=== PATIENT | male | born 1960 | race Caucasian/White ===

== ENCOUNTER 2019-02-07 13:54 | Outpatient (RCR) | payer OTHER, SELFPAY ==
[2019-02-07 14:05] VITALS: BP_SYST 90
--- NOTE | 2019-02-07 14:50 | PTOPEVAL ---
Thank you for referring this patient to [facility]. Please review, sign, date and return this plan of care [facility]. I agree with and certify that the following plan of care is medically necessary. Referring Physician Date Admitting Provider: Attending Provider: PHYSICIAN NOT ON STAFF Referring Provider: *PT Outpatient Evaluation Start: 02/07/19 14:05 Freq: Status: Active Protocol: Document 02/07/19 14:05 Lisy (Rec: 02/07/19 14:38 [facility] [id number]) Therapy Assessment Status Assessment Status Assessment Status Evaluation Outpatient Past Medical History Respiratory History Hx Asthma Yes Hx Bronchitis Yes Hx Chronic Obstructive Pulmonary Disease Yes (COPD) Gastrointestinal History Hx Cirrhosis Yes Hx Hepatitis Yes Psychosocial History Hx Depression Yes Evaluation Information Problem Diagnosis L shoulder pain, rotator cuff tear Onset 02/05/19 Additional Evaluation Detail quick dash = 40% Subjective Information patient reports he has been Query Text:As Reported By Patient/ having pain in the L shoulder Family for many years. however, he reports the pain has been significantly worse since a fall about 6 months ago. he reports he fell when he was dizzy. he reports he does ahve a rotator cuff tear in the L shoulder. he reports he is coming to therapy to improve his mobility and strengthen up the shoulder prior to surgery . Previous Treatments Previous Treatments For This Problem cortizone injection. Prior Level of Function Comments Additional Prior Level of Function patient reports since he fell Comments and injured his shoulder, he has been unable lift or carry objects. he reports he has also been unable to reach out to his side or get dressed. he reports prior to fall he was able to do all activities, but with mild pain in the L shoulder. Pain Assessment Timing of Pain Assessment Timing of Pain Assessment Assessment Pain Scale Pain Scale Used Numeric (1 - 10) Self Report Pain Assessment Left Shoulder(s) Reported Pain Level
--- NOTE | 2019-02-19 11:35 | PCPTNOTE ---
02/19/19 patient cancelled appt today. ERICK
--- NOTE | 2019-05-15 08:03 | PCPTNOTE ---
05/15/19 - mr. andre has recently had surgery, and is now coming to skilled PT under a new order. this account will be dc'd from skilled PT services and all progress towards goals will be taken from his most recent evaluation/note. MICHELLE
== END 2019-02-27 23:59 | disposition home or self-care (01) ==
LOC: CHSPT 13:54
DX: M25.512 Pain in left shoulder (principal)
CPT/HCPCS: 97014; 97110; 97162; G0283

== ENCOUNTER 2019-05-03 14:33 | Outpatient (RCR) | payer MEDICAID, OTHER, SELFPAY ==
--- NOTE | 2019-05-03 15:06 | PTOPEVAL ---
Thank you for referring this patient to [facility]. Please review, sign, date and return this plan of care LYRIC. I agree with and certify that the following plan of care is medically necessary. Referring Physician Date Admitting Provider: Attending Provider: Yogi Kirkpatrick, Referring Provider: *PT Outpatient Evaluation Start: 05/03/19 14:45 Freq: Status: Active Protocol: Document 05/03/19 14:45 J (Rec: 05/03/19 15:05 J [id number]) Therapy Assessment Status Assessment Status Assessment Status Evaluation Outpatient Past Medical History Respiratory History Hx Asthma Yes Hx Bronchitis Yes Hx Chronic Obstructive Pulmonary Disease Yes (COPD) Gastrointestinal History Hx Cirrhosis Yes Hx Hepatitis Yes Psychosocial History Hx Depression Yes Evaluation Information Problem Diagnosis s/p L RTC repair Onset 03/29/19 Additional Evaluation Detail patient arrives to therapy without a sling this date. he reports he is unable to do his home and self care activities with the sling on so he DC'd the sling himself. Subjective Information patient reports he had a Query Text:As Reported By Patient/ repairl of a torn RTC on 03/29 Family*. he reports the L shoulder had been getting weaker for several month prior to surgery . he reports he is currently still having pain, tightness, and decreased use of the L UE. he presents with orders for skilled outpatient therapy with restrictions for PROM and AAROM only. Prior Level of Function Comments Additional Prior Level of Function patient report prior to Comments surgery he was independent with all home and self care activities. he reports he does not work. he reports prior to beginning of weakness and discovery of tear he was able to do all activities without lifting or movement restrictions. Pain Assessment Timing of Pain Assessment Timing of Pain Assessment Assessment Pain Scale Pain Scale Used Numeric (1 - 10) Self Report Pain Asses
--- NOTE | 2019-05-10 13:05 | PCPTNOTE ---
Patient called and cancelled treatment today. ERICK
--- NOTE | 2019-05-16 14:29 | PCPTNOTE ---
05/16/19 - patient called and cancelled therapy this date. JTF
--- NOTE | 2019-05-24 14:06 | PCPTNOTE ---
05/24/19-pt called and cancelled apt today.-HM.
--- NOTE | 2019-06-14 13:34 | PCPTNOTE ---
06/14/19-pt cancelled apt as he tried to get a prescription filled and they said his insurance said it had been terminated and he did not know why. pt wanted to figure this out before seeking additional treatment. -BJORN
[2019-07-17 14:00] VITALS: BP_SYST 90
--- NOTE | 2019-07-17 14:54 | PTOPEVAL ---
Thank you for referring [address] to [facility]. Please review, sign, date and return this plan of care LYRIC. I agree with and certify that the following plan of care is medically necessary. Referring Physician Date Admitting Provider: Attending Provider: Yogi Kirkpatrick, MD Referring Provider: *PT Outpatient Evaluation Start: 05/03/19 14:45 Freq: Status: Active Protocol: Document 07/17/19 14:00 JTF (Rec: 07/17/19 14:54 [facility] [id number]) Therapy Assessment Status Assessment Status Assessment Status Re-evaluation Outpatient Past Medical History Respiratory History Hx Asthma Yes Hx Bronchitis Yes Hx Chronic Obstructive Pulmonary Disease Yes (COPD) Gastrointestinal History Hx Cirrhosis Yes Hx Hepatitis Yes Psychosocial History Hx Depression Yes Evaluation Information Problem Diagnosis s/p L RTC repair Additional Evaluation Detail 3+ months post-op Subjective Information patient reports he is sore Query Text:As Reported By Patient/ still this date. he reports he Family has been away from therapy due to insurance reasons. he reports has been doing his exercises at home. he reports he still has limited strength and mobility of the L shoulder . he presents to therapy with a new order from his MD to continue skilled PT. Pain Assessment Timing of Pain Assessment Timing of Pain Assessment Assessment Pain Scale Pain Scale Used Numeric (1 - 10) Self Report Pain Assessment Left Shoulder(s) Reported Pain Level 4 Pain Description Aching,Soreness Greatest Pain Intensity 10 Pain Score Pain Score 4: Self Report Upper Extremity Range of Motion Scapular/ Shoulder Range of Motion Left Shoulder Flexion - Active 90 Shoulder Flexion - Passive 130 Shoulder Abduction - Active 75 Shoulder Abduction - Passive 90 Shoulder Medial Rotation - Passive 20 Shoulder Medial Rotation - Active functional reach to the Query Text:Reach Behind the Back occiput/upper cervical spine with compensation by shoulder adduction and flexion. Shoulder Lateral Rotation - Passive 45 Shoulder Lateral Rotation - Active functional reach to the Query Text:Reach Behind the Head ipsilateral PSIS. Upper Extremity Muscle Strength Testing Scapular/Shoulder Left Shoulder Flexion Strength 3- Fair - Shoulder Abduction Strength
== END 2019-08-07 16:17 | disposition still patient (30) ==
LOC: CHSPT 14:33
PROVIDERS: Visit Provider Orthopaedic Surgery
DX: M75.102 Unspecified rotator cuff tear or rupture of left shoulder, not specified as traumatic (principal)
CPT/HCPCS: 97014; 97110; 97140; 97161; G0283

== ENCOUNTER 2019-08-07 14:32 | Outpatient (RCR) | payer OTHER, SELFPAY ==
[2019-08-02 16:20] VITALS: BP_SYST 90
--- NOTE | 2019-08-13 13:09 | PCPTNOTE ---
patient cancelled appt today. ERICK
--- NOTE | 2019-11-20 16:32 | PCPTNOTE ---
11/20/19 - patient has not been to therapy in several months. as of this date, patient will be DC'd from skilled PT services, and all progress towards goals will be taken from patients most recent evaluation/note. MICHELLE
== END 2019-09-25 23:59 | disposition home or self-care (01) ==
LOC: CHSPT 14:32
PROVIDERS: Visit Provider Orthopaedic Surgery
DX: M75.102 Unspecified rotator cuff tear or rupture of left shoulder, not specified as traumatic (principal)
CPT/HCPCS: 97014; 97110; G0283

== ENCOUNTER 2021-01-23 12:50 | Outpatient (CLI) | payer MEDICARE, SELFPAY ==
--- NOTE | ~2021-01-23 | CT_ITS ---
EXAMINATION: CT lung screening DATE: 01/23/2021 13:09 INDICATION: History of tobacco dependence. TECHNIQUE: Computed tomography (CT) of the chest was performed without intravenous contrast. The dose -length product was 148.72 mGy-cm. Automated exposure control and iterative reconstruction technique were employed. COMPARISON: CT dated 05/24/2018 FINDINGS: No thoracic lymphadenopathy. No significant pleural or pericardial effusion. Heart size is normal. The upper abdomen is unremarkable. There is a 5 mm groundglass nodule in the right upper lobe , image 27. There is linear scarring/atelectasis of the left upper lobe, unchanged from prior study. There is apical pleural thickening/scarring. There are small upper lobe nodules measuring 2 mm or les s in the subpleural space. No focal airspace consolidation. No endobronchial lesions. No pneumothorax . No acute osseous abnormality. IMPRESSION: 1. Lung-RADS category 2: Benign appearance or behavior. Continue annual screening with noncontrast lo w-dose chest CT in 12 months. Reviewed, dictated and finalized at location A. IMPRESSION: 1. Lung-RADS category 2: Benign appearance or behavior. Continue annual screeni ng with noncontrast low-dose chest CT in 12 months.
== END 2021-01-23 12:51 | disposition home or self-care (01) ==
LOC: CHSIMG 12:53
PROVIDERS: PCP Family Medicine; Visit Provider Family Medicine
DX: Z12.2 Encounter for screening for malignant neoplasm of respiratory organs (principal); Z87.891 Personal history of nicotine dependence
CPT/HCPCS: 71271

== ENCOUNTER 2021-01-26 12:27 | Outpatient (CLI) | payer MEDICARE, MEDICAID, SELFPAY ==
--- NOTE | ~2021-01-26 | US_ITS ---
EXAMINATION: US abdomen complete DATE: 01/26/2021 13:01 INDICATION: Alcoholic cirrhosis TECHNIQUE: Multiple grayscale and Doppler ultrasound images of the abdomen were obtained. COMPARISON: CT, 12/03/2018 FINDINGS: Bowel gas obscures visualization of the pancreas. The visualized portions of the pancreas a re unremarkable. There is a 1.3 x 1.6 x 1.6 cm hypoechoic lesion of the right hepatic lobe. The liver surface is nodular. Normal hepatopetal flow in the main portal vein. There is a small amount of debr is in the gallbladder neck. There is no wall thickening, pericholecystic fluid or gallbladder distent ion. The normal common bile duct measures 6 mm. There was no sonographic Damon sign. The visualized portions of the aorta and inferior vena cava are normal. The right kidney measures 11.4 x 5.8 x 5.6 cm. The left kidney measures 11.0 x 5.8 x 5.1 cm. The kidn eys demonstrate normal parenchymal echogenicity. There is no hydronephrosis. The spleen is normal in appearance and measures 10.3 cm. IMPRESSION: 1. Cirrhosis with an indeterminate hypoechoic lesion of the right hepatic lobe. Finding raises concer n for hepatocellular carcinoma. Further evaluation by CT or MRI without and with contrast is recommen ded. Reviewed, dictated and finalized at location B. IMPRESSION: 1. Cirrhosis with an indeterminate hypoechoic lesion of the right hepatic lobe. Finding raises concern for hepatocellular carcinoma. Further evaluation by CT or MRI without and with contrast is recommended.
== END 2021-01-26 12:28 | disposition home or self-care (01) ==
LOC: CHSIMG 12:30
PROVIDERS: PCP Family Medicine; Visit Provider Family Medicine
DX: K70.30 Alcoholic cirrhosis of liver without ascites (principal)
CPT/HCPCS: 76700

== ENCOUNTER 2021-01-30 12:07 | Outpatient (CLI) | payer MEDICARE, MEDICAID, SELFPAY ==
--- NOTE | ~2021-01-30 | CT_ITS ---
EXAMINATION: CT abdomen wo/w con INDICATION: Alcoholic cirrhosis of the liver without ascites, indeterminate liver mass on ultrasound TECHNIQUE: Computed tomographic images of the abdomen were obtained without intravenous contrast. Joann ges were then obtained after the administration of 100 cc of Omnipaque 350 intravenous contrast in th e arterial and portal venous phases. The dose-length product (DLP) was 1009.60 mGy-cm. Automated expo sure control and iterative reconstruction technique were employed. COMPARISON: CT, 12/03/2018; ultrasound, 01/26/2021 FINDINGS: The visualized lung bases are clear. The heart size is normal. There is a 1.7 cm arterial e nhancing lesion in liver segment VII which fades to isodense in the portal venous phase. No enhancing capsule or washout are identified. There is nodularity of the liver surface. The spleen, pancreas, a nd adrenal glands are normal. There is mild gallbladder distention. Gastric and splenic varices are n oted. The kidneys are unremarkable. There are no pathologically enlarged abdominal lymph nodes. There is no free intraperitoneal gas or evidence of bowel obstruction. IMPRESSION: 1. LI-RADS category 3, intermediate probability of malignancy. Follow-up CT or MRI without and with c ontrast in 3-6 months is recommended. Reviewed, dictated and finalized at location B. IMPRESSION: 1. LI-RADS category 3, intermediate probability of malignancy. Follow-up CT or MRI without and with contrast in 3-6 months is recommended.
== END 2021-01-30 12:08 | disposition home or self-care (01) ==
LOC: CHSIMG 12:08
PROVIDERS: PCP Family Medicine; Visit Provider Family Medicine
DX: K70.30 Alcoholic cirrhosis of liver without ascites (principal)
CPT/HCPCS: 74170; Q9967

== ENCOUNTER 2021-02-16 15:59 | Outpatient (CLI) | payer MEDICARE, MEDICAID, SELFPAY ==
[2021-02-16 16:16] LABS: Basophils Percent Auto 0.4 % (0.2-1.2); Eosinophils Absolute Auto 0.1 K/mm3 (0-0.3); Eosinophils Percent Auto 2.2 % (0-4.4); Hematocrit 33.4 % (42.0-52.0); Hemoglobin 11.6 g/dL (14.0-18.0); Lymphocytes Absolute Auto 1.48 K/mm3 (0.9-3.2); Lymphocytes Percent Auto 54.8 % (18.3-44.2); Mean Corpuscular HGB Conc 34.7 g/dl (32-36); Mean Corpuscular Hemoglobin 40.3 pg (26-34); Mean Platelet Volume 9.5 fl (7.4-10.4); Monocytes Absolute Auto 0.3 K/mm3 (0.1-0.6); Monocytes Percent Auto 9.3 % (2.6-8.5); Neutrophils Absolute Auto 0.9 K/mm3 (1.3-6.7); Neutrophils Percent Auto 33.3 % (45.5-73.1); Platelet Count Result 28 k/mm3 (150-375); Red Blood Count 2.88 M/mm3 (4.6-6.20); Red Cell Distribution Width 14.5 % (11.5-14.5); White Blood Count 2.7 K/mm3 (4.5-10.0)
[2021-02-16 16:52] LABS: Alanine Aminotransferase 35 U/L (4-50); Albumin Level 3.7 g/dL (3.5-5.1); Alkaline Phosphatase 133 U/L (38-126); Anion Gap 4 mmol/L (8-16); Aspartate Amino Transferase 66 U/L (17-59); Bilirubin,Total 1.5 mg/dL (0.2-1.3); Blood Urea Nitrogen 5 mg/dL (9-20); Calcium 9.2 mg/dL (8.4-10.2); Carbon Dioxide 29 mmol/L (22-30); Chloride 98 mmol/L (98-107); Estimated Glomerular Filt Rate > 60; Glucose 108 mg/dL (65-110); Potassium 3.9 mmol/L (3.4-5.0); Sodium 131 mmol/L (137-145)
[2021-02-16 16:58] LABS: Iron 271 ug/dL (49-181)
[2021-02-16 17:08] LABS: Percent Iron Saturation 90 % (20-50)
[2021-02-16 19:28] LABS: Folic Acid 3.8 ng/mL (2.76->20)
== END 2021-02-16 16:00 | disposition home or self-care (01) ==
LOC: ANHLAB 16:05
PROVIDERS: PCP Family Medicine; Visit Provider Internal Medicine Hematology & Oncology
DX: D64.9 Anemia, unspecified (principal)
CPT/HCPCS: 36415; 80053; 82607; 82728; 82746; 83540; 83550; 85025; 85055

== ENCOUNTER 2021-06-15 15:59 | Outpatient (CLI) | payer MEDICARE, SELFPAY ==
[2021-06-15 17:21] LABS: Estimated Glomerular Filt Rate > 60
== END 2021-06-15 16:00 | disposition home or self-care (01) ==
LOC: CHSLAB 16:00
PROVIDERS: PCP Family Medicine; Visit Provider Family Medicine
DX: Z04.9 Encounter for examination and observation for unspecified reason (principal)
CPT/HCPCS: 99199

== ENCOUNTER 2021-06-16 12:43 | Outpatient (CLI) | payer MEDICARE, SELFPAY ==
--- NOTE | ~2021-06-16 | CT_ITS ---
EXAMINATION: CT abdomen pelvis wo/w con DATE: 06/16/2021 13:31 INDICATION: Follow-up liver mass TECHNIQUE: Computed tomography (CT) of the abdomen and pelvis was performed without and with 100 cc O mnipaque 350 intravenous contrast. The dose-length product was 1398.52 mGy-cm. Automated exposure con trol and iterative reconstruction technique were employed. COMPARISON: CT dated 01/26/2021. FINDINGS: There is an enlarging 2.1 cm hypervascular mass of the right hepatic lobe with a background of cirrhosis of the liver. Portal vein appears to be patent. There is a hypervascular lesion of the spleen measuring 2 cm. The pancreas, adrenal glands and kidneys are unremarkable. Gallbladder is pres ent. Nonobstructive bowel gas pattern. There is bladder wall thickening, likely due to underdistentio n. No significant lymphadenopathy. There are multiple collateral vessels in the upper abdomen suggest ing portal hypertension. Moderate lumbar spondylosis. No focal lytic or blastic lesions. IMPRESSION: 1. Enlarging 2.1 cm hypervascular mass of the right hepatic lobe with a background of cirrhosis. This must be presumed hepatocellular carcinoma until proven otherwise. 2: Subtle hypovascular mass of the spleen measures 2 cm, possibly metastases. Reviewed, dictated and finalized at location A. IMPRESSION: 1. Enlarging 2.1 cm hypervascular mass of the right hepatic lobe with a backgro und of cirrhosis. This must be presumed hepatocellular carcinoma until proven o therwise. 2: Subtle hypovascular mass of the spleen measures 2 cm, possibly metastases.
== END 2021-06-16 12:44 | disposition home or self-care (01) ==
PROVIDERS: PCP Family Medicine; Visit Provider Family Medicine
DX: R16.0 Hepatomegaly, not elsewhere classified (principal)
CPT/HCPCS: 74178; Q9967

== ENCOUNTER 2021-07-01 06:54 | Outpatient (CLI) | payer MEDICARE, SELFPAY ==
--- NOTE | 2021-06-24 12:56 | PC.NURSE ---
Pre Radiology instructions Report to the Outpatient Waiting Room, entrance under the green pavilion located off [facility], at time 0730_ on date 07/03/21 . Procedure Time: __929 . One visitor will be allowed to accompany the patient into the hospital. The visitor will be instructed to remain with patient at all times or leave the building. We will allow the visitor to come back to the postoperative area when patient is ready. You and your visitor will be asked a series of questions to screen for COVID 19 for your protection. NO FOOD OR LIQUID FOR 6 HOURS BEFORE SURGERY-STOP AT 3:30 AM ON 07/03/21 A mask is required within the hospital. Pre-procedure COVID Testing Requirements: No COVID Test needed if: (proof is required; if not received patient will have Rapid Test prior to entry)- Patient has received COVID Vaccine at least 14 days prior to procedure date or- Patient has positive COVID test result within last 90 days of procedure date. COVID Test needed if above criteria is not met If not COVID vaccinated a COVID test must be conducted within 72 hours of surgery and patient is asked to isolate self from time of testing until procedure. You will go to the [facility] for your COVID testing. The [facility] is located at the corner of [address] [facility]. You will only be called if COVID results are positive and your surgeon may reschedule your elective procedure date Patients are to have no food or drink 6 hours prior to procedure time Driving will be restricted after the procedure, you must have a person to drive you home. Labs will be drawn in preop area and once reviewed, you will be taken to radiology area for procedure. When the procedure is completed, you will be taken to outpatient where you will be monitored for several hours. You may have one visitor in this area. Other than holding anti-coagulants, patient may take other medication(s) as scheduled. Prior to your appointment date patients are instructed to hold anti-coagulants after discussing with ordering provider to stop. If unable to discontinue anti-coagulants please notify radiologist. No aspirin or warfarin (Coumadin) for 7 days prior to the procedure. No clopidogrel (Plavix), ticagrelor (Brilinta), prasugrel (Effient) or dabigatran (Pradaxa) for 5 days prior to the procedure. No rivaroxaban (Xarelto), apixaban (Eliquis), dipyridamole (Aggrenox or Persantine) or cilostazol (Pletal) for 2 days prior to the procedure. Medications to discontinue per physician: N/A Date to take last dose: TAKE NORMAL MORNING MEDS Please leave all valuables, including medications, at home the day of procedure. The hospital will not accept responsibility for valuables. Wear comfortable, loose fitting clothing. Follow any additional instructions given to you from ordering provider. Telephone instructions given to ___PAUL and asked if any additional questions and then verbalized understanding. Patient advised to call scheduling provider office or registration scheduling [phone] if any additional questions.
[2021-06-24 13:12] VITALS: BMI 25.4
--- NOTE | ~2021-07-01 | US_ITS ---
I discussed the 2.1 cm liver mass with Dr. Mg. The imaging grade is LI-RADS category LR-5: Def initely hepatocellular carcinoma. Given the imaging category of the mass and the relatively high biop sy risk from the patient's low platelet count, I recommend treating the patient without a tissue diag nosis. The biopsy today was canceled. Reviewed, dictated and finalized at location A.
[2021-07-01 07:26] LABS: Immature Platelet Fraction Pct 4.7 % (0.9-11.2); Mean Platelet Volume 10.7 fl (7.4-10.4); Platelet Count Result 31 k/mm3 (150-375)
[2021-07-01 07:29] VITALS: BP 154/82; PULSE 78; RESP 18; TEMP 36.8; O2SAT 100
[2021-07-01 07:34] LABS: INR 1.6; Prothrombin Time 18.7 Seconds (11.1-14.7)
== END 2021-07-01 08:40 | disposition home or self-care (01) ==
LOC: ANHSURGERY 06:57
PROVIDERS: PCP Family Medicine; Visit Provider Radiology Diagnostic Radiology
PROC: BF45ZZZ Ultrasonography of Liver (ICD-10-PCS; CPT 47000; principal; 2021-07-01 09:30)
DX: K76.9 Liver disease, unspecified (principal)
CPT/HCPCS: 36415; 85049; 85055; 85610; 99199; 99211; G0463

== ENCOUNTER 2021-07-20 14:02 | Outpatient (CLI) | payer MEDICARE, MEDICAID, SELFPAY ==
[2021-07-20 14:18] LABS: Hematocrit 33.2 % (40.0-54.0); Hemoglobin 11.5 g/dL (14.0-18.0); Immature Platelet Fraction Pct 3.4 % (1.0-7.0); Mean Corpuscular HGB Conc 34.6 g/dL (32.0-36.0); Mean Corpuscular Hemoglobin 40.5 pg (27.0-31.0); Mean Corpuscular Volume 116.9 fL (78.0-102.0); Mean Platelet Volume 9.9 fl (8.7-11.0); Platelet Count Result 31 K/mm3 (150-420); Red Blood Count 2.84 M/mm3 (4.70-6.10); Red Cell Distribution Width 15.5 % (11.6-14.4); White Blood Count 3.5 K/mm3 (4.8-10.8)
[2021-07-20 15:31] LABS: Alanine Aminotransferase 53 U/L (16-63); Albumin Level 2.8 g/dL (3.4-5.0); Alkaline Phosphatase 140 U/L (46-116); Anion Gap 7 mmol/L (8-16); Aspartate Amino Transferase 64 U/L (15-37); Bilirubin,Total 1.6 mg/dL (0.00-1.00); Blood Urea Nitrogen 10 mg/dL (7-18); Calcium 8.3 mg/dL (8.5-10.1); Carbon Dioxide 27 mmol/L (21-32); Chloride 99 mmol/L (98-108); Estimated Glomerular Filt Rate > 60; Ferritin 769 ng/mL (26-388); Glucose 105 mg/dL (70-99); Iron 212 ug/dL (65-175); Osmolality Calculated 275 mOsm/kg (285-295); Percent Iron Saturation 108 % (12-57); Potassium 3.6 mmol/L (3.5-5.1); Sodium 133 mmol/L (136-145); Total Protein 7.4 g/dL (6.4-8.2)
== END 2021-07-20 14:03 | disposition home or self-care (01) ==
LOC: CHSLAB 14:05
PROVIDERS: PCP Family Medicine; Visit Provider Internal Medicine Hematology & Oncology
DX: D64.9 Anemia, unspecified (principal)
CPT/HCPCS: 36415; 80053; 82728; 83540; 83550; 85027; 85055

== ENCOUNTER 2021-07-31 13:00 | Outpatient (CLI) | payer MEDICARE, MEDICAID, SELFPAY ==
--- NOTE | ~2021-07-31 | CT_ITS ---
EXAMINATION: CT abdomen pelvis wo/w con DATE: 07/31/2021 13:32 INDICATION: Liver mass. Abdominal pain. Hematuria. TECHNIQUE: Computed tomography (CT) of the abdomen and pelvis was performed without and with 100 mL O mnipaque 350 intravenous contrast. Automated exposure control and iterative reconstruction technique were employed. The dose-length product was 1134.11 mGy-cm. COMPARISON: CT abdomen and pelvis 06/16/2021, CT abdomen 01/30/21 FINDINGS: The visualized portions of the lung bases are clear without pneumonia or pleural effusion. The heart size is normal. No pericardial effusion. The liver demonstrates a nodular surface contour, consistent with cirrhosis. In the right hepatic lobe, there is a 2.3 cm arterially hyperenhancing mas s with washout, increased from 2.0 cm on 01/30/21. The gallbladder is normal. The spleen is normal in size. The pancreas, adrenal glands, and kidneys are normal. There are paraesophageal varices. There i s a splenorenal venous shunt. There are no dilated loops of bowel. The appendix is normal. There is n o free intraperitoneal fluid. There are no pathologically enlarged lymph nodes. The prostate is mildl y enlarged. There is a right inguinal hernia containing fat. There is severe lower lumbar spondylosis . IMPRESSION: 1. LI-RADS category 5: Definitely hepatocellular carcinoma. 2. Cirrhosis of the liver with portal venous hypertension. Reviewed, dictated and finalized at location A.
== END 2021-07-31 13:01 | disposition home or self-care (01) ==
LOC: CHSIMG 13:01
PROVIDERS: PCP Family Medicine; Visit Provider Family Medicine
DX: R16.0 Hepatomegaly, not elsewhere classified (principal); R10.9 Unspecified abdominal pain
CPT/HCPCS: 74178; Q9967

== ENCOUNTER 2021-09-09 16:15 | Outpatient (CLI) | payer MEDICARE, SELFPAY ==
--- NOTE | ~2021-09-09 | XR_ITS ---
EXAM: XR ribs LT 2V w CXR 2V DATE: 09/09/2021 17:05 HISTORY: LT sided lower rib pain x 3 days NKI . COMPARISON: None available. FINDINGS: Left humeral soft tissue anchors. Normal mineralization. No fracture or dislocation. No lyt ic or blastic lesion. Joint spaces are maintained. No erosion or periosteal change. Soft tissues with in normal limits. IMPRESSION: No acute osseous finding in the left ribs. Reviewed, dictated and finalized at location K.
[2021-09-09 16:36] LABS: Basophils Absolute Auto 0.02 K/mm3 (0.00-0.10); Basophils Percent Auto 0.5 % (0.0-1.0); Eosinophils Percent Auto 2.4 % (1.0-6.0); Hematocrit 29.6 % (40.0-54.0); Hemoglobin 10.2 g/dL (14.0-18.0); Immature Granulocyte Absolute 0.01 K/mm3 (0.00-0.00); Immature Granulocyte Percent A 0.2 % (0.0-0.0); Immature Platelet Fraction Pct 2.5 % (1.0-7.0); Lymphocytes Percent Auto 47.6 % (18.0-42.0); Mean Corpuscular HGB Conc 34.5 g/dL (32.0-36.0); Mean Corpuscular Hemoglobin 43.4 pg (27.0-31.0); Mean Platelet Volume 10.2 fl (8.7-11.0); Monocytes Absolute Auto 0.51 K/mm3 (0.10-0.90); Monocytes Percent Auto 12.1 % (2.0-11.0); Neutrophils Absolute Auto 1.6 K/mm3 (1.7-7.2); Neutrophils Percent Auto 37.2 % (50.0-70.0); Platelet Count Result 40 K/mm3 (150-420); Red Blood Count 2.35 M/mm3 (4.70-6.10); White Blood Count 4.2 K/mm3 (4.8-10.8)
[2021-09-09 17:04] LABS: Alanine Aminotransferase 40 U/L (16-63); Albumin Level 2.7 g/dL (3.4-5.0); Alkaline Phosphatase 116 U/L (46-116); Amylase 65 U/L (25-115); Anion Gap 7 mmol/L (8-16); Aspartate Amino Transferase 47 U/L (15-37); Bilirubin,Total 1.3 mg/dL (0.00-1.00); Blood Urea Nitrogen 5 mg/dL (7-18); Calcium 8.5 mg/dL (8.5-10.1); Carbon Dioxide 27 mmol/L (21-32); Chloride 99 mmol/L (98-108); Estimated Glomerular Filt Rate > 60; Glucose 97 mg/dL (70-99); Lipase 251 U/L (73-393); Osmolality Calculated 273 mOsm/kg (285-295); Potassium 3.6 mmol/L (3.5-5.1); Sodium 133 mmol/L (136-145); Total Protein 7.9 g/dL (6.4-8.2)
== END 2021-09-09 16:16 | disposition home or self-care (01) ==
LOC: CHSLAB 16:18
PROVIDERS: PCP Family Medicine; Visit Provider Family Medicine
DX: R10.12 Left upper quadrant pain (principal); K92.1 Melena; R07.89 Other chest pain
CPT/HCPCS: 36415; 71046; 71100; 80053; 82150; 83690; 85025; 85055

== ENCOUNTER 2021-09-11 10:32 | Outpatient (CLI) | payer MEDICARE, SELFPAY ==
--- NOTE | ~2021-09-11 | US_ITS ---
EXAMINATION: US abdomen limited DATE: 09/11/2021 11:30 INDICATION: Left upper quadrant pain for 3 days. Pain had subsided at the time of examination. Histor y of cirrhosis, portal venous hypertension, and hepatocellular carcinoma. TECHNIQUE: Multiple grayscale and Doppler ultrasound images of limited portions of the abdomen were o btained. COMPARISON: CT abdomen and pelvis 07/31/2021 FINDINGS: The left kidney was grossly normal, without hydronephrosis, mass, or calcification. The spl een is normal in appearance and measures 11.2 cm. IMPRESSION: 1. Normal left upper quadrant ultrasound findings. Reviewed, dictated and finalized at location K.
== END 2021-09-11 10:33 | disposition home or self-care (01) ==
LOC: CHSIMG 10:34
PROVIDERS: PCP Family Medicine; Visit Provider Family Medicine
DX: R10.12 Left upper quadrant pain (principal)
CPT/HCPCS: 76705

== ENCOUNTER 2022-06-02 16:10 | Outpatient (CLI) | payer MEDICARE, SELFPAY ==
--- NOTE | ~2022-06-02 | XR_ITS ---
XR sacrum coccyx min 2V DATE: 06/02/2022 18:03 INDICATION: Left leg numbness for one month. No known injury. TECHNIQUE: AP, angled AP and lateral views COMPARISON: None FINDINGS: Mild degenerative disc disease at L3-4, L4-5 and moderate degenerative disc disease at L5-S 1. No fracture or bone destruction of the sacrum or coccyx is evident. The pubic symphysis and sacroilia c joints are intact. No erosive change or ankylosis at the sacroiliac joints. IMPRESSION: No significant abnormality of the sacrum or coccyx Degenerative disease of the lumbar spine Reviewed, dictated and finalized at location L. 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
[2022-06-02 16:30] LABS: Appearance Urine Clear (Clear); Bilirubin Urine 1+ (Negative); Blood Urine Trace-Intact (Negative); Glucose Urine UA Negative (Negative); Ketones Urine Trace (Negative); Leukocyte Esterase Ur Trace (Negative); Nitrate Urine Negative (Negative); Protein Urine Negative (Negative)
[2022-06-02 16:32] LABS: Basophils Absolute Auto 0.01 K/mm3 (0.00-0.10); Basophils Percent Auto 0.2 % (0.0-1.0); Eosinophils Absolute Auto 0.16 K/mm3 (0.02-0.50); Eosinophils Percent Auto 3.4 % (1.0-6.0); Hematocrit 34.5 % (40.0-54.0); Hemoglobin 11.9 g/dL (14.0-18.0); Immature Granulocyte Absolute 0.01 K/mm3 (0.00-0.00); Immature Granulocyte Percent A 0.2 % (0.0-0.0); Immature Platelet Fraction Pct 2.3 % (1.0-7.0); Lymphocytes Absolute Auto 2.22 K/mm3 (1.10-4.50); Lymphocytes Percent Auto 46.9 % (18.0-42.0); Mean Corpuscular HGB Conc 34.5 g/dL (32.0-36.0); Mean Corpuscular Hemoglobin 40.6 pg (27.0-31.0); Mean Corpuscular Volume 117.7 fL (78.0-102.0); Mean Platelet Volume 9.8 fl (8.7-11.0); Monocytes Absolute Auto 0.71 K/mm3 (0.10-0.90); Neutrophils Absolute Auto 1.6 K/mm3 (1.7-7.2); Neutrophils Percent Auto 34.3 % (50.0-70.0); Platelet Count Result 68 K/mm3 (150-420); Red Blood Count 2.93 M/mm3 (4.70-6.10); Red Cell Distribution Width 15.6 % (11.6-14.4); White Blood Count 4.7 K/mm3 (4.8-10.8)
[2022-06-02 17:03] LABS: Add Urine Microscopic? YES; Bacteria Urine Trace /hpf; Color Urine Dark Yellow (Yellow); RBC Urine 0-2 /hpf (0-2); Squamous Epithelial Cell Urine Rare /hpf (Few); WBC Urine 0-3 /hpf (0-3)
[2022-06-02 17:04] LABS: Mucus Urine Moderate /lpf
[2022-06-02 17:22] LABS: Alanine Aminotransferase 11 U/L (16-63); Albumin Level 2.9 g/dL (3.4-5.0); Alkaline Phosphatase 150 U/L (46-116); Ammonia 36 umol/L (11-32); Anion Gap 4 mmol/L (8-16); Aspartate Amino Transferase 33 U/L (15-37); Bilirubin,Total 0.8 mg/dL (0.00-1.00); Blood Urea Nitrogen 7 mg/dL (7-18); Calcium 8.3 mg/dL (8.5-10.1); Carbon Dioxide 30 mmol/L (21-32); Chloride 100 mmol/L (98-108); Creatinine Urine 268.39 mg/dL (40-278); Estimated Glomerular Filt Rate > 60; Glucose 73 mg/dL (70-99); MALB Creatinine Ratio 4.8 mg/g (0-30); Microalbumin Urine Random < 13.0 mg/L; Osmolality Calculated 275 mOsm/kg (285-295); Potassium 3.7 mmol/L (3.5-5.1); Sodium 134 mmol/L (136-145); Thyroid Stimulating Hormone 2.07 uIU/mL (0.36-3.74); Total Protein 7.7 g/dL (6.4-8.2)
== END 2022-06-02 16:11 | disposition home or self-care (01) ==
LOC: CHSLAB 16:13
PROVIDERS: PCP Family Medicine; Visit Provider Family Medicine
DX: K70.30 Alcoholic cirrhosis of liver without ascites (principal); M51.36 Other intervertebral disc degeneration, lumbar region; M21.372 Foot drop, left foot; I50.9 Heart failure, unspecified
CPT/HCPCS: 36415; 72220; 80053; 81001; 82043; 82140; 84443; 85025; 85055

== ENCOUNTER 2022-06-10 09:30 | Outpatient (CLI) | payer MEDICARE, SELFPAY ==
--- NOTE | ~2022-06-10 | MR_ITS ---
MRI of the brain Clinical History: Hand tremors, left foot trauma Technique: Axial and sagittal T1-weighted images were acquired. These were followed by axial T2-weigh chandana, diffusion weighted, gradient, and FLAIR images. Following intravenous administration of 18 cc Mu ltiHance gadolinium, T1-weighted fat-sat imaging was performed in the axial and coronal planes. COMPARISON: 12/07/2017 Findings: There is no acute infarct, intracranial hemorrhage, or mass lesion. Minimal chronic white m atter changes are noted in the periventricular white matter bilaterally. There is mild T1 hyperintens e signal in the basal ganglia bilaterally. Ventricles and subarachnoid spaces are unremarkable. Orbits are unremarkable. There is mild left maxi llary sinus disease. Remaining paranasal sinuses and mastoid air cells are clear. Major intracranial flow voids are intact. Sagittal midline structures are intact. No abnormal postcontrast enhancement identified. IMPRESSION: Hyperintense T1 signal the basal ganglia. This has a somewhat broad differential, with possible cause s including calcification, Tonio's disease, hepatic encephalopathy, manganese deposition, or non-ket otic hyperglycemic hemichorea. Reviewed, dictated and finalized at location . IMPRESSION: Hyperintense T1 signal the basal ganglia. This has a somewhat broad differentia l, with possible causes including calcification, Tonio's disease, hepatic ence phalopathy, manganese deposition, or non-ketotic hyperglycemic hemichorea.
== END 2022-06-10 09:31 | disposition home or self-care (01) ==
LOC: CHSIMG 09:31
PROVIDERS: PCP Family Medicine; Visit Provider Family Medicine
DX: M21.372 Foot drop, left foot (principal); R93.0 Abnormal findings on diagnostic imaging of skull and head, not elsewhere classified
CPT/HCPCS: 70553; A9577

== ENCOUNTER 2022-07-14 15:39 | Outpatient (CLI) | payer MEDICARE, SELFPAY ==
--- NOTE | ~2022-07-14 | XR_ITS ---
XR chest 2V DATE: 07/14/2022 15:59 INDICATION: Dyspnea for several months. History of COPD. TECHNIQUE: 2 views COMPARISON: 09/09/2021 2 view chest FINDINGS: Bilateral hyperinflation, suggesting COPD. No pulmonary infiltrate or consolidation, pleura l effusion or pulmonary vascular congestion or pneumothorax is detected. Heart size appears normal. T here is aortic arch calcification. No hilar or mediastinal enlargement. There are 2 anchor devices of the left humeral head. Osteopenia. IMPRESSION: Bilateral hyperinflation consistent with COPD No active cardiopulmonary disease Aortic atherosclerosis Reviewed, dictated and finalized at location B.
== END 2022-07-14 15:40 | disposition home or self-care (01) ==
LOC: CHSLAB 15:41
PROVIDERS: PCP Family Medicine; Visit Provider Family Medicine
DX: R06.00 Dyspnea, unspecified (principal); R91.8 Other nonspecific abnormal finding of lung field; I70.0 Atherosclerosis of aorta
CPT/HCPCS: 71046

== ENCOUNTER 2022-07-30 13:28 | Outpatient (CLI) | payer MEDICARE, MEDICAID, SELFPAY ==
--- NOTE | 2022-07-30 13:36 | ECHO_ITS ---
Patient Info Name: Olivier Street Age: 61 years : 1960 Gender: Male Ht: 71 in Wt: 194 lbs BSA: 2.11 m2 HR: 129 bpm BP: 119 / 79 mmHg Heart Rhythm: Sinus Rhythm Technical Quality: Fair Exam Date: 07/30/2022 1:45 PM Exam Location: [facility] Patient Status: Outpatient Admit Date: 07/30/2022 Staff Ordering Physician: Bayron Mg MD Internal Affairs Commander: Judith Crane RDCS Attending Provider: Bayron Mg MD Referring Physician: Haritha ALVARADO; Exam Type: CA echo doppler color flow Study Info Indications - DYSPNEA Complete two-dimensional, color flow and Doppler transthoracic echocardiogram is performed. Summary 1. Complete two-dimensional, color flow and Doppler transthoracic echocardiogram is performed. 2. Left ventricular chamber dimension is normal. 3. Left ventricular systolic function is normal, estimated at 65-70%. 4. The left ventricular diastolic function is normal. 5. E/e' 9 is minimally elevated. 6. There is mild aortic valve sclerosis. 7. There is trace tricuspid valve regurgitation. 8. No pulmonary hypertension, estimated pulmonary arterial systolic pressure is 35 mmHg. Left Ventricle E/e' 9 is minimally elevated. Left ventricular chamber dimension is normal. Left ventricular systolic function is normal, estimated at 65-70%. The left ventricular diastolic function is normal. Right Ventricle Right ventricular systolic function is normal and with normal TAPSE 2.2 cm. Right ventricular chamber dimension is normal. Left Atria Left atrial chamber dimension is normal. Right Atria Right atrial chamber dimension is normal. Aortic Valve The aortic valve is trileaflet. There is mild aortic valve sclerosis. There is no aortic valve stenosis. There is no aortic valve regurgitation. Pulmonic Valve There is no pulmonic regurgitation. Mitral Valve There is no mitral valve stenosis. There is no mitral valve regurgitation. Tricuspid Valve There is trace tricuspid valve regurgitation. No pulmonary hypertension, estimated pulmonary arterial systolic pressure is 35 mmHg. Pericardium/Pleural There is no pericardial effusion. Inferior Vena Cava Normal inferior vena cava with >50% collapse upon inspiration consistent with normal right atrial pressure, 5 mmHg. Aorta The aortic root size at the sinus of Valsalva is normal. Left Ventricular Outflow Tract Name Value Normal LVOT 2D LVOT Diameter 2.0 cm LVOT Doppler LVOT Peak Velocity 127 cm/s LVOT Peak Gradient 6 mmHg LVOT Mean Gradient 3 mmHg LVOT VTI 22 cm LVOT VTI/AV VTI Ratio 0.9 LVOT Stroke Volume 67 ml Pulmonic Valve Name Value Normal RVOT Doppler RVOT Peak Gradient 3 mmHg PV Doppler PV
== END 2022-07-30 13:29 | disposition home or self-care (01) ==
LOC: CHSIMG 13:29
PROVIDERS: PCP Family Medicine; Visit Provider Family Medicine
DX: R06.00 Dyspnea, unspecified (principal); I35.8 Other nonrheumatic aortic valve disorders
CPT/HCPCS: 93306

== ENCOUNTER 2022-08-03 09:45 | Outpatient (CLI) | payer MEDICARE, MEDICAID, SELFPAY | END 2022-08-03 09:46 | disposition home or self-care (01) | LOC: CHSCARD 09:46 | PROVIDERS: PCP Family Medicine; Visit Provider Family Medicine | DX: R06.00 Dyspnea, unspecified (principal); R94.2 Abnormal results of pulmonary function studies | CPT/HCPCS: 94060; 94726; 94729 ==

== ENCOUNTER 2023-01-17 14:03 | Outpatient (CLI) | payer MEDICARE, MEDICAID, SELFPAY ==
--- NOTE | ~2023-01-17 | XR_ITS ---
Clinical Indication: Chest pain PA and lateral views of the chest: Comparison: 07/14/2022 Findings: The lungs are clear, without evidence of focal consolidation or pleural effusion. Possible COPD. Cardiomediastinal silhouette is within normal limits. Bones and soft tissues are unremarkable. Impression: Possible COPD. Clear lungs. Reviewed, dictated and finalized at location M. Impression: Possible COPD. Clear lungs.
[2023-01-17 14:18] LABS: Basophils Absolute Auto 0.01 K/mm3 (0.00-0.10); Basophils Percent Auto 0.2 % (0.0-1.0); Eosinophils Absolute Auto 0.16 K/mm3 (0.02-0.50); Eosinophils Percent Auto 3.2 % (1.0-6.0); Hematocrit 38.5 % (40.0-54.0); Hemoglobin 13.1 g/dL (14.0-18.0); Immature Granulocyte Absolute 0.01 K/mm3 (0.00-0.00); Immature Granulocyte Percent A 0.2 % (0.0-0.0); Lymphocytes Absolute Auto 2.12 K/mm3 (1.10-4.50); Lymphocytes Percent Auto 42.6 % (18.0-42.0); Mean Corpuscular Hemoglobin 38.8 pg (27.0-31.0); Mean Corpuscular Volume 113.9 fL (78.0-102.0); Mean Platelet Volume 9.4 fl (8.7-11.0); Monocytes Absolute Auto 0.67 K/mm3 (0.10-0.90); Monocytes Percent Auto 13.5 % (2.0-11.0); Neutrophils Percent Auto 40.3 % (50.0-70.0); Platelet Count Result 105 K/mm3 (150-420); Red Blood Count 3.38 M/mm3 (4.70-6.10); Red Cell Distribution Width 14.1 % (11.6-14.4)
[2023-01-17 14:33] LABS: Alanine Aminotransferase 10 U/L (16-63); Albumin Level 2.7 g/dL (3.4-5.0); Alkaline Phosphatase 156 U/L (46-116); Ammonia 38 umol/L (11-32); Anion Gap 7 mmol/L (8-16); Aspartate Amino Transferase 35 U/L (15-37); Bilirubin,Total 0.7 mg/dL (0.00-1.00); Blood Urea Nitrogen 12 mg/dL (7-18); Calcium 8.8 mg/dL (8.5-10.1); Carbon Dioxide 30 mmol/L (21-32); Chloride 102 mmol/L (98-108); Estimated Glomerular Filt Rate > 60; Glucose 93 mg/dL (70-99); Osmolality Calculated 287 mOsm/kg (285-295); Potassium 4.1 mmol/L (3.5-5.1); Sodium 139 mmol/L (136-145); Total Protein 7.4 g/dL (6.4-8.2)
[2023-01-17 17:27] LABS: Amylase 79 U/L (25-115); Lipase 125 U/L (16-77)
== END 2023-01-17 14:04 | disposition home or self-care (01) ==
LOC: CHSLAB 14:05
PROVIDERS: PCP Family Medicine; Visit Provider Family Medicine
DX: K70.30 Alcoholic cirrhosis of liver without ascites (principal); D61.818 Other pancytopenia; R06.02 Shortness of breath; R91.8 Other nonspecific abnormal finding of lung field
CPT/HCPCS: 36415; 71046; 80053; 82140; 82150; 83690; 85025

== ENCOUNTER 2023-03-10 22:20 | Emergency (ER) | payer MEDICARE, MEDICAID, SELFPAY ==
--- NOTE | ~2023-03-10 | CT_ITS ---
EXAMINATION: CT brain wo con DATE: 03/10/2023 23:07 INDICATION: Acute mental status. Parkinson's. TECHNIQUE: Computed tomography (CT) of the head was performed without intravenous contrast. Sagittal and coronal reconstructions were performed. The mA was adjusted according to patient size. Iterative reconstruction technique was employed. The dose-length product was 681.00 mGy-cm. COMPARISON: Brain MR dated 06/10/2022 FINDINGS: No acute intracranial hemorrhage, acute infarction or abnormal extra axial fluid collection. Ventricl es are normal and symmetric. No mass/mass effect. Changes of bilateral intraocular lens replacement. The orbits, paranasal sinuses and mastoid air cells are normal. IMPRESSION: 1. No acute intracranial process. Reviewed, dictated and finalized at location A. RVISOR NUCLEAR MEDICINE
--- NOTE | ~2023-03-10 | XR_ITS ---
EXAMINATION: XR chest 1V portable DATE: 03/10/2023 23:07 INDICATION: Weakness TECHNIQUE: frontal view of the chest was obtained. COMPARISON: Chest radiograph dated 07/14/2022 FINDINGS: The lungs remain clear with no focal airspace opacities, pulmonary edema, pleural effusion or pneumot horax. The cardiomediastinal silhouette is within normal limits accounting for slight rightward rotat ion of the patient. Suture anchors at the left humeral head likely from prior rotator cuff repair. IMPRESSION: 1. No acute cardiopulmonary disease. Reviewed, dictated and finalized at location A. ATOLOGY SPECIALIST
[2023-03-10 22:29] VITALS: BP 140/98; PULSE 105; RESP 20; TEMP 37.1; O2SAT 93
--- NOTE | 2023-03-10 22:50 | ECG_ITS ---
Measurements Intervals [place] Rate: 102 P: 66 MT: 132 QRS: 74 QRSD: 86 T: 58 QT: 394 QTc: 515 Interpretive Statements SINUS TACHYCARDIA RIGHT ATRIAL ENLARGEMENT MINIMAL ST DEPRESSION [0.025+ mV ST DEPRESSION] ABNORMAL RHYTHM ECG NO PREVIOUS ECG AVAILABLE FOR COMPARISON Electronically Signed On 03-11-2023 14:19:53 LOG DRIVER by Jonathan Brown M.D.
[2023-03-10 22:53] VITALS: PULSE 105
--- NOTE | 2023-03-10 22:54 | PC.NURSE ---
pt with generalized weakness, bilat hand sky line yarder equal, 3/5, bilat pedal pushes/pulls equal, 4/5, smile symmetrical, reporting mild pain to l forearm where pt injured self previously, jhonny bandage in place
[2023-03-10 23:16] VITALS: BP 135/82; PULSE 99; RESP 20; O2SAT 95
[2023-03-10] MEDS: SODIUM CHLORIDE 0.9% IV 1,000 ML 999 ML IV CONT (23:21)
[2023-03-10 23:41] LABS: Basophils Absolute Auto 0.01 K/mm3 (0.00-0.10); Basophils Percent Auto 0.2 % (0.0-1.0); Eosinophils Absolute Auto 0.04 K/mm3 (0.02-0.50); Eosinophils Percent Auto 0.9 % (1.0-6.0); Hematocrit 34.3 % (40.0-54.0); Hemoglobin 11.7 g/dL (14.0-18.0); Immature Granulocyte Absolute 0.02 K/mm3 (0.00-0.00); Immature Granulocyte Percent A 0.4 % (0.0-0.0); Immature Platelet Fraction Pct 2.3 % (1.0-7.0); Lymphocytes Absolute Auto 1.71 K/mm3 (1.10-4.50); Lymphocytes Percent Auto 37.8 % (18.0-42.0); Mean Corpuscular HGB Conc 34.1 g/dL (32.0-36.0); Mean Corpuscular Hemoglobin 39.7 pg (27.0-31.0); Mean Corpuscular Volume 116.3 fL (78.0-102.0); Mean Platelet Volume 9.7 fl (8.7-11.0); Monocytes Absolute Auto 0.54 K/mm3 (0.10-0.90); Monocytes Percent Auto 11.9 % (2.0-11.0); Neutrophils Absolute Auto 2.2 K/mm3 (1.7-7.2); Neutrophils Percent Auto 48.8 % (50.0-70.0); Platelet Count Result 57 K/mm3 (150-420); Red Blood Count 2.95 M/mm3 (4.70-6.10); Red Cell Distribution Width 16.4 % (11.6-14.4); White Blood Count 4.5 K/mm3 (4.8-10.8)
[2023-03-10 23:50] LABS: Alanine Aminotransferase 32 U/L (16-63); Albumin Level 2.8 g/dL (3.4-5.0); Alkaline Phosphatase 129 U/L (46-116); Anion Gap 5 mmol/L (8-16); Aspartate Amino Transferase 123 U/L (15-37); Blood Urea Nitrogen 2 mg/dL (7-18); Calcium 8.2 mg/dL (8.5-10.1); Carbon Dioxide 30 mmol/L (21-32); Chloride 94 mmol/L (98-108); Estimated Glomerular Filt Rate > 60; Glucose 117 mg/dL (70-99); Osmolality Calculated 265 mOsm/kg (285-295); Potassium 3.1 mmol/L (3.5-5.1); Sodium 129 mmol/L (136-145); Total Protein 7.2 g/dL (6.4-8.2)
[2023-03-10 23:55] LABS: Lactic Acid Reflex 1.6 mmol/L (0.4-2.0)
[2023-03-10 23:57] VITALS: BP 144/96; PULSE 101; RESP 20; O2SAT 94
[2023-03-11 00:10] LABS: INR 1.2; Partial Thromboplastin Time 33.9 SEC (23.90-30.70); Prothrombin Time 13.2 Seconds (9.50-12.10)
[2023-03-11 00:11] LABS: Influenza A QL RT-PCR Negative (Negative); Influenza B QL RT-PCR Negative (Negative); RSV RNA, RT-PCR Negative (Negative); SARS-CoV-2 RNA PCR Positive (Negative)
--- NOTE | 2023-03-11 00:34 | ED.NEUROSD ---
HPI - Neuro Symptoms/Deficit General Chief Complaint: Suspected CVA Stated Complaint: fall, r sided weakness Time Seen by Provider: 03/10/23 22:22 Source: patient, family and EMS Mode of arrival: EMS Limitations: physical limitation History of Present Illness HPI Narrative: this is a 62-year-old male with history of Parkinson's disease that has been having weakness over the past couple of days had a fall yesterday with no injuries, patient with severe Parkinson's with tremors with some no fever no shortness of breath no chest pain no nausea vomiting or abdominal pain. Does have nasal congestion with some cough that is nonproductive. Onset (ago): day(s) Timing confirmed by: family member Related Data Home Medications Medication Instructions Recorded Confirmed carbidopa 25 mg-levodopa 100 mg 1 tablet PO QID 03/10/23 03/10/23 tablet (Sinemet) citalopram 40 mg tablet (Celexa) 40 mg PO BID 03/10/23 03/10/23 quetiapine 100 mg tablet (Seroquel) 100 mg PO BID 03/10/23 03/10/23 risperidone 4 mg tablet (Risperdal) 4 mg PO BID 03/10/23 03/10/23 trazodone 50 mg tablet 25 mg PO DAILY 03/10/23 03/10/23 Allergies Allergy/AdvReac Type Severity Reaction Status Date / Time Penicillins Allergy Intermediate Hives Verified 03/10/23 22:41 Review of Systems Review of Systems: All systems reviewed & are unremarkable except as noted in HPI and below PMFSH Past Medical History Medical History Allergies Asthma COPD (chronic obstructive pulmonary disease) GERD (gastroesophageal reflux disease) Liver cancer Migraine Surgical History Surgical History H/O hemorrhoidectomy Family History Family History Father Family history of chronic obstructive pulmonary disease Carcinoma of colon Mother Family history of chronic obstructive pulmonary disease Family history of coronary artery disease Social History Social History Smoking packs per day: 1 Smoking cigarettes per day: 20.0 Smoking status: Current every day smoker Tobacco type: cigarettes Alcohol intake: current Drinks per week: 4 Substance use type: marijuana Other substance usage details: former cocaine user Exam Const: General: cooperative, no acute distress, well developed, alert and awake HENMT: Head: normal to inspection Neck: Neck: normal visual inspection, full ROM, no lymphadenopathy and no meningeal signs Chest: Chest palpation & inspection: normal inspection of the chest and normal palpation of entire chest wall Resp: Effort & Inspection: normal respiratory effort and able to speak in complete sentences Cardio: Jugular venous distension: no JVD Palpation: normal PMI Rate: regular rate Rhythm: regular rhythm Skin: General skin exam: normal color and no rashes or lesions noted Neuro: General: oriented to person, oriented to place, oriented to time, Normal light touch and pain sensation and no focal motor deficits Extrem: General: normal to inspection, full ROM and capillary refill normal Course Course Emergency Course: All labs reviewed and no significant abnormalities CT scan of the chest performed which shows no acute intracranial abnormality patient's COVID is positive. Vital Signs Vital signs: Vital Signs Temperature 37.1 C 03/10/23 22:29 Pulse Rate 105 H 03/10/23 22:29 Respiratory Rate 20 03/10/23 22:29 Blood Pressure 140/98 H 03/10/23 22:29 Pulse Oximetry 93 03/10/23 22:29 Temperature 37.1 C 03/10/23 22:29 Pulse Rate 101 H 03/10/23 23:57 Respiratory Rate 20 03/10/23 23:57 Blood Pressure 144/96 H 03/10/23 23:57 Pulse Oximetry 94 03/10/23 23:57 Oxygen Delivery Room Air 03/10/23 23:57 MDM - Neuro Symptoms/Deficit Lab Data 03/10/23 23:19 03/10/23
[2023-03-11 00:41] VITALS: BP 132/77; PULSE 98; RESP 20; O2SAT 94
== END 2023-03-11 00:56 | disposition home or self-care (01) ==
PROVIDERS: Emergency Provider Emergency Medicine; PCP Family Medicine
DX: U07.1 COVID-19 (principal); G20.A1 Parkinson's disease without dyskinesia, without mention of fluctuations; J45.909 Unspecified asthma, uncomplicated; F17.210 Nicotine dependence, cigarettes, uncomplicated; Z79.899 Other long term (current) drug therapy; Z85.05 Personal history of malignant neoplasm of liver; W19.XXXA Unspecified fall, initial encounter
CPT/HCPCS: 36415; 70450; 71045; 80053; 83605; 85025; 85055; 85610; 85730; 87637; 93005; 96360; 99284; J7030

== ENCOUNTER 2023-03-12 10:55 | Emergency (ER) | payer MEDICARE, MEDICAID, SELFPAY ==
[2023-03-12] VITALS (16 sets, daily range): BP systolic 114–130; BP diastolic 76–98; PULSE 89–113; RESP 14–42; TEMP 37.1; O2SAT 89–97
--- NOTE | ~2023-03-12 | XR_ITS ---
EXAMINATION: XR chest 2V 03/12/2023 12:25 INDICATION: COPD. Weakness. PROCEDURE: 2 view chest COMPARISON: Comparison to multiple prior studies sequentially, with oldest reviewed study dated 09/09. FINDINGS: The lungs are clear. The cardiomediastinal silhouette is within normal limits. There are no pleural effusions. There is no pneumothorax suspected. IMPRESSION: 1: NO ACUTE CARDIOPULMONARY DISEASE. Reviewed, dictated and finalized at location A. INUITY EDITOR
--- NOTE | 2023-03-12 12:10 | ED.FALL ---
HPI - Fall General Chief Complaint: Fall Stated Complaint: fall Time Seen by Provider: 03/12/23 12:10 Source: patient and family Mode of arrival: ambulatory Limitations: no limitations History of Present Illness HPI Narrative: 62 years old white male who came to the emergency room by private car with his fiancee who is telling me the patient been feeling weak for 5-7 days, patient had a fall when he workup in the middle of the night to go to bathroom was dark black, lost his balance and fell. Did not hit the ground, caught himself by his left arm against a table causing some bruises at that area. He denies loss of consciousness or head injury his fiancee reports that patient have no control in his stool or urine, long hours sleep, generally weak, does not eat or drink, concern about the possibility of more urine or stool incontinence he. Patient denies any symptoms. He is telling me there is no difference between today and weeks ago. Patient uses walker, DNR, history of parkinsonism, liver cancer liver cirrhosis COPD dementia, patient does smoke cigarettes, marijuana and drink alcohol occasionally. Patient denies any weakness, tingling or numbness of the lower extremities. Patient's fiancee notice blood in his urine today. Patient denies any fever, chills, nausea, vomiting, urinary symptoms. Related Data Home Medications Medication Instructions Recorded Confirmed carbidopa 25 mg-levodopa 100 mg 1 tablet PO QID 03/10/23 03/10/23 tablet (Sinemet) citalopram 40 mg tablet (Celexa) 40 mg PO BID 03/10/23 03/10/23 quetiapine 100 mg tablet (Seroquel) 100 mg PO BID 03/10/23 03/10/23 risperidone 4 mg tablet (Risperdal) 4 mg PO BID 03/10/23 03/10/23 trazodone 50 mg tablet 25 mg PO DAILY 03/10/23 03/10/23 Allergies Allergy/AdvReac Type Severity Reaction Status Date / Time Penicillins Allergy Intermediate Hives Verified 03/10/23 22:41 Review of Systems Review of Systems: All systems reviewed & are unremarkable except as noted in HPI and below PMFSH Past Medical History Medical History Allergies Asthma COPD (chronic obstructive pulmonary disease) GERD (gastroesophageal reflux disease) Liver cancer Migraine Surgical History Surgical History H/O hemorrhoidectomy Family History Family History Father Family history of chronic obstructive pulmonary disease Carcinoma of colon Mother Family history of chronic obstructive pulmonary disease Family history of coronary artery disease Social History Social History Smoking packs per day: 1 Smoking cigarettes per day: 20.0 Smoking status: Current every day smoker Tobacco type: cigarettes Alcohol intake: current Drinks per week: 4 Substance use type: marijuana Other substance usage details: former cocaine user Exam Narrative: General appearance: Well-developed, well-nourished Skin: Normal color Head: Normocephalic, nontraumatic Eyes: Clear conjunctiva ENT: Oropharynx normal, ears normal, nose normal Neck: Supple, nontender Chest and respiratory: Airway patent, no respiratory distress, no accessory muscle use Heart: Regular rate/rhythm Abdomen: Soft, nontender, no organomegaly, quiet bowel sounds Vascular: Normal peripheral pulses, normal capillary refill. Musculoskeletal: Normal range of motion, nontender back Neurologic: Alert and oriented ?3, STONE CARRIAGE OPERATOR is normal as tested, no gross motor deficit, tremors of the hands. Patient does not know the name of the president otherwise oriented
--- NOTE | 2023-03-12 12:12 | ECG_ITS ---
Measurements Intervals [place] Rate: 93 P: 66 IA: 163 QRS: 69 QRSD: 81 T: 51 QT: 370 QTc: 462 Interpretive Statements SINUS RHYTHM LOW QRS VOLTAGE IN PRECORDIAL LEADS [QRS DEFLECTION < 1.0 mV IN CHEST LEADS] CANNOT RULE OUT aNTEROSEPTAL MYOCARDIAL INFARCTION , OF INDETERMINATE AGE [40+ ms Q WAVE IN V1-V4] ABNORMAL ECG COMPARED TO ECG 03/10/2023 23:13:18 SMALL R-WAVE IN V2 AND V3 ARE NO LONGER SEEN, LIKELY SLIGHTLY DIFFERENT PRECORDIAL LEAD POSITION Electronically Signed On 03-13-2023 8:56:38 POINTING MACHINE OPERATOR by Jonathan Brown M.D.
--- NOTE | 2023-03-12 12:29 | PC.NURSE ---
pt tot xray @1210 and back @1221
[2023-03-12] MEDS: SODIUM CHLORIDE 0.9% IV 1,000 ML 999 ML IV CONT (12:37)
[2023-03-12 12:58] LABS: INR 1.1; Prothrombin Time 15.3 Seconds (11.1-14.7)
[2023-03-12 12:59] LABS: Lactic Acid Reflex 1.8 mmol/L (0.7-2.0); Partial Thromboplastin Time 33.4 SECONDS (22.3-36.8)
[2023-03-12 13:01] LABS: Basophils Percent Auto 0.2 % (0.2-1.2); Eosinophils Percent Auto 0.2 % (0-4.4); Hematocrit 32.9 % (42.0-52.0); Hemoglobin 11.1 g/dL (14.0-18.0); Immature Granulocyte Absolute 0.02 K/mm3 (0.00-0.031); Immature Granulocyte Percent A 0.4 % (0-0.5); Immature Platelet Fraction Pct 3.2 % (0.9-11.2); Lymphocytes Absolute Auto 1.56 K/mm3 (0.9-3.2); Lymphocytes Percent Auto 35.1 % (18.3-44.2); Mean Corpuscular HGB Conc 33.7 g/dl (32-36); Mean Corpuscular Hemoglobin 39.6 pg (26-34); Mean Corpuscular Volume 117.5 fl (80-100); Mean Platelet Volume 10.5 fl (7.4-10.4); Monocytes Absolute Auto 0.5 K/mm3 (0.1-0.6); Monocytes Percent Auto 11.9 % (2.6-8.5); Neutrophils Absolute Auto 2.3 K/mm3 (1.3-6.7); Neutrophils Percent Auto 52.2 % (45.5-73.1); Platelet Count Result 59 k/mm3 (150-375); Red Cell Distribution Width 16.6 % (11.5-14.5); White Blood Count 4.5 K/mm3 (4.5-10.0)
--- NOTE | 2023-03-12 13:01 | PC.NURSE ---
pt requested to hold off on a straight cath because they are not incontinent. IV fluids are running and pt was notified to call nurse as soon as they have an urge to void.
[2023-03-12 13:06] LABS: Alanine Aminotransferase 45 U/L (6-50); Albumin Level 2.9 g/dL (3.5-5.1); Alkaline Phosphatase 129 U/L (38-126); Anion Gap 3 mmol/L (8-16); Aspartate Amino Transferase 167 U/L (17-59); Bilirubin,Total 1.3 mg/dL (0.2-1.3); Blood Urea Nitrogen 3 mg/dL (9-20); CRP 2.1 mg/dL (<1.0); Carbon Dioxide 28 mmol/L (22-30); Chloride 102 mmol/L (98-107); Estimated CRCL calculation 131 ml/min; Estimated Glomerular Filt Rate > 60; Glucose 110 mg/dL (65-110); Potassium 3.6 mmol/L (3.4-5.0); Sodium 133 mmol/L (137-145)
[2023-03-12 13:19] LABS: Anisocytosis 1+ (NORMAL); Hypochromasia 1+ (NORMAL); Platelet Estimate Decreased (Adequate)
[2023-03-12 13:20] LABS: Macrocytosis 1+ (NORMAL); Schistocytes None Seen (NORMAL)
[2023-03-12 13:38] LABS: Appearance Urine Cloudy (Clear); Bacteria Urine None Seen /hpf; Bilirubin Urine 2+ (Negative); Blood Urine 3+ (Negative); Color Urine Dark Yellow (Yellow); Glucose Urine UA Negative (Negative); Ketones Urine Trace mg/dL (Negative); Leukocyte Esterase Ur Trace LEU/UL (Negative); Nitrate Urine Negative (Negative); Protein Urine Trace mg/dL (Negative); RBC Urine >100 /hpf (0-2); Specific Grav Ur 1.015 (1.001-1.035); Squamous Epithelial Cell Urine Occasional /hpf (Few); pH Urine 6.5 (5.0-9.0)
[2023-03-12 13:39] LABS: Add Urine Microscopic? YES
[2023-03-12 13:47] LABS: Amphetamine Screen Urine Negative (Negative); Barbiturate Screen Urine Negative (Negative); Benzodiazepines Screen Urine Negative (Negative); Cannabinoid Screen Urine Positive (Negative); Cocaine Screen Urine Negative (Negative); Methadone Screen Urine Negative (Negative); Opiate Screen Urine Negative (Negative); Phencyclidine Screen Urine Negative (Negative)
[2023-03-16 03:40] LABS: Methyl Alcohol Level None Detected (None Detected)
== END 2023-03-12 15:12 | disposition home or self-care (01) ==
PROVIDERS: Emergency Provider Emergency Medicine; PCP Family Medicine
DX: U07.1 COVID-19 (principal); R31.9 Hematuria, unspecified; K74.60 Unspecified cirrhosis of liver; J44.9 Chronic obstructive pulmonary disease, unspecified; F03.90 Unspecified dementia, unspecified severity, without behavioral disturbance, psychotic disturbance, mood disturbance, and anxiety; G20.A1 Parkinson's disease without dyskinesia, without mention of fluctuations; F17.210 Nicotine dependence, cigarettes, uncomplicated; Z66 Do not resuscitate; Z85.05 Personal history of malignant neoplasm of liver; Z79.899 Other long term (current) drug therapy; W18.39XA Other fall on same level, initial encounter
CPT/HCPCS: 36415; 71046; 80053; 80307; 81001; 83605; 84600; 85025; 85055; 85610; 85730; 86140; 87040; 87086; 93005; 96361; 96365; 99284; J0696; J7030

== ENCOUNTER 2023-11-18 13:56 | Outpatient (CLI) | payer MEDICARE, MEDICAID, SELFPAY ==
--- NOTE | ~2023-11-18 | XR_ITS ---
EXAMINATION: XR ribs LT 2V w CXR 2V DATE: 11/18/2023 14:12 INDICATION: Left chest pain. TECHNIQUE: Frontal and lateral views of the chest on 3 radiographs and 2 views on 3 radiographs of th e left ribs were obtained. COMPARISON: Chest 2 views 03/12/2023, CT abdomen and pelvis 07/31/2021 FINDINGS: CHEST TWO VIEWS: There is mild atelectasis in left midlung zone. No pleural effusion or pneumothorax. The heart size is normal. There are suture anchors in left humeral head. There are old healed right rib fractures. LEFT RIBS: There are fracture deformities of left ninth and 10th ribs. IMPRESSION: 1. Age-indeterminate fracture deformities of left ninth and 10th ribs, new from 07/31/21. Reviewed, dictated and finalized at location A.
== END 2023-11-18 13:57 | disposition home or self-care (01) ==
LOC: CHSIMG 13:58
PROVIDERS: PCP Family Medicine; Visit Provider Family Medicine
DX: R07.89 Other chest pain (principal); M89.9 Disorder of bone, unspecified
CPT/HCPCS: 71046; 71100

== ENCOUNTER 2024-05-04 16:13 | Outpatient (CLI) | payer MEDICARE, MEDICAID, SELFPAY ==
--- OUTSIDE RECORDS SUMMARY | 2024-05-04 16:17 | XMS_ITS ---
Author Organization [facility] Health Address [address] [address] Care Team Providers Care Electric Relay Tester Name Role Phone Bayron Mg MD Primary Care Provider [phone] Active Problems Problem Noted Date Diagnosed Date HCC (hepatocellular carcinoma) 12/29/2021 Encounter for pre-transplant evaluation for liver transplant 09/16/2021 Overview (02/15/2022): Images from the original note were not included. Olivier Street 60 HCC/Hep C Dr. Dunne Body mass index is 24.91 kg/m . MELD-Na score: 11 at 12/29/2021 10:59 AM MELD score: 11 at 12/29/2021 10:59 AM Calculated from: Serum Creatinine: 0.53 mg/dL (Using min of 1 mg/dL) at 12/29/2021 10:59 AM Serum Sodium: 139 mmol/L (Using max of 137 mmol/L) at 12/29/2021 10:59 AM Total Bilirubin: 1.4 mg/dL at 12/29/2021 10:59 AM INR(ratio): 1.4 at 12/29/2021 10:59 AM Age: 61 years 11/02/21 13:13 11/02/21 13:18 ABO Rh A POS A POS Antibody Screen NEG 11/02/21 13:13 Ferritin 551 (H) Iron 241 (H) Transferrin 193 11/02/21 13:13 Total Cholesterol (NMR) 100 Triglycerides 63 HDL 28 (L) LDL Calculated 59 11/02/21 13:13 Alpha-Fetoprotein Tumor Marker 3.0 PSA Total 0.3 11/02/21 13:13 Osmolality Calculated 285 PEth 16:0/18.1 (POPEth) <10 PEth 16:0/18.2 (PLPEth) <10 11/02/21 13:13 Hemoglobin A1c 4.3 Estimated Average Glucose 77 PTH Intact 40.1 11/02/21 QuantiFERON-TB Gold Plus Positive ! QuantiFERON Plus TB1 Minus NIL 0.74 (H) QuantiFERON Plus TB2 Minus NIL 0.41 (H) QuantiFERON Mitogen Minus NIL >10.00 QuantiFERON NIL 0.11 Treponema pallidum Antibody Non-reactive 11/02/21 Cytomegalovirus Antibody IgG 6.80 Teresita-Zuniga Virus Antibody IgG Viral Capsid Antigen 36.8 (H) Measles (Rubeola) Antibody IgG >300.0 Mumps Virus Antibody IgG >300.0 Rubella Antibody IgG 280.0 Varicella zoster Virus Antibody IgG 3726.0 11/02/21 13:13 Hepatitis C Antibody Reactive ! Hepatitis C RNA PCR, Interp Not detected 11/02/21 13:13 Strongyloides Antibody IgG 1.2 (H) Toxoplasma Antibody IgG <3.0 11/02/21 13:13 11/02/21 13:18 Ethanol <10 Ethanol Calculated <0.010 Cotinine 753 3-Hydroxy Cotinine 159 Nicotine 43 Alcohol Urine Screen Negative Amphetamines Urine Negative Benzodiazepines Urine Negative Cannabinoids Urine Positive Cocaine Urine Negative Methadone Screen Urine Negative Opiates Urine Negative Oxycodone Urine Negative Barbiturates Urine Negative Phencyclidine Urine Negative Drug Panel 9A Screen Only Comments See Note MDMA Urine Negative Propoxyphene Screen Urine Negative CXR 12/29/21 The lungs are clear of consolidation. No pleural effusion or pneumothorax. Heart size and mediastinal contours are normal. No acute osseous abnormality. Suture anchors are noted in the left humeral head. IMPRESSION: No acute cardiopulmonary process. CHEST CT CT abd 11/26/21 1.2.6 x 4.3 x 4.5 cm area of hypodensity within hepatic segment 6/7 corresponding with post thermal ablation changes. There are areas of arterial hyperenhancement without washout seen superiorly inferiorly about the posttreatment cavity which may represent posttreatment hyperemia. LR TR equivocal. Triphasic MRI examination of the liver can be helpful to characterize the area of enhancement 2.Hepatic cirrhosis with sequela of portal hypertension including splenic, esophageal, and gastric varices. > Dictated by Ravinder Sandra MD (head resident). PT 10/09/21 Liver Frailty Score Frailty Index Value: 6.04 (10/09/21 1000) Assessment: Olivier comes into the clinic today for pre-liver transplant evaluation. He has generalized weakness, decreased endurance, decreased balance, gait dysfunction, and is fall risk. He scored 6.04 on the liver frailty index, placing him in the frail category. He ambulated 500 feet in the 6MWT (with comparative data 2346 feet for his age group). He would benefit from home health PT to address the above impairments, improve quality of life, and decrease caregiver burden. Panorex 12/29/2021 Patient is edentulous. No acute mandibular fracture is identified. Both temporomandibular joints are intact. No periapical abscess is present. IMPRESSION: No evidence of periapical abscess. Needs: ID consult +new [facility] Department SW worked to arrange PT through [facility] locally to his home. His per session out of pocket cost=$40/session Patient reports he cannot afford this as he is on a fixed income 12/14/21 Patient reports down to 1.5 ppd from 3 ppd 10.5 packs per week x 4.56 = 47.88 / week $192 per month ID Consult 12/29/21 ASSESSMENT AND Plan 1. 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 Patient has chronic productive cough and no recent work up for active TB. CXR and sputum AFB smear (and culture x3) ordered. - If AFB smears are negative and CXR normal, we will consider treating for LTBI. Home meds reviewed and possible drug interactions checked. The best short course therapy for LTBI is weekly treatment with isoniazid and rifapentine for 12 weeks. However, multiple psychiatry meds (risperidone, trazodone, citalopram, quetiapine) have interactions with rifapentine and the psych meds have to be changed or dose adjusted when LTBI treatment is started. Patient advised to see his psychiatrist as soon as possible. The second option is to use isoniazid alone for 6-9 months. There is some risk of serotonin syndrome when isoniazid is used in combination with trazodone or citalopram. Psych eval important to consider changing at least trazodone and citalopram to other meds which do not interact with isoniazid. 2. Smoking. Has cut down the number of cigarettes and has a plan to quit smoking. Leana Maldonado, M.D., PhD., [facility] Visit with Dr. Javed 12/29/21 Patient Instructions Given at Discharge: Start lactulose (liquid). Take 5 cc twice daily and increase/decrease to achieve 2-3 soft bowel moments daily. This is to help with confusion I am prescribing rifaximin which is also to help confusion. Will request a prior authorization. Stop smoking. Nicotine patch prescribed. Do not take nicotine patch AND smoke. Physical therapy recommended Continue transplant workup. An appointment was scheduled for him to see Dr. Dunne in followup in 6 months, or sooner if needed. spoke to patient 01/28/22 and 02/11/22-- still smoking 1 ppd Viral hepatitis C without hepatic coma 6 Cirrhosis of liver 09/04/2015 Current Oncology Plans No current plan information found. Past Plans No past plan information found. Radiation Treatments * No radiation treatments are documented for this patient in [facility]. Treatments may have been administered in another system. Lifetime Dose Tracking * Chemical Lifetime Dose Automatic Entry Manual Entr y Dose Length Product 8,716 mGy-cm 8,716 mGy-cm 0 mGy-cm
--- OUTSIDE RECORDS SUMMARY | 2024-05-04 16:17 | XMS_ITS | Encounter Summary ---
Author Organization [facility] Address Formerly [facility] [place] [address] Care Team Providers Care Dianetic Counselor Name Role Phone Bayron Mg MD Primary Care Provider [phone] Encounter Details Date Type Department Care Team (Late st Contact Info) Description 09/02/2018 Abstract SFL CONVERSION [address] [place] [address] , Generic Conversion, Social History Tobacco Use Types Packs/Day Years Used Date Smoking Tobacco: Every Day Cigarettes 1.5 53.1 Started: 1970 Smokeless Tobacco: Never Alcohol Use Standard Drinks/Week Comments Yes 6.7 (1 standard drink = 0.6 oz p ure alcohol) AUDIT-C Answer Date Recorded Frequency of Alcohol Consumption 4 or more times a week 08/07/2018 Average Number of Drinks 5 or 6 019 Frequency of Binge Drinking Daily or almost nyla y 08/07/2018 Sex and Gender Information Value Date Recorded Sex Assigned at Male 08/07/2018 11:48 AM CDT Legal Sex Male 7:12 PM CDT Gender Identity Male 08/07/2018 11:48 AM CDT Sexual Orientation Not on file documented as of this encounter Plan of Treatment Not on file documented as of this encounter Visit Diagnoses Not on filedocumented in this encounter Care Teams Dianetic Counselor Relationship Specialty Start Date End Date Bayron Mg MD [address] [place] [address] PCP - General FAMILY PRACTICE 08/01/18 documented as of this encounter
--- OUTSIDE RECORDS SUMMARY | 2024-05-04 16:17 | XMS_ITS | Clinical Summary ---
Author Organization [facility] Address [address] [place] [address] Care Team Providers Care Broach Grinder Name Role Phone Bayron Mg MD Primary Care Provider [phone] Source Comments [facility] [employer],non-owned Affiliates and Associated Physician Practices is amultiple site organization consisting of ambulatory clinics and hospital sitesin [place], [place], [place] and [place]. This disclosure is being madepursuant to the Care Everywhere program and may not contain all information available regarding this patient. Last updated 17.[facility] [employer] Allergies Active Allergy Reactions Criticality Noted Date Comments Penicillins Urticaria Medium 09/02/2021 Medications * Be aware that medications may not be up to date on this document. Alwaysverify current medications with the patient. Medication Sig Dispensed Refills Start Date End Date Status QUEtiapine (SEROQUEL) 50 MG tablet Take 1 (one) tablet by mouth 2 times daily Active traZODone (DESYREL) 50 MG tablet Take 1 (one) tablet by mouth at bedtime Active Albuterol Sulfate 108 (90 Base) MCG/ACT Inhale 2 puffs by mouth 4 times daily Active carbidopa-levodopa (Sinemet) 10-100 MG tablet Take 1 (one) tablet by mouth once daily 10/22/2021 Active fluticasone hfa 110 (Flovent HFA 110) 110 MCG/ACT inhaler Inhale 2 (two) puffs by mouth 2 times daily Active albuterol HFA (Proventil; Ventolin; Proair) 108 (90 Base) MCG/ACT inhaler Inhale 2 (two) puffs by mouth as needed 01/21/2021 Active citalopram (CeleXA) 20 MG tablet Take 2 (two) tablets by mouth once daily 01/14/2021 Active risperiDONE (RisperDAL) 3 MG tablet Take 4 mg by mouth once daily 01/14/2021 Active nicotine (QC Nicotine Transdermal System) 21 MG/24HR patchIndications:Luis otine Dependence Apply 1 patch to daily X 6 weeks, then apply 14 mg patch daily X 2 weeks (#14 patches), then 7 mg patch daily X 2 weeks (#14 patches) Reasons: Nicotine Addiction 42 patch 12/29/2021 Active Additional Information Patient not taking.Reported on 01/13/2024 lactulose (Chronulac) 10 GM/15ML solution Take 5 cc twice daily and titrate to achieve 2-3 soft bowel movements daily. 946 mL 11 12/29/2021 Active Active Problems Problem Noted Date Diagnosed Date [...] varices. > Dictated by Ravinder Sandra MD (resident director). PT 10/09/21 Liver Frailty Score Frailty Index [...] evidence of periapical abscess. Needs: ID consult +[facility] Department SW worked to arrange PT through [facility] locally to his home. His per [...] has a plan to quit smoking. Leana Okeefe M.D., PhD., [facility] Visit with Dr. Javed 12/29/21 Patient Instructions [...] hepatic coma 6 Cirrhosis of liver 09/04/2015 Encounters Date Type Department Care Team Description 04/18/2024 11:00 AM [employer]REIGHT [employer] SALES LEADER Office Visit [facility] RAD CSM [address] [place] [address] Isabel Holliday APRN-CNP HCC (hepatocellular carcinoma) (HCC) (Primary Dx) 04/18/2024 10:30 AM FRE[employer] FLOW SALES LEADER - 04/18/2024 11:59 PM [facility] Hospital Encounter [facility] CAT SCAN [address] [place] [address] Isabel Holliday APRN-CNP Discharge Disposition: Home or Self Care 04/18/2024 10:00 AM [employer] SALES LEADER - 04/18/2024 10:29 AM [facility] Hospital Encounter [facility] LAB OP DRAW STATION [address] [place] [address] Isabel Holliday APRN-CNP Discharge Disposition: Home or Self Care from Last 3 Months Family History Medical History Relation Name Comments CVA Father Other Mother CAD (Coronary Artery Disease) Sister 1 CAD (Coronary Artery Disease) Sister 2 Relation Name Status Comments Brother 1 Alive Brother 2 Alive Father Mother Sister 1 Sister 2 Alive Social History Tobacco Use Types Packs/Day Years Used Date Smoking Tobacco: Every Day Cigarettes 0.5 50 Smokeless Tobacco: Never Tobacco Cessation:Ready to Q uit: Not Asked; Counseling Given: Not Answered Comments:states he understands he needs to stop Alcohol Use Standard Drinks/Week Comments Yes 3 (1 standard drink = 0.6 oz pur e alcohol) BEER, OCCASIONAL PHQ-2 Answer Date Recorded PHQ2 TOTAL SCORE 3 12/29/2021 Sex and Gender Information Value Date Recorded Sex Assigned at Not on file Gender Identity Not on file Sexual Orientation Not on file Last Filed Vital Signs Vital Sign Reading Time Taken Comments Blood Pressure 148/85 04/18/2024 11:27 AM [employer] SALES LEADER Pulse 99 04/18/2024 11:27 AM [employer] SALES LEADER Temperature 36.2 C (97.2 F) 04/18/2024 11:27 AM [employer] SALES LEADER Respiratory Rate 14 04/18/2024 11:27 AM [employer]OW SALES LEADER Oxygen Saturation 95% 04/18/2024 11:27 AM [employer] SALES LEADER Inhaled Oxygen Concentration - - Weight 86.2 kg (190 lb) 04/18/2024 11:27 AM [employer]OW SALES LEADER Height 180.3 cm (5' 10.98 ) 04/18/2024 11:27 AM [employer] SALES LEADER Body Mass Index 26.51 04/18/2024 11:27 AM [employer] SALES LEADER Plan of Treatment Upcoming Encounters Date Type Department Care Team (Late st Contact Info) Description 07/19/2024 11:30 AM CDT Appointment [facility] LAB OP DRAW STATION [address] [place] [address] 07/19/2024 12:30 PM CDT Appointment [facility] MRI [address] [place] [address] Antwon Marmolejo MD [address] [place] [address] 07/25/2024 10:30 AM CDT Office Visit [facility] RAD CSM [address] [place] [address] Isabel Holliday, STOCK CHECKER-WIRELESS SALES CONSULTANT [address] FIRST [place] [address] Health Maintenance Due Date Last Done Comments COLOGUARD (AGES 45-75) - COLON CA SCREENING 1961 COLON MONITORING 1961 COLONOSCOPY - COLON CA SCREENING 1961 CT COLONOGRAPHY - COLON CA SCREENING 1961 Colorectal Cancer Screening 1961 FIT - COLON CA SCREENING 1961 FLEX SIG - COLON CA SCREENING 1961 HIV SCREENING 1976 DTAP/TDAP/TD VACCINES (1 - Tdap) 1980 PNEUMOCOCCAL VACCINE 50+ (1 of 2 - PCV) 1980 LUNG CANCER SCREENING 11/28/2011 ZOSTER VACCINE (1 of 2) 11/28/2011 HEPATITIS B VACCINE (1 of 3 - Risk 3-dose series) 2021 Respiratory Syncytial Virus (RSV) Vaccine Pt: or over 60 yrs (1 - Risk 60-74 years 1-dose series) 2021 COVID-19 VACCINE (1 - 2023- season) 2023 INFLUENZA VACCINE (#1) 2023 DEPRESSION SCREENING 03/28/2024 12/29/2021 MEDICARE AWV CALENDAR YEAR 2024 LIPID TESTING 11/02/2026 11/02/2021 SCREENING FOR DIABETES 04/18/2027 , 07/13/2023, 04/06/2023, Additional history exists HEPATITIS C SCREENING Completed 07/08/2022 , 03/30/2022, 01/28/2022, Additional history exists HIB VACCINE Aged Out No longer eligi ble based on patient's age to complete this topic HPV VACCINE Aged Out No longer eligi ble based on patient's age to complete this topic MENINGOCOCCAL (Group B) VACCINE Aged Out No longer eligible based on patient's age to complete this topic MENINGOCOCCAL VACCINE Aged Out No domitila erasto eligible based on patient's age to complete this topic Goals Goal Patient Goal Type Associated Problems Recent Progress Patient-Stated? Author Medication Management General On track( 025 11:32 AM [employer] SALES LEADER) No Carlton Castellanos, RN Note: Expected end date: Interventions: Take all medications as prescribed Let your doctor know right away about any changes in your medications Make sure to request a refill of your medication at least one week prior to your last dose Procedures Procedure Name Priority Date/Time Associated Diagnosis Comments PT-INR [facility] Routine 04/18/2024 11:21 AM [employer] SALES LEADER HCC (hepatocellular carcinoma) (HCC) COMPREHENSIVE METABOLIC PANEL Routine 04/18/2024 11:21 AM [employer] SALES LEADER HCC (hepatocellular carcinoma) (HCC) CBC W AUTO DIFFERENTIAL Routine 04/18/2024 11:21 AM [employer] SALES LEADER HCC (hepatocellular carcinoma) (HCC) ALPHA FETOPROTEIN BLOOD TUMOR MARKER Routine 04/18/2024 11:21 AM [employer] SALES LEADER HCC (hepatocellular carcinoma) (HCC) CT ABDOMEN MULTI PHASE W CONT Routine 04/18/2024 11:00 AM [employer] SALES LEADER HCC (hepatocellular carcinoma) (HCC) CREATININE - POCT INTERFACED Routine 04/18/2024 10:38 AM [employer] SALES LEADER LIPID PROFILE Routine 11/02/2021 1:13 PM CDT Encounter for pre-transplant evaluation for liver transplant Chronic hepatitis C without hepatic coma (HCC) Other cirrhosis of liver (HCC) HCC (hepatocellular carcinoma) (HCC) Chronic obstructive pulmonary disease, unspecified COPD type (HCC) HEPATITIS C ANTIBODY Routine 11/02/2021 1:13 PM CDT Encounter for pre-transplant evaluation for liver transplant Chronic hepatitis C without hepatic coma (HCC) Other cirrhosis of liver (HCC) HCC (hepatocellular carcinoma) (HCC) Chronic obstructive pulmonary disease, unspecified COPD type (HCC) from Last 3 Months or Most Recently Relevant to Health Maintenance Results * (ABNORMAL) PT-INR [facility] (04/18/2024 11:21 AM [facility]) PT 15.8(H) 12.1 - 14.8 Seconds 04/18/2024 12:06 PM [facility] INR 1.3 See Comment 04/18/2024 12:06 PM [facility] Comment:The suggested therap eutic range for standard coumadin (warfarin) therapy is an INR of 2.0-3.0. For high-risk patients (Mechanical Mitral Valve Prosthesis, etc.), the suggested prophylactic therapeutic range is an INR of 2.5-3.5. Blood BLOOD SPECIMEN / Unknown Lab Venipuncture / Unknown 04/18/2024 11:21 AM [employer] SALES LEADER 04/18/2024 11:40 AM [employer] SALES LEADER [facility] - COAGULATIO N ORDERABLES Performing Organization Address City/[facility]/ZIP Co de Phone Number [address] [address], [facility] [phone] * ALPHA FETOPROTEIN BLOOD TUMOR MARKER (04/18/2024 11:21 AM [employer]OW SALES LEADER) [facility] Alpha-Fetoprote in Tumor Marker 2.8 <=8.3 ng/mL 04/18/2024 12:31 PM [facility] Comment: AFP values will vary depending on testing procedure used. Results are not comparable across different methods. AFP values obtained by [facility] using an [employer] Alinity Immunoassay. Blood BLOOD SPECIMEN / Unknown Lab Venipuncture / Unknown 04/18/2024 11:21 AM [employer] SALES LEADER 04/18/2024 11:44 AM [employer] SALES LEADER Isabel [facility] - CHEMISTRY ORDERABLES Performing Organization Address [facility] Co de Phone Number [address] [address], [facility] [phone] * (ABNORMAL) CBC WITH DIFFERENTIAL (04/18/2024 11:21 AM F[employer]OW SALES LEADER) [facility] WBC 3.1(L) 4.0 - 10.7 x10E9/L 04/18/2024 12:21 PM [facility] RBC Count 3.09(L) 4.30 - 5.80 x10E12/L 04/18/2024 12:21 PM [facility] Hemoglobin 12.7(L) 13.3 - 17.5 g/dL 04/18/2024 12:21 PM [facility] Hematocrit 35.5(L) 38.7 - 51.1 % 04/18/2024 12:21 PM [facility] MCV 114.9(H) 80.0 - 98.0 fL 04/18/2024 12:21 PM [facility] MCH 41.1(H) 26.7 - 33.6 pg 04/18/2024 12:21 PM [facility] MCHC 35.8 31.7 - 36.3 g/dL 04/18/2024 12:21 PM [facility] RDW-CV 14.7 11.3 - 14.8 % 04/18/2024 12:21 PM [facility] Platelet Count 68(L) 150 - 420 x10E9/L 04/18/2024 12:21 PM [facility] MPV 10.9 7.8 - 11.4 fL 04/18/2024 12:21 PM [facility] Neutrophil % 48.5 41.0 - 74.0 % 04/18/2024 12:21 PM [facility] Lymphocyte % 35.7 17.0 - 47.0 % 04/18/2024 12:21 PM [facility] Monocyte % 13.6(H) 3.0 - 11.0 % 04/18/2024 12:21 PM [facility] Eosinophil % 1.6 0.0 - 7.0 % 04/18/2024 12:21 PM [facility] Basophil % 0.3 0.0 - 1.6 % 04/18/2024 12:21 PM [facility] Immature Granulocytes % 0.3 0.0 - 1.0 % 04/18/2024 12:21 PM [facility] Neutrophil Absolute 1.49(L) 1.60 - 7.50 x10E9/L 04/18/2024 12:21 PM [facility] Lymphocyte Absolute 1.10 1.00 - 4.40 x10E9/L 04/18/2024 12:21 PM [facility] Monocyte Absolute 0.42 0.15 - 1.00 x10E9/L 04/18/2024 12:21 PM [facility] Eosinophil Absolute 0.05 0.00 - 0.60 x10E9/L 04/18/2024 12:21 PM [facility] Basophil Absolute 0.01 0.00 - 0.13 x10E9/L 04/18/2024 12:21 PM [facility] Blood BLOOD SPECIMEN / Unknown Lab Venipuncture / Unknown 04/18/2024 11:21 AM [employer] SALES LEADER 04/18/2024 11:44 AM [employer]OW SALES LEADER Isabel Holliday STOCK CHECKER-WIRELESS SALES CONSULTANT LAB - HEMATOLOGY ORDERABLES [facility] [address] [place] [address], [facility] [phone] * (ABNORMAL) COMPREHENSIVE METABOLIC PANEL (04/18/2024 11:21 AM F[employer] SALES LEADER) BUN 9 7 - 26 mg/dL 04/18/2024 12:16 PM [facility] Creatinine 0.69(L) 0.71 - 1.16 mg/dL 04/18/2024 12:16 PM [facility] Sodium 134(L) 136 - 145 mmol/L 04/18/2024 12:16 PM [facility] Potassium 3.8 3.5 - 4.5 mmol/L 04/18/2024 12:16 PM [facility] Chloride 100 98 - 107 mmol/L 04/18/2024 12:16 PM [facility] CO2 23 22 - 29 mmol/L 04/18/2024 12:16 PM [facility] Glucose 115(H) 70 - 99 mg/dL 04/18/2024 12:16 PM [facility] Calcium 8.9 8.4 - 10.2 mg/dL 04/18/2024 12:16 PM [facility] Protein Total 7.2 6.0 - 8.3 g/dL 04/18/2024 12:16 PM [facility] Albumin 3.2(L) 3.4 - 5.0 g/dL 04/18/2024 12:16 PM [facility] Bilirubin Total 1.0 0.2 - 1.2 mg/dL 04/18/2024 12:16 PM [facility] Alkaline Phosphatase 190(H) 40 - 150 U/L 04/18/2024 12:16 PM [facility] ALT 16 5 - 55 U/L 04/18/2024 12:16 PM [facility] AST 53(H) 5 - 34 U/L 04/18/2024 12:16 PM [facility] Anion Gap 11 6 - 16 04/18/2024 12:16 PM [facility] BUN/Creatinine Ratio 13 7 - 23 04/18/2024 12:16 PM [facility] Osmolality Calculated 278 275 - 295 mOsm/kg 04/18/2024 12:16 PM [facility] Albumin/Globulin Ratio 0.8(L) 1.1 - 2.3 04/18/2024 12:16 PM [facility] eGFR by CKD-EPI >90 >=90 mL/min/1.7 3 m2 04/18/2024 12:16 PM [facility] Blood BLOOD SPECIMEN / Unknown Lab Venipuncture / Unknown 04/18/2024 11:21 AM [employer] SALES LEADER 04/18/2024 11:44 AM F[employer]OW SALES LEADER Isabel Holliday STOCK CHECKER-WIRELESS SALES CONSULTANT LAB - CHEMISTRY ORDERABLES [facility] [address] [place] [address], [facility] [phone] * CT Abdomen Multi Phase W Cont (04/18/2024 11:00 AM F[employer]OW SALES LEADER) Anatomical Region Laterality Modality Abdomen Computed Tomogra phy 04/18/2024 1:57 PM [employer] SALES LEADER Impressions 04/18/2024 2:03 PM [employer]OW SALES LEADER Impression: 1.Nonviable treatment cavity in segment 6/7 without suspicious features (LR TR nonviable). 2.Hepatic cirrhosis with sequela of portal hypertension. 3.No new suspicious observations. > Interpreting Provider: Stas Shipley MD on 04/18/2024 2:03 PM Narrative 04/18/2024 2:03 PM F[employer]OW SALES LEADER PROCEDURE: CT ABDOMEN MULTI PHASE W CONT DATE/TIME OF EXAM: 04/18/2024 11:01 AM CLINICAL INFORMATION: None relevant/not provided if blank. Indication: C22.0: HCC (hepatocellular carcinoma) (HCC) Additional History: COMPARISON: 01/11/2024. TECHNIQUE: CT of the abdomen was performed utilizing liver multiphasic protocol. CT dose reduction technique was used, including Automated Exposure Control. IV CONTRAST: IOPAMIDOL 76 % IV SOLN:150 mL FINDINGS: Lower Chest: Normal. Hepatobiliary system Liver morphology: The liver is shrunken and has a nodular surface, consistent with hepatic cirrhosis. Varices: Multiple upper abdominal collaterals including a splenorenal varix. Spleen: Normal. Ascites: None. Focal liver observations Treatment cavity in segment 6/7 (series 14 image 84) without enhancement. (LR TR nonviable). No new suspicious arterially enhancing observations identified. Hepatic vasculature Portal and hepatic veins: Normal and patent. Arterial anatomy: Conventional. Gallbladder and bile ducts Gallbladder: Normal. Bile ducts: Nondilated. Retroperitoneum Pancreas: Normal. Adrenals: Normal. Kidneys: Nonobstructing right nephrolithiasis. Kidneys otherwise within normal limits. Lymph nodes: No lymphadenopathy. Gastrointestinal: The stomach and visualized loops of large and small bowel are unremarkable. Normal appendix. Bones: Bone windows demonstrate no suspicious lytic or blastic lesions. Degenerative changes are seen in the spine. Soft tissues: Normal. Procedure Note Stas Shipley MD - 04/18/2024 PROCEDURE: CT ABDOMEN MULTI PHASE W CONT DATE/TIME OF EXAM: 04/18/2024 11:01 AM CLINICAL INFORMATION: None relevant/not provided if blank. Indication: C22.0: HCC (hepatocellular carcinoma) (HCC) Additional History: COMPARISON: 01/11/2024. TECHNIQUE: CT of the abdomen was performed utilizing liver multiphasic protocol. CT dose reduction technique was used, including Automated ExposureControl. IV CONTRAST: IOPAMIDOL 76 % IV SOLN:150 mL FINDINGS: Lower Chest: Normal. Hepatobiliary system Liver morphology: The liver is shrunken and has a nodular surface, consistent with hepatic cirrhosis. Varices: Multiple upper abdominal collaterals including a splenorenal varix. Spleen: Normal. Ascites: None. Focal liver observations Treatment cavity in segment 6/7 (series 14 image 84) withoutenhancement. (LR TR nonviable). No new suspicious arterially enhancing observations identified. Hepatic vasculature Portal and hepatic veins: Normal and patent. Arterial anatomy: Conventional. Gallbladder and bile ducts Gallbladder: Normal. Bile ducts: Nondilated. Retroperitoneum Pancreas: Normal. Adrenals: Normal. Kidneys: Nonobstructing right nephrolithiasis. Kidneys otherwise within normal limits. Lymph nodes: No lymphadenopathy. Gastrointestinal: The stomach and visualized loops of large and small bowel areunremarkable. Normal appendix. Bones: Bone windows demonstrate no suspicious lytic or blastic lesions. Degenerative changes are seen in the spine. Soft tissues: Normal. Impression: 1.Nonviable treatment cavity in segment 6/7 without suspicious features(LR TR nonviable). 2.Hepatic cirrhosis with sequela of portal hypertension. 3.No new suspicious observations. > Interpreting Provider: Stas Shipley MD on 04/18/2024 2:03 PM Isabel Holliday APRN-WIRELESS SALES CONSULTANT CT ORDERABLES * CREATININE - POCT INTERFACED (04/18/2024 10:38 AM FREIGHT FLOW SALES LEADER) [facility] Creatinine POCT 0.91 0.30 - 1.30 mg/dL 04/18/2024 10:44 AM FRE[employer] FLOW SALES LEADER [facility] eGFR >90 >=90 mL/min/1.7 3 m2 04/18/2024 10:44 AM FREIGHT FLOW SALES LEADER [facility] Blood BLOOD SPECIMEN / Unknown 04/18/2024 10:38 AM F[employer]OW SALES LEADER 04/18/2024 10:44 AM [employer] FLOW SALES LEADER Isabel Holliday APRN-[facility] LAB - POINT OF C ARE ORDERABLES Performing Organization Address City/[facility]/ZIP Co de Phone Number [address] [address], [place] [phone] * (ABNORMAL) HEPATITIS C ANTIBODY (11/02/2021 1:13 PM CDT) [facility] Hepatitis C Antibody Reactive( A) Non-react ita 11/02/2021 2:44 PM CDT [facility] Comment:Hepatitis C Antibody screen is consistent with past or current infection with Hepatitis C Virus. Nucleic Acid Test (KAZ) for Hepatitis C Viral RNA should be performed for initial HCV workup, and for differentiating active/chronic infection from resolved infection. Blood BLOOD SPECIMEN / Unknown Lab Venipuncture / Unknown 11/02/2021 1:13 PM CDT 11/02/2021 1:24 PM CDT Henny Dunne MD LAB - CHEMISTRY ALICIA CORRALES Performing Organization Address City/[facility]/ZIP Co de Phone Number [address] [address], [place] [phone] * (ABNORMAL) LIPID PROFILE (11/02/2021 1:13 PM CDT) Cholesterol Total 100 <200 mg/dL 11/02/2021 1:49 PM CDT [facility] HDL 28(L) >40 mg/dL 11/02/2021 1:49 PM CDT [facility] Comment: ATP III Classification of HDL Cholesterol: <40 mg/dL: Considered a major risk factor. >60 mg/dL: Considered a negative risk factor. LDL Calculated 59 <100 mg/dL 11/02/2021 1:49 PM CDT [facility] Comment: ATP III Classification of LDL Cholesterol: <100 mg/dL: Optimal 100 - 129 mg/dL: Near Optimal/Above Optimal 130 - 159 mg/dL: Borderline High 160 - 189 mg/dL: High >190 mg/dL: Very High Triglycerides 63 <150 mg/dL 11/02/2021 1:49 PM T [facility] Comment: ATP III Classification of Triglycerides: <150 mg/dL: Normal 150 - 199 mg/dL: Borderline High 200 - 400 mg/dL: High >500 mg/dL: Very High Blood BLOOD SPECIMEN / Unknown Lab Venipuncture / Unknown 11/02/2021 1:13 PM CDT 11/02/2021 1:25 PM CDT Henny Dunne MD LAB - CHEMISTRY ALICIA CORRALES [facility] Organization Address City/State/[facility] de Phone Number [facility] [address] [place] [address], [facility] [phone] from Last 3 Months or Most Recently Relevant to Health Maintenance Care Teams Broach Grinder Relationship Specialty Start Date End Date Bayron Mg MD [address] [place] [address] PCP - General 09/30/15
--- OUTSIDE RECORDS SUMMARY | 2024-05-04 16:17 | XMS_ITS | Patient Health Summary ---
Author Organization [facility] Address [address] [place] [address] Care Team Providers Care Fiberglass Tube Molder Name Role Phone Bayron Mg MD Primary Care Provider [phone] Note from [facility],non-owned Affiliates and Associated Physician Practices is amultiple site organization consisting of ambulatory clinics and hospital sitesin [place], [place], [place] and [place]. This disclosure is being madepursuant to the Care Everywhere program and may not contain all information available regarding this patient. Last updated 17.[facility] Allergies * Penicillins(Urticaria) -Medium Criticality Medications * Be aware that medications may not be up to date on this document. Alwaysverify current medications with the patient. * QUEtiapine (SEROQUEL) 50 MG tablet Take 1 (one) tablet by mouth 2 times daily * traZODone (DESYREL) 50 MG tablet Take 1 (one) tablet by mouth at bedtime * Albuterol Sulfate 108 (90 Base) MCG/ACT Inhale 2 puffs by mouth 4 times daily * carbidopa-levodopa (Sinemet) 10-100 MG tablet(Started 10/22/2021) Take 1 (one) tablet by mouth once daily * fluticasone hfa 110 (Flovent HFA 110) 110 MCG/ACT inhaler Inhale 2 (two) puffs by mouth 2 times daily * albuterol HFA (Proventil; Ventolin; Proair) 108 (90 Base) MCG/ACT inhaler (Started 01/21/2021) Inhale 2 (two) puffs by mouth as needed * citalopram (CeleXA) 20 MG tablet(Started 01/14/2021) Take 2 (two) tablets by mouth once daily * risperiDONE (RisperDAL) 3 MG tablet(Started 01/14/2021) Take 4 mg by mouth once daily * nicotine ( Nicotine Transdermal System) 21 MG/24HR patch(Started 12/29/2021) Apply 1 patch to daily X 6 weeks, then apply 14 mg patch daily X 2 weeks (#14 patches), then 7 mg patch daily X 2 weeks (#14 patches) Reasons: Nicotine Addiction * lactulose (Chronulac) 10 GM/15ML solution(Started 12/29/2021) Take 5 cc twice daily and titrate to achieve 2-3 soft bowel movements daily. 11 refills by 12/29/2022 Active Problems Problem Noted Date Diagnosed Date HCC (hepatocellular carcinoma) 12/29/2021 Encounter for pre-transplant evaluation for liver transplant 09/16/2021 Viral hepatitis C without hepatic coma 6 Cirrhosis of liver 09/04/2015 Social History Tobacco Use Types Packs/Day Years [...] Comments Blood Pressure 148/85 04/18/2024 11:27 AM CORRESPONDENCE TRANSCRIBER Pulse 99 04/18/2024 11:27 AM CORRESPONDENCE TRANSCRIBER Temperature 36.2 C (97.2 F) 04/18/2024 11:27 AM CORRESPONDENCE TRANSCRIBER Respiratory Rate 14 04/18/2024 11:27 AM CORRESPONDENCE TRANSCRIBER Oxygen Saturation 95% 04/18/2024 11:27 AM CORRESPONDENCE TRANSCRIBER Inhaled Oxygen Concentration - - Weight 86.2 kg (190 lb) 04/18/2024 11:27 AM CORRESPONDENCE TRANSCRIBER Height 180.3 cm (5' 10.98 ) 04/18/2024 11:27 AM CORRESPONDENCE TRANSCRIBER Body Mass Index 26.51 04/18/2024 11:27 AM CORRESPONDENCE TRANSCRIBER Procedures * PT-INR SLH(Performed 04/18/2024) Performed for HCC (hepatocellular carcinoma) (HCC) * COMPREHENSIVE METABOLIC PANEL(Performed 04/18/2024) Performed for HCC (hepatocellular carcinoma) (HCC) * CBC W AUTO DIFFERENTIAL(Performed 04/18/2024) Performed for HCC (hepatocellular carcinoma) (HCC) * ALPHA FETOPROTEIN BLOOD TUMOR MARKER(Performed 04/18/2024) Performed for HCC (hepatocellular carcinoma) (HCC) * CT ABDOMEN MULTI PHASE W CONT(Performed 04/18/2024) Performed for HCC (hepatocellular carcinoma) (HCC) * CREATININE - POCT INTERFACED(Performed 04/18/2024) * CT ABDOMEN MULTI PHASE W CONT(Performed 01/11/2024) Performed for HCC (hepatocellular carcinoma) (HCC) * CREATININE - POCT INTERFACED(Performed 01/11/2024) * DIFFERENTIAL MANUAL(Performed 07/13/2023) Performed for Cirrhosis of liver with ascites, unspecified hepatic cirrhosis type (HCC), HCC (hepatocellular carcinoma) (HCC) * PT-INR SLH(Performed 07/13/2023) Performed for Cirrhosis of liver with ascites, unspecified hepatic cirrhosis type (HCC), HCC (hepatocellular carcinoma) (HCC) * COMPREHENSIVE METABOLIC PANEL(Performed 07/13/2023) Performed for Cirrhosis of liver with ascites, unspecified hepatic cirrhosis type (HCC), HCC (hepatocellular carcinoma) (HCC) * CBC W AUTO DIFFERENTIAL(Performed 07/13/2023) Performed for Cirrhosis of liver with ascites, unspecified hepatic cirrhosis type (HCC), HCC (hepatocellular carcinoma) (HCC) * ALPHA FETOPROTEIN BLOOD TUMOR MARKER(Performed 07/13/2023) Performed for Cirrhosis of liver with ascites, unspecified hepatic cirrhosis type (HCC), HCC (hepatocellular carcinoma) (HCC) * CT ABDOMEN MULTI PHASE W CONT(Performed 07/13/2023) Performed for Cirrhosis of liver with ascites, unspecified hepatic cirrhosis type (HCC), HCC (hepatocellular carcinoma) (HCC) * CREATININE - POCT INTERFACED(Performed 07/13/2023) * PT-INR SLH(Performed 04/06/2023) Performed for HCC (hepatocellular carcinoma) (HCC) * COMPREHENSIVE METABOLIC PANEL(Performed 04/06/2023) Performed for HCC (hepatocellular carcinoma) (HCC) * CBC W AUTO DIFFERENTIAL(Performed 04/06/2023) Performed for HCC (hepatocellular carcinoma) (HCC) * ALPHA FETOPROTEIN BLOOD TUMOR MARKER(Performed 04/06/2023) Performed for HCC (hepatocellular carcinoma) (HCC) * CT ABDOMEN MULTI PHASE W CONT(Performed 04/06/2023) Performed for HCC (hepatocellular carcinoma) (HCC) * CREATININE - POCT INTERFACED(Performed 04/06/2023) * RBC MORPHOLOGY(Performed 01/26/2023) Performed for HCC (hepatocellular carcinoma) (HCC) * PT-INR SLH(Performed 01/26/2023) Performed for HCC (hepatocellular carcinoma) (HCC) * COMPREHENSIVE METABOLIC PANEL(Performed 01/26/2023) Performed for HCC (hepatocellular carcinoma) (HCC) * CBC W AUTO DIFFERENTIAL(Performed 01/26/2023) Performed for HCC (hepatocellular carcinoma) (HCC) * ALPHA FETOPROTEIN BLOOD TUMOR MARKER(Performed 01/26/2023) Performed for HCC (hepatocellular carcinoma) (HCC) * CT ABDOMEN MULTI PHASE W CONT(Performed 01/26/2023) Performed for HCC (hepatocellular carcinoma) (HCC) * CREATININE - POCT INTERFACED(Performed 01/26/2023) * CT ABDOMEN MULTI PHASE W CONT(Performed 11/03/2022) Performed for HCC (hepatocellular carcinoma) (HCC) * CREATININE - POCT INTERFACED(Performed 11/03/2022) * RBC MORPHOLOGY(Performed 07/08/2022) Performed for Cirrhosis of liver with ascites, unspecified hepatic cirrhosis type (HCC), Chronic hepatitis C without hepatic coma (HCC), HCC (hepatocellular carcinoma) (HCC), Encounter for pre-transplant evaluation for liver transplant, Chronic obstructive pulmonary disease, unspecified COPD type (HCC) * ALPHA FETOPROTEIN BLOOD TUMOR MARKER(Performed 07/08/2022) Performed for Cirrhosis of liver with ascites, unspecified hepatic cirrhosis type (HCC), Chronic hepatitis C without hepatic coma (HCC), HCC (hepatocellular carcinoma) (HCC), Encounter for pre-transplant evaluation for liver transplant, Chronic obstructive pulmonary disease, unspecified COPD type (HCC) * DRUG ABUSE URINE PANEL 9A DRUGS W/ALC(Performed 07/08/2022) Performed for Cirrhosis of liver with ascites, unspecified hepatic cirrhosis type (HCC), Chronic hepatitis C without hepatic coma (HCC), HCC (hepatocellular carcinoma) (HCC), Encounter for pre-transplant evaluation for liver transplant, Chronic obstructive pulmonary disease, unspecified COPD type (HCC) * CBC W AUTO DIFFERENTIAL(Performed 07/08/2022) Performed for Cirrhosis of liver with ascites, unspecified hepatic cirrhosis type (HCC), Chronic hepatitis C without hepatic coma (HCC), HCC (hepatocellular carcinoma) (HCC), Encounter for pre-transplant evaluation for liver transplant, Chronic obstructive pulmonary disease, unspecified COPD type (HCC) * PT-INR SLH(Performed 07/08/2022) Performed for Cirrhosis of liver with ascites, unspecified hepatic cirrhosis type (HCC), Chronic hepatitis C without hepatic coma (HCC), HCC (hepatocellular carcinoma) (HCC), Encounter for pre-transplant evaluation for liver transplant, Chronic obstructive pulmonary disease, unspecified COPD type (HCC) * COMPREHENSIVE METABOLIC PANEL(Performed 07/08/2022) Performed for Cirrhosis of liver with ascites, unspecified hepatic cirrhosis type (HCC), Chronic hepatitis C without hepatic coma (HCC), HCC (hepatocellular carcinoma) (HCC), Encounter for pre-transplant evaluation for liver transplant, Chronic obstructive pulmonary disease, unspecified COPD type (HCC) * CT ABDOMEN MULTI PHASE W CONT(Performed 07/08/2022) Performed for HCC (hepatocellular carcinoma) (HCC) * CREATININE - POCT INTERFACED(Performed 07/08/2022) * CT ABDOMEN MULTI PHASE W CONT(Performed 03/30/2022) Performed for HCC (hepatocellular carcinoma) (HCC) * CREATININE - POCT INTERFACED(Performed 03/30/2022) * RBC MORPHOLOGY(Performed 03/30/2022) Performed for HCC (hepatocellular carcinoma) (HCC) * PT-INR SLH(Performed 03/30/2022) Performed for HCC (hepatocellular carcinoma) (HCC) * COMPREHENSIVE METABOLIC PANEL(Performed 03/30/2022) Performed for HCC (hepatocellular carcinoma) (HCC) * CBC W AUTO DIFFERENTIAL(Performed 03/30/2022) Performed for HCC (hepatocellular carcinoma) (HCC) * ALPHA FETOPROTEIN BLOOD TUMOR MARKER(Performed 03/30/2022) Performed for HCC (hepatocellular carcinoma) (HCC) * CANCER ANTIGEN (CA) 19-9(Performed 03/30/2022) Performed for Cirrhosis of liver with ascites, unspecified hepatic cirrhosis type (HCC), Chronic hepatitis C without hepatic coma (HCC), HCC (hepatocellular carcinoma) (HCC), Encounter for pre-transplant evaluation for liver transplant, Chronic obstructive pulmonary disease, unspecified COPD type (HCC) * NICOTINE + METABOLITES BLOOD(Performed 03/30/2022) Performed for Cirrhosis of liver with ascites, unspecified hepatic cirrhosis type (HCC), Chronic hepatitis C without hepatic coma (HCC), HCC (hepatocellular carcinoma) (HCC), Encounter for pre-transplant evaluation for liver transplant, Chronic obstructive pulmonary disease, unspecified COPD type (HCC) * PHOSPHATIDYLETHANOL (PETH)(Performed 03/30/2022) Performed for Cirrhosis of liver with ascites, unspecified hepatic cirrhosis type (HCC), Chronic hepatitis C without hepatic coma (HCC), HCC (hepatocellular carcinoma) (HCC), Encounter for pre-transplant evaluation for liver transplant, Chronic obstructive pulmonary disease, unspecified COPD type (HCC) * RBC MORPHOLOGY(Performed 12/29/2021) Performed for HCC (hepatocellular carcinoma) (HCC) * PT-INR SLH(Performed 12/29/2021) Performed for HCC (hepatocellular carcinoma) (HCC) * COMPREHENSIVE METABOLIC PANEL(Performed 12/29/2021) Performed for HCC (hepatocellular carcinoma) (HCC) * CBC W AUTO DIFFERENTIAL(Performed 12/29/2021) Performed for HCC (hepatocellular carcinoma) (HCC) * ALPHA FETOPROTEIN BLOOD TUMOR MARKER(Performed 12/29/2021) Performed for HCC (hepatocellular carcinoma) (HCC) * XR PANOREX(Performed 12/29/2021) Performed for Encounter for pre-transplant evaluation for liver transplant, Chronic hepatitis C without hepatic coma (HCC), Other cirrhosis of liver (HCC), HCC (hepatocellular carcinoma) (HCC), Chronic obstructive pulmonary disease, unspecified COPD type (HCC) * XR CHEST 2VW(Performed 12/29/2021) Performed for Encounter for pre-transplant evaluation for liver transplant, Chronic hepatitis C without hepatic coma (HCC), Other cirrhosis of liver (HCC), HCC (hepatocellular carcinoma) (HCC), Chronic obstructive pulmonary disease, unspecified COPD type (HCC) * CT ABDOMEN MULTI PHASE W CONT(Performed 11/26/2021) Performed for Hepatocellular carcinoma (HCC) * BLOOD TYPE ABO+ RH PANEL(Performed 11/02/2021) Performed for Encounter for pre-transplant evaluation for liver transplant, Chronic hepatitis C without hepatic coma (HCC), Other cirrhosis of liver (HCC), HCC (hepatocellular carcinoma) (HCC), Chronic obstructive pulmonary disease, unspecified COPD type (HCC) * DRUG ABUSE URINE PANEL 9A DRUGS W/ALC(Performed 11/02/2021) Performed for Encounter for pre-transplant evaluation for liver transplant, Chronic hepatitis C without hepatic coma (HCC), Other cirrhosis of liver (HCC), HCC (hepatocellular carcinoma) (HCC), Chronic obstructive pulmonary disease, unspecified COPD type (HCC) * URINALYSIS W/MICROSCOPIC NO CULTURE(Performed 11/02/2021) Performed for Encounter for pre-transplant evaluation for liver transplant, Chronic hepatitis C without hepatic coma (HCC), Other cirrhosis of liver (HCC), HCC (hepatocellular carcinoma) (HCC), Chronic obstructive pulmonary disease, unspecified COPD type (HCC) * TYPE + SCREEN PANEL(Performed 11/02/2021) Performed for Encounter for pre-transplant evaluation for liver transplant, Chronic hepatitis C without hepatic coma (HCC), Other cirrhosis of liver (HCC), HCC (hepatocellular carcinoma) (HCC), Chronic obstructive pulmonary disease, unspecified COPD type (HCC) * RBC MORPHOLOGY(Performed 11/02/2021) Performed for Encounter for pre-transplant evaluation for liver transplant, Chronic hepatitis C without hepatic coma (HCC), Other cirrhosis of liver (HCC), HCC (hepatocellular carcinoma) (HCC), Chronic obstructive pulmonary disease, unspecified COPD type (HCC) * RUBELLA ANTIBODY IGG TITER(Performed 11/02/2021) Performed for Encounter for pre-transplant evaluation for liver transplant, Chronic hepatitis C with hepatic coma (HCC), Other cirrhosis of liver (HCC), HCC (hepatocellular carcinoma) (HCC) * PTH INTACT W/O CALCIUM(Performed 11/02/2021) Performed for Encounter for pre-transplant evaluation for liver transplant, Chronic hepatitis C with hepatic coma (HCC), Other cirrhosis of liver (HCC), HCC (hepatocellular carcinoma) (HCC) * PT-INR SLH(Performed 11/02/2021) Performed for Hepatocellular carcinoma (HCC) * QUANTIFERON-TB GOLD PLUS 4-TUBE(Performed 11/02/2021) Performed for Encounter for pre-transplant evaluation for liver transplant, Chronic hepatitis C without hepatic coma (HCC), Other cirrhosis of liver (HCC), HCC (hepatocellular carcinoma) (HCC), Chronic obstructive pulmonary disease, unspecified COPD type (HCC) * TOXOPLASMA GONDII ANTIBODY IGG(Performed 11/02/2021) Performed for Encounter for pre-transplant evaluation for liver transplant, Chronic hepatitis C without hepatic coma (HCC), Other cirrhosis of liver (HCC), HCC (hepatocellular carcinoma) (HCC), Chronic obstructive pulmonary disease, unspecified COPD type (HCC) * STRONGYLOIDES ANTIBODY IGG(Performed 11/02/2021) Performed for Encounter for pre-transplant evaluation for liver transplant, Chronic hepatitis C without hepatic coma (HCC), Other cirrhosis of liver (HCC), HCC (hepatocellular carcinoma) (HCC), Chronic obstructive pulmonary disease, unspecified COPD type (HCC) * PHOSPHATIDYLETHANOL (PETH)(Performed 11/02/2021) Performed for Encounter for pre-transplant evaluation for liver transplant, Chronic hepatitis C without hepatic coma (HCC), Other cirrhosis of liver (HCC), HCC (hepatocellular carcinoma) (HCC), Chronic obstructive pulmonary disease, unspecified COPD type (HCC) * PROSTATE SPECIFIC ANTIGEN SCREEN(Performed 11/02/2021) Performed for Encounter for pre-transplant evaluation for liver transplant, Chronic hepatitis C without hepatic coma (HCC), Other cirrhosis of liver (HCC), HCC (hepatocellular carcinoma) (HCC), Chronic obstructive pulmonary disease, unspecified COPD type (HCC) * VARICELLA ZOSTER ANTIBODY IGG(Performed 11/02/2021) Performed for Encounter for pre-transplant evaluation for liver transplant, Chronic hepatitis C without hepatic coma (HCC), Other cirrhosis of liver (HCC), HCC (hepatocellular carcinoma) (HCC), Chronic obstructive pulmonary disease, unspecified COPD type (HCC) * MUMPS ANTIBODY IGG(Performed 11/02/2021) Performed for Encounter for pre-transplant evaluation for liver transplant, Chronic hepatitis C without hepatic coma (HCC), Other cirrhosis of liver (HCC), HCC (hepatocellular carcinoma) (HCC), Chronic obstructive pulmonary disease, unspecified COPD type (HCC) * RUBEOLA ANTIBODY IGG(Performed 11/02/2021) Performed for Encounter for pre-transplant evaluation for liver transplant, Chronic hepatitis C without hepatic coma (HCC), Other cirrhosis of liver (HCC), HCC (hepatocellular carcinoma) (HCC), Chronic obstructive pulmonary disease, unspecified COPD type (HCC) * NICOTINE + METABOLITES BLOOD(Performed 11/02/2021) Performed for Encounter for pre-transplant evaluation for liver transplant, Chronic hepatitis C without hepatic coma (HCC), Other cirrhosis of liver (HCC), HCC (hepatocellular carcinoma) (HCC), Chronic obstructive pulmonary disease, unspecified COPD type (HCC) * ALCOHOL ETHYL BLOOD(Performed 11/02/2021) Performed for Encounter for pre-transplant evaluation for liver transplant, Chronic hepatitis C without hepatic coma (HCC), Other cirrhosis of liver (HCC), HCC (hepatocellular carcinoma) (HCC), Chronic obstructive pulmonary disease, unspecified COPD type (HCC) * SYPHILIS ANTIBODY CASCADING REFLEX(Performed 11/02/2021) Performed for Encounter for pre-transplant evaluation for liver transplant, Chronic hepatitis C without hepatic coma (HCC), Other cirrhosis of liver (HCC), HCC (hepatocellular carcinoma) (HCC), Chronic obstructive pulmonary disease, unspecified COPD type (HCC) * HEMOGLOBIN A1C(Performed 11/02/2021) Performed for Encounter for pre-transplant evaluation for liver transplant, Chronic hepatitis C without hepatic coma (HCC), Other cirrhosis of liver (HCC), HCC (hepatocellular carcinoma) (HCC), Chronic obstructive pulmonary disease, unspecified COPD type (HCC) * TERESITA-ARIAS VIRUS ANTIBODY TO VCA IGG(Performed 11/02/2021) Performed for Encounter for pre-transplant evaluation for liver transplant, Chronic hepatitis C without hepatic coma (HCC), Other cirrhosis of liver (HCC), HCC (hepatocellular carcinoma) (HCC), Chronic obstructive pulmonary disease, unspecified COPD type (HCC) * CYTOMEGALOVIRUS ANTIBODY IGG BLOOD(Performed 11/02/2021) Performed for Encounter for pre-transplant evaluation for liver transplant, Chronic hepatitis C without hepatic coma (HCC), Other cirrhosis of liver (HCC), HCC (hepatocellular carcinoma) (HCC), Chronic obstructive pulmonary disease, unspecified COPD type (HCC) * ALPHA FETOPROTEIN BLOOD TUMOR MARKER(Performed 11/02/2021) Performed for Encounter for pre-transplant evaluation for liver transplant, Chronic hepatitis C without hepatic coma (HCC), Other cirrhosis of liver (HCC), HCC (hepatocellular carcinoma) (HCC), Chronic obstructive pulmonary disease, unspecified COPD type (HCC) * HEPATITIS C ANTIBODY(Performed 11/02/2021) Performed for Encounter for pre-transplant evaluation for liver transplant, Chronic hepatitis C without hepatic coma (HCC), Other cirrhosis of liver (HCC), HCC (hepatocellular carcinoma) (HCC), Chronic obstructive pulmonary disease, unspecified COPD type (HCC) * LIPID PROFILE(Performed 11/02/2021) Performed for Encounter for pre-transplant evaluation for liver transplant, Chronic hepatitis C without hepatic coma (HCC), Other cirrhosis of liver (HCC), HCC (hepatocellular carcinoma) (HCC), Chronic obstructive pulmonary disease, unspecified COPD type (HCC) * PHOSPHORUS BLOOD(Performed 11/02/2021) Performed for Encounter for pre-transplant evaluation for liver transplant, Chronic hepatitis C without hepatic coma (HCC), Other cirrhosis of liver (HCC), HCC (hepatocellular carcinoma) (HCC), Chronic obstructive pulmonary disease, unspecified COPD type (HCC) * IRON BLOOD(Performed 11/02/2021) Performed for Encounter for pre-transplant evaluation for liver transplant, Chronic hepatitis C without hepatic coma (HCC), Other cirrhosis of liver (HCC), HCC (hepatocellular carcinoma) (HCC), Chronic obstructive pulmonary disease, unspecified COPD type (HCC) * FERRITIN(Performed 11/02/2021) Performed for Encounter for pre-transplant evaluation for liver transplant, Chronic hepatitis C without hepatic coma (HCC), Other cirrhosis of liver (HCC), HCC (hepatocellular carcinoma) (HCC), Chronic obstructive pulmonary disease, unspecified COPD type (HCC) * TRANSFERRIN(Performed 11/02/2021) Performed for Encounter for pre-transplant evaluation for liver transplant, Chronic hepatitis C without hepatic coma (HCC), Other cirrhosis of liver (HCC), HCC (hepatocellular carcinoma) (HCC), Chronic obstructive pulmonary disease, unspecified COPD type (HCC) * COMPREHENSIVE METABOLIC PANEL(Performed 11/02/2021) Performed for Encounter for pre-transplant evaluation for liver transplant, Chronic hepatitis C without hepatic coma (HCC), Other cirrhosis of liver (HCC), HCC (hepatocellular carcinoma) (HCC), Chronic obstructive pulmonary disease, unspecified COPD type (HCC) * CBC W AUTO DIFFERENTIAL(Performed 11/02/2021) Performed for Encounter for pre-transplant evaluation for liver transplant, Chronic hepatitis C without hepatic coma (HCC), Other cirrhosis of liver (HCC), HCC (hepatocellular carcinoma) (HCC), Chronic obstructive pulmonary disease, unspecified COPD type (HCC) * HEPATITIS C QUANTITATIVE REFLX GENOTYPE(Performed 11/02/2021) Performed for Encounter for pre-transplant evaluation for liver transplant, Chronic hepatitis C with hepatic coma (HCC), Other cirrhosis of liver (HCC), HCC (hepatocellular carcinoma) (HCC) * PREPARE PLATELET PHERESIS UNIT(S)(Performed 10/08/2021) Performed for Hepatic cirrhosis, unspecified hepatic cirrhosis type, unspecified whether ascites present (HCC) * CT MICROWAVE ABLATION(Performed 10/07/2021) Performed for Hepatocellular carcinoma (HCC) * ENDOTRACHEAL TUBE NOTE(Performed 10/07/2021) * PERIPHERAL IV NOTE(Performed 10/07/2021) * PREPARE PLATELET PHERESIS UNIT(S)(Performed 10/07/2021) Performed for Hepatic cirrhosis, unspecified hepatic cirrhosis type, unspecified whether ascites present (HCC) * TYPE + SCREEN PANEL(Performed 10/07/2021) Performed for Pre-op evaluation * PT-INR SLH(Performed 10/07/2021) Performed for Hepatocellular carcinoma (HCC) * COMPREHENSIVE METABOLIC PANEL(Performed 10/07/2021) Performed for Hepatocellular carcinoma (HCC) * CBC W/O DIFFERENTIAL(Performed 10/07/2021) Performed for Hepatocellular carcinoma (HCC) * TYPE + SCREEN PANEL(Performed 10/05/2021) Performed for Pre-op evaluation * PT-INR SLH(Performed 10/05/2021) Performed for Pre-op evaluation * COMPREHENSIVE METABOLIC PANEL(Performed 10/05/2021) Performed for Pre-op evaluation * CBC W/O DIFFERENTIAL(Performed 10/05/2021) Performed for Pre-op evaluation * CYTOPLASMIC PATTERN(Performed 09/02/2021) Performed for Cirrhosis of liver with ascites, unspecified hepatic cirrhosis type (HCC), Chronic hepatitis C without hepatic coma (HCC), Esophageal varices without bleeding, unspecified esophageal varices type (HCC), Screening of cancer, Liver lesion, HCC (hepatocellular carcinoma) (HCC) * LYDIA BLOOD SINGLE PATTERN(Performed 09/02/2021) Performed for Cirrhosis of liver with ascites, unspecified hepatic cirrhosis type (HCC), Chronic hepatitis C without hepatic coma (HCC), Esophageal varices without bleeding, unspecified esophageal varices type (HCC), Screening of cancer, Liver lesion, HCC (hepatocellular carcinoma) (HCC) * LYDIA HEP-2 IGG BY IFA(Performed 09/02/2021) Performed for Cirrhosis of liver with ascites, unspecified hepatic cirrhosis type (HCC), Chronic hepatitis C without hepatic coma (HCC), Esophageal varices without bleeding, unspecified esophageal varices type (HCC), Screening of cancer, Liver lesion, HCC (hepatocellular carcinoma) (HCC) * SMOOTH MUSCLE ANTIBODY TITER(Performed 09/02/2021) Performed for Cirrhosis of liver with ascites, unspecified hepatic cirrhosis type (HCC), Chronic hepatitis C without hepatic coma (HCC), Esophageal varices without bleeding, unspecified esophageal varices type (HCC), Screening of cancer, Liver lesion, HCC (hepatocellular carcinoma) (HCC) * HEPATITIS C GENOTYPE(Performed 09/02/2021) Performed for Cirrhosis of liver with ascites, unspecified hepatic cirrhosis type (HCC), Chronic hepatitis C without hepatic coma (HCC), Esophageal varices without bleeding, unspecified esophageal varices type (HCC), Screening of cancer, Liver lesion, HCC (hepatocellular carcinoma) (HCC) * ALPHA FETOPROTEIN BLOOD TUMOR MARKER(Performed 09/02/2021) Performed for Cirrhosis of liver with ascites, unspecified hepatic cirrhosis type (HCC), Chronic hepatitis C without hepatic coma (HCC), Esophageal varices without bleeding, unspecified esophageal varices type (HCC), Screening of cancer, Liver lesion, HCC (hepatocellular carcinoma) (HCC) * PT-INR [facility](Performed 09/02/2021) Performed for Cirrhosis of liver with ascites, unspecified hepatic cirrhosis type (HCC), Chronic hepatitis C without hepatic coma (HCC), Esophageal varices without bleeding, unspecified esophageal varices type (HCC), Screening of cancer, Liver lesion, HCC (hepatocellular carcinoma) (HCC) * COMPREHENSIVE METABOLIC PANEL(Performed 09/02/2021) Performed for Cirrhosis of liver with ascites, unspecified hepatic cirrhosis type (HCC), Chronic hepatitis C without hepatic coma (HCC), Esophageal varices without bleeding, unspecified esophageal varices type (HCC), Screening of cancer, Liver lesion, HCC (hepatocellular carcinoma) (HCC) * CBC W/O DIFFERENTIAL(Performed 09/02/2021) Performed for Cirrhosis of liver with ascites, unspecified hepatic cirrhosis type (HCC), Chronic hepatitis C without hepatic coma (HCC), Esophageal varices without bleeding, unspecified esophageal varices type (HCC), Screening of cancer, Liver lesion, HCC (hepatocellular carcinoma) (HCC) * MITOCHONDRIAL ANTIBODY SCREEN(Performed 09/02/2021) Performed for Cirrhosis of liver with ascites, unspecified hepatic cirrhosis type (HCC), Chronic hepatitis C without hepatic coma (HCC), Esophageal varices without bleeding, unspecified esophageal varices type (HCC), Screening of cancer, Liver lesion, HCC (hepatocellular carcinoma) (HCC) * IGG BLOOD(Performed 09/02/2021) Performed for Cirrhosis of liver with ascites, unspecified hepatic cirrhosis type (HCC), Chronic hepatitis C without hepatic coma (HCC), Esophageal varices without bleeding, unspecified esophageal varices type (HCC), Screening of cancer, Liver lesion, HCC (hepatocellular carcinoma) (HCC) * SMOOTH MUSCLE ANTIBODY W REFLEX TITER(Performed 09/02/2021) Performed for Cirrhosis of liver with ascites, unspecified hepatic cirrhosis type (HCC), Chronic hepatitis C without hepatic coma (HCC), Esophageal varices without bleeding, unspecified esophageal varices type (HCC), Screening of cancer, Liver lesion, HCC (hepatocellular carcinoma) (HCC) * LYDIA BLOOD SCREEN W/REFLEX TITER(Performed 09/02/2021) Performed for Cirrhosis of liver with ascites, unspecified hepatic cirrhosis type (HCC), Chronic hepatitis C without hepatic coma (HCC), Esophageal varices without bleeding, unspecified esophageal varices type (HCC), Screening of cancer, Liver lesion, HCC (hepatocellular carcinoma) (HCC) * HEPATITIS C RNA QUANTITATIVE(Performed 09/02/2021) Performed for Cirrhosis of liver with ascites, unspecified hepatic cirrhosis type (HCC), Chronic hepatitis C without hepatic coma (HCC), Esophageal varices without bleeding, unspecified esophageal varices type (HCC), Screening of cancer, Liver lesion, HCC (hepatocellular carcinoma) (HCC) * HEPATITIS B CORE ANTIBODY TOTAL(Performed 09/02/2021) Performed for Cirrhosis of liver with ascites, unspecified hepatic cirrhosis type (HCC), Chronic hepatitis C without hepatic coma (HCC), Esophageal varices without bleeding, unspecified esophageal varices type (HCC), Screening of cancer, Liver lesion, HCC (hepatocellular carcinoma) (HCC) * HEPATITIS B SURFACE ANTIBODY(Performed 09/02/2021) Performed for Cirrhosis of liver with ascites, unspecified hepatic cirrhosis type (HCC), Chronic hepatitis C without hepatic coma (HCC), Esophageal varices without bleeding, unspecified esophageal varices type (HCC), Screening of cancer, Liver lesion, HCC (hepatocellular carcinoma) (HCC) * HEPATITIS B SURFACE ANTIGEN W RFLX CONFIRMATION(Performed 09/02/2021) Performed for Cirrhosis of liver with ascites, unspecified hepatic cirrhosis type (HCC), Chronic hepatitis C without hepatic coma (HCC), Esophageal varices without bleeding, unspecified esophageal varices type (HCC), Screening of cancer, Liver lesion, HCC (hepatocellular carcinoma) (HCC) * HEPATITIS A ANTIBODY(Performed 09/02/2021) Performed for Cirrhosis of liver with ascites, unspecified hepatic cirrhosis type (HCC), Chronic hepatitis C without hepatic coma (HCC), Esophageal varices without bleeding, unspecified esophageal varices type (HCC), Screening of cancer, Liver lesion, HCC (hepatocellular carcinoma) (HCC) * CT ABDOMEN MULTI PHASE W CONT(Performed 10/17/2015) * CREATININE BLOOD - POCT (IP) [facility](Performed 10/17/2015) * HEPATITIS C GENOTYPE 1 NS5A DRUG RESISTANCE(Performed 09/04/2015) * HEPATITIS C GENOTYPE(Performed 09/04/2015) * HEPATITIS C RNA QUANTITATIVE(Performed 09/04/2015) * [id number] BLOOD PHENOTYPING PANEL(Performed 09/04/2015) * LYDIA BLOOD SCREEN(Performed 09/04/2015) * MITOCHONDRIAL ANTIBODY SCREEN(Performed 09/04/2015) * SMOOTH MUSCLE ANTIBODY(Performed 09/04/2015) * ALPHA FETOPROTEIN BLOOD TUMOR MARKER(Performed 09/04/2015) * HEPATITIS A ANTIBODY(Performed 09/04/2015) * FERRITIN(Performed 09/04/2015) * RBC MORPHOLOGY(Performed 09/04/2015) * HEPATITIS B SURFACE ANTIGEN W RFLX CONFIRMATION(Performed 09/04/2015) * HEPATITIS B SURFACE ANTIBODY(Performed 09/04/2015) * HEPATITIS B CORE ANTIBODY TOTAL(Performed 09/04/2015) * COMPREHENSIVE METABOLIC PANEL(Performed 09/04/2015) * CERULOPLASMIN(Performed 09/04/2015) * VXXQG-2-[id number] BLOOD(Performed 09/04/2015) * CBC W AUTO DIFFERENTIAL(Performed 09/04/2015) * PT-INR [facility](Performed 09/04/2015) * LYDIA BLOOD SCREEN W/REFLEX TITER(Performed 09/04/2015) * CBC W AUTO DIFFERENTIAL(Performed 09/04/2015) Results * (ABNORMAL) PT-INR [facility] (04/18/2024 11:21 AM CORRESPONDENCE TRANSCRIBER) Only the most recent of12 resultswithin the time period is included. PT 15.8(H) 12.1 - 14.8 Seconds 04/18/2024 12:06 PM [facility] INR 1.3 See Comment 04/18/2024 12:06 PM [facility]ORATORY [facility] Comment:The suggested therap eutic range for standard coumadin (warfarin) therapy is an INR of 2.0-3.0. For high-risk patients (Mechanical Mitral Valve Prosthesis, etc.), the suggested prophylactic therapeutic range is an INR of 2.5-3.5. Blood BLOOD SPECIMEN / Unknown Lab Venipuncture / Unknown 04/18/2024 11:21 AM CORRESPONDENCE TRANSCRIBER 04/18/2024 11:40 AM CORRESPONDENCE TRANSCRIBER Isabel IBANEZ LAB - COAGULATIO N ORDERABLES Performing Organization Address [facility]/ZIP Co de Phone Number [address] [address], [facility] [phone] * ALPHA FETOPROTEIN BLOOD TUMOR MARKER (04/18/2024 11:21 AM CORRESPONDENCE TRANSCRIBER) Only the most recent of10 resultswithin the time period is included. [facility] Alpha-Fetoprote in Tumor Marker 2.8 <=8.3 ng/mL 04/18/2024 12:31 PM [facility] Comment: AFP values will vary depending on testing procedure used. Results are not comparable across different methods. AFP values obtained by [facility] using an [employer] Direct Alinity Immunoassay. Blood BLOOD SPECIMEN / Unknown Lab Venipuncture / Unknown 04/18/2024 11:21 AM CORRESPONDENCE TRANSCRIBER 04/18/2024 11:44 AM CORRESPONDENCE TRANSCRIBER Isabel IBANEZ LAB - CHEMISTRY ORDERABLES Performing Organization Address [facility]/ZIP Co de Phone Number [address] [address], [facility] [phone] * (ABNORMAL) CBC WITH DIFFERENTIAL (04/18/2024 11:21 AM CORRESPONDENCE TRANSCRIBER) Only the most recent of10 resultswithin the time period is included. [facility] WBC 3.1(L) 4.0 - 10.7 x10E9/L 04/18/2024 12:21 PM [facility] RBC Count 3.09(L) 4.30 - 5.80 x10E12/L 04/18/2024 12:21 PM [facility] Hemoglobin 12.7(L) 13.3 - 17.5 g/dL 04/18/2024 12:21 PM [facility] Hematocrit 35.5(L) 38.7 - 51.1 % 04/18/2024 12:21 PM [facility] MCV 114.9(H) 80.0 - 98.0 fL 04/18/2024 12:21 PM [facility] MCH 41.1(H) 26.7 - 33.6 pg 04/18/2024 12:21 PM [facility] MCHC 35.8 31.7 - 36.3 g/dL 04/18/2024 12:21 PM [facility] RDW-CV 14.7 11.3 - 14.8 % 04/18/2024 12:21 PM [facility] Platelet Count 68(L) 150 - 420 x10E9/L 04/18/2024 12:21 PM [facility] MPV 10.9 7.8 - 11.4 fL 04/18/2024 12:21 PM [facility] Neutrophil % 48.5 41.0 - 74.0 % 04/18/2024 12:21 PM [facility] Lymphocyte % 35.7 17.0 - 47.0 % 04/18/2024 12:21 PM [facility] Monocyte % 13.6(H) 3.0 - 11.0 % 04/18/2024 12:21 PM [facility] Eosinophil % 1.6 0.0 - 7.0 % 04/18/2024 12:21 PM [facility] Basophil % 0.3 0.0 - 1.6 % 04/18/2024 12:21 PM [facility] Immature Granulocytes % 0.3 0.0 - 1.0 % 04/18/2024 12:21 PM [facility] Neutrophil Absolute 1.49(L) 1.60 - 7.50 x10E9/L 04/18/2024 12:21 PM [facility] Lymphocyte Absolute 1.10 1.00 - 4.40 x10E9/L 04/18/2024 12:21 PM [facility] Monocyte Absolute 0.42 0.15 - 1.00 x10E9/L 04/18/2024 12:21 PM [facility] Eosinophil Absolute 0.05 0.00 - 0.60 x10E9/L 04/18/2024 12:21 PM [facility] Basophil Absolute 0.01 0.00 - 0.13 x10E9/L 04/18/2024 12:21 PM [facility] Blood BLOOD SPECIMEN / Unknown Lab Venipuncture / Unknown 04/18/2024 11:21 AM CORRESPONDENCE TRANSCRIBER 04/18/2024 11:44 AM CORRESPONDENCE TRANSCRIBER Isabel Holliday SOLE DYER-ENGINEERING SPECIALIST TECHNICIAN LAB - HEMATOLOGY ORDERABLES [facility] [address] [place] [address], [facility] [phone] * (ABNORMAL) COMPREHENSIVE METABOLIC PANEL (04/18/2024 11:21 AM CORRESPONDENCE TRANSCRIBER) Only the most recent of12 resultswithin the time period is included. BUN 9 7 - 26 mg/dL 04/18/2024 12:16 PM [facility] Creatinine 0.69(L) 0.71 - 1.16 mg/dL 04/18/2024 12:16 PM [facility] Sodium 134(L) 136 - 145 mmol/L 04/18/2024 12:16 PM [facility] Potassium 3.8 3.5 - 4.5 mmol/L 04/18/2024 12:16 PM [facility] Chloride 100 98 - 107 mmol/L 04/18/2024 12:16 PM [facility] CO2 23 22 - 29 mmol/L 04/18/2024 12:16 PM [facility] Glucose 115(H) 70 - 99 mg/dL 04/18/2024 12:16 PM [facility] Calcium 8.9 8.4 - 10.2 mg/dL 04/18/2024 12:16 PM [facility] Protein Total 7.2 6.0 - 8.3 g/dL 04/18/2024 12:16 PM [facility] Albumin 3.2(L) 3.4 - 5.0 g/dL 04/18/2024 12:16 PM [facility] Bilirubin Total 1.0 0.2 - 1.2 mg/dL 04/18/2024 12:16 PM [facility] Alkaline Phosphatase 190(H) 40 - 150 U/L 04/18/2024 12:16 PM [facility] ALT 16 5 - 55 U/L 04/18/2024 12:16 PM [facility] AST 53(H) 5 - 34 U/L 04/18/2024 12:16 PM [facility] Anion Gap 11 6 - 16 04/18/2024 12:16 PM [facility] BUN/Creatinine Ratio 13 7 - 23 04/18/2024 12:16 PM [facility] Osmolality Calculated 278 275 - 295 mOsm/kg 04/18/2024 12:16 PM [facility] Albumin/Globulin Ratio 0.8(L) 1.1 - 2.3 04/18/2024 12:16 PM [facility] eGFR by CKD-EPI >90 >=90 mL/min/1.7 3 m2 04/18/2024 12:16 PM [facility] Blood BLOOD SPECIMEN / Unknown Lab Venipuncture / Unknown 04/18/2024 11:21 AM CORRESPONDENCE TRANSCRIBER 04/18/2024 11:44 AM CORRESPONDENCE TRANSCRIBER Isabel Holliday SOLE DYER-ENGINEERING SPECIALIST TECHNICIAN LAB - CHEMISTRY ORDERABLES [facility] [address] [place] [id number], [facility] [phone] * CT Abdomen Multi Phase W Cont (04/18/2024 11:00 AM CORRESPONDENCE TRANSCRIBER) Only the most recent of10 resultswithin the time period is included. Anatomical Region Laterality Modality Abdomen Computed Tomogra phy 04/18/2024 1:57 PM CORRESPONDENCE TRANSCRIBER Impressions 04/18/2024 2:03 PM CORRESPONDENCE TRANSCRIBER Impression: 1.Nonviable treatment cavity in segment 6/7 without suspicious features (LR TR nonviable). 2.Hepatic cirrhosis with sequela of portal hypertension. 3.No new suspicious observations. > Interpreting Provider: Stas Shipley MD on 04/18/2024 2:03 PM Narrative 04/18/2024 2:03 PM CORRESPONDENCE TRANSCRIBER PROCEDURE: CT ABDOMEN MULTI PHASE W CONT [...] MD on 04/18/2024 2:03 PM Isabel [facility] ORDERABLES * CREATININE - POCT INTERFACED (04/18/2024 10:38 AM CORRESPONDENCE TRANSCRIBER) Only the most recent of8 resultswithin the time period is included. Creatinine POCT 0.91 0.30 - 1.30 mg/dL 04/18/2024 10:44 AM CORRESPONDENCE TRANSCRIBER [facility] eGFR >90 >=90 mL/min/1.7 3 m2 04/18/2024 10:44 AM CORRESPONDENCE TRANSCRIBER [facility] Blood BLOOD SPECIMEN / Unknown 04/18/2024 10:38 AM CORRESPONDENCE TRANSCRIBER 04/18/2024 10:44 AM CORRESPONDENCE TRANSCRIBER Isabel Holliday [facility] LAB - POINT OF C ARE ORDERABLES [facility] [address] [place] [address], [facility] [phone] * (ABNORMAL) DIFFERENTIAL MANUAL (07/13/2023 12:16 PM CDT) Neutrophil % 31(L) 41 - 74 % 07/13/2023 2:13 PM CDT [facility] Lymphocyte % 46 17 - 47 % 07/13/2023 2:13 PM CDT [facility] Monocyte % 15(H) 3 - 11 % 07/13/2023 2:13 PM CDT [facility] Eosinophil % 8(H) 0 - 7 % 07/13/2023 2:13 PM CDT [facility] Neutrophil Absolute 0.78(L) 1.60 - 7.50 x10E9/L 07/13/2023 2:13 PM CDT [facility] Lymphocyte Absolute 1.15 1.00 - 4.40 x10E9/L 07/13/2023 2:13 PM CDT [facility] Monocyte Absolute 0.38 0.15 - 1.00 x10E9/L 07/13/2023 2:13 PM CDT [facility] Eosinophil Absolute 0.20 0.00 - 0.60 x10E9/L 07/13/2023 2:13 PM T [facility] RBC Morphology REVIEWED 07/13/2023 2:13 PM CDT [facility] Macrocytosis MANY(A) (none) 07/13/2023 2:13 PM [facility] Polychromatic Cells MODERATE(A) (none) 07/13/2023 2:13 PM CDT [facility] Smudge Cells PRESENT(A) (none) 07/13/2023 2:13 PM T [facility] Blood BLOOD SPECIMEN / Unknown Lab Venipuncture / Unknown 07/13/2023 12:16 PM CDT 07/13/2023 12:58 PM CDT Isabel Mg SOLE DYER-ENGINEERING SPECIALIST TECHNICIAN LAB - HEMATOLOGY ORDERABLES [facility] [address] [place] [address], [facility] [phone] * (ABNORMAL) RBC MORPHOLOGY (01/26/2023 11:31 AM CDT) Only the most recent of6 resultswithin the time period is included. Platelet Estimate Slightly Decreased(A) Adequate 01/26/2023 2:09 PM CDT [facility] Macrocytosis 1+(A) None 01/26/2023 2:09 PM T [facility] Tear Drop Cells Occasional(A ) None 01/26/2023 2:09 PM CDT [facility] Spherocytes Rare(A) None 01/26/2023 2:09 PM CDT [facility] Blood BLOOD SPECIMEN / Unknown Lab Venipuncture / Unknown 01/26/2023 11:31 AM CDT 01/26/2023 12:08 PM CDT Isabel Holliday SOLE DYER-ENGINEERING SPECIALIST TECHNICIAN LAB - HEMATOLOGY ORDERABLES [facility] [place] [address], [facility] [phone] * DRUG ABUSE URINE PANEL 9A DRUGS W/ALC (07/08/2022 1:03 PM CDT) Only the most recent of2 resultswithin the time period is included. Amphetamines Urine Negative Cutoff 300 ng/mL 07/09/2022 1:08 PM CDT [facility] ([facility]) Cocaine Urine Negative Cutoff 150 ng/mL 07/09/2022 1:08 PM CDT [facility]) Opiates Urine Negative Cutoff 300 ng/mL 07/09/2022 1:08 PM CDT [facility]) Oxycodone Urine Negative Cutoff 100 ng/mL 07/09/2022 1:08 PM CDT [facility] ([facility]) Phencyclidine Urine Negative Cutoff 25 ng/mL 07/09/2022 1:08 PM CDT [facility]) MDMA Urine Negative Cutoff 500 ng/mL 07/09/2022 1:08 PM CDT [facility]) Barbiturates Urine Negative Cutoff 200 ng/mL 07/09/2022 1:08 PM CDT [facility]) Benzodiazepines Urine Negative Cutoff 200 ng/mL 07/09/2022 1:08 PM CDT [facility] ([facility]) Alcohol Urine Screen Negative Cutoff 40 mg/dL 07/09/2022 1:08 PM CDT [facility] ([facility]) Cannabinoids Urine Positive Cutoff 20 ng/mL 07/09/2022 1:08 PM CDT [facility] ([facility]) Comment: Presumptively POSITIVE for cannabinoids (marijuana or Marinol use) by enzyme immunoassay. NOT CONFIRMED by LC-MS/MS. Unconfirmed positive may be useful for medical purposes, but does not meet forensic standards. Methadone Screen Urine Negative Cutoff 150 ng/mL 07/09/2022 1:08 PM CDT [facility] ([facility]) Propoxyphene Screen Urine Negative Cutoff 300 ng/mL 07/09/2022 1:08 PM CDT [facility] ([facility]) Creatinine Urine 83.6 20.0 - 400.0 mg/dL 07/09/2022 1:08 PM CDT [facility] ([facility]) Drug Panel 9A Screen Only Comments See Note 07/09/2022 1:08 PM CDT [facility] ([facility]) Comment: INTERPRETIVE INFORMATION: Drug Panel 9A, Screen Only, Urine This is a screening test only. False positive and false negative results can occur. Positive results are not automatically reflexed to a confirmatory test. Confirmation by GC/MS and/or LC-MS/MS must be requested separately. Confirmatory testing for drugs and/or drug classes detected by this screening test is recommended. The absence of expected drug(s) and/or drug metabolite(s) may indicate non-compliance, inappropriate timing of specimen collection relative to drug administration, poor drug absorption, diluted/adulterated urine, or limitations of testing. The concentration at which the screening test can detect a drug or metabolite varies within a drug class. The concentration value must be greater than or equal to the cutoff to be reported as positive. Interpretive questions should be directed to the laboratory. The following opioids are not detected in this test, but can be ordered separately: fentanyl, buprenorphine, meperidine, tramadol, and tapentadol. A comprehensive panel that includes these opioids is available or individual opioid testing can be ordered. Refer to [employer] for test information. For medical purposes only; not valid for forensic use. Performed by [facility], [address] [place], [place] [id number] [email or web address], Ananda Gonzales MD, PHD, Lab. Director Urine URINE / Unknown Collection / Unknown 07/08/2022 1:03 PM CDT 07/08/2022 1:32 PM CDT Henny Dunne MD LAB - URINE CHEMISTR Y ORDERABLES [facility] ([facility]) [address] [place] [address], [facility] * PHOSPHATIDYLETHANOL (PETH) (03/30/2022 1:14 PM CORRESPONDENCE TRANSCRIBER) Only the most recent of2 resultswithin the time period is included. PEth 16:0/18.1 (POPEth) 23 ng/mL 04/02/2022 12:06 AM CORRESPONDENCE TRANSCRIBER [employer] ([facility]) Comment: INTERPRETIVE INFORMATION:Phosphatidylethanol (PEth), Whole Blood Phosphatidylethanol (PEth) homologues Result Interpretation PEth 16:0/18:1 (POPEth) Less than 10 ng/mL............Not detected Less than 20 ng/mL............Abstinence or light alcohol consumption 20 - 200 ng/mL................Moderate alcohol consumption Greater than 200 ng/mL........Heavy alcohol consumption or chronic alcohol use PEth 16:0/18:2 (PLPEth).......Reference ranges are not well established. (Reference: Enoch Castrejon and Pura Sandhu 2018 J. Forensic Sci) Phosphatidylethanol (PEth) is a group of phospholipids formed in the presence of ethanol, phospholipase D and phosphatidylcholine. PEth is known to be a direct alcohol biomarker. The predominant PEth homologues are PEth 16:0/18:1 (POPEth) and PEth 16:0/18:2 (PLPEth), which account for 37-46% and 26-28% of the total PEth homologues, respectively. PEth is incorporated into the phospholipid membrane of red blood cells and has a general half-life of 4-10 days and a window of detection of 2-4 weeks. However, the window of detection is longer in individuals who chronically or excessively consume alcohol. The limit of quantification is 10 ng/mL. Serial monitoring of PEth may be helpful in monitoring alcohol abstinence over time. PEth results should be interpreted in the context of the patient's clinical and behavioral history. Patients with advanced liver disease may have falsely elevated PEth concentrations (Perla FRIEDMAN et al 2018, Alcoholism Clinical & Experimental Research). Test developed and characteristics determined by [facility]. See Compliance Statement B: [employer] PEth 16:0/18.2 (PLPEth) 19 ng/mL 04/02/2022 12:06 AM CORRESPONDENCE TRANSCRIBER [facility] ([facility]) Comment: Performed By: [facility] [address] [place] [address] Organizational Research Consultant: Ananda Gonzales MD, PhD Blood BLOOD SPECIMEN / Unknown Lab Venipuncture / Unknown 03/30/2022 1:14 PM CORRESPONDENCE TRANSCRIBER 03/30/2022 1:54 PM CORRESPONDENCE TRANSCRIBER Henny Dunne MD LAB - CHEMISTRY ORDNathanael CORRALES Performing Organization Address City/[facility]/ZIP Co de Phone Number [facility]) [address] [place] [address] * CANCER ANTIGEN (CA) 19-9 (03/30/2022 1:14 PM CORRESPONDENCE TRANSCRIBER) Pathologist [facility] CA 19-9 21 <=35 U/mL 03/31/2022 12:19 PM CORRESPONDENCE TRANSCRIBER [facility] ([facility]) Comment: INTERPRETIVE INFORMATION: Cancer Antigen-GI (CA 19-9) This test uses Destiny CA 19-9 electrochemiluminescent immunoassay. Results obtained with different test methods or kits cannot be used interchangeably. CA 19-9 value is useful in monitoring pancreatic, hepatobiliary, gastric, hepatocellular, and colorectal cancer. CA 19-9 value, regardless of level, should not be interpreted as absolute evidence of the presence or absence of malignant disease. Performed By: [facility] [address] [place] [address] Organizational Research Consultant: Ananda Gonzales MD, PhD Blood BLOOD SPECIMEN / Unknown Lab Venipuncture / Unknown 03/30/2022 1:14 PM CORRESPONDENCE TRANSCRIBER 03/30/2022 1:54 PM CORRESPONDENCE TRANSCRIBER Henny Dunne MD LAB - CHEMISTRY ALICIA CORRALES Performing Organization Address [facility] de Phone Number [facility]) [address] [place] [address] * NICOTINE + METABOLITES BLOOD (03/30/2022 1:14 PM CORRESPONDENCE TRANSCRIBER) Only the most recent of2 resultswithin the time period is included. Pathologist [facility] Nicotine 32 ng/mL 04/02/2022 5:23 PM CORRESPONDENCE TRANSCRIBER [facility] ([facility]) Comment: Consistent with use of a nicotine-containing product within 48 hours of specimen collection. Nicotine is metabolized to cotinine. INTERPRETIVE INFORMATION: Nicotine and Metabolites, Serum or Plasma, Quantitative Methodology: Quantitative Liquid Chromatography-Tandem Mass Spectrometry Positive cutoff: 5 ng/mL For medical purposes only; not valid for forensic use. This test is designed to evaluate recent use of nicotine-containing products. Passive and active exposure cannot be discriminated definitively, although a cutoff of 10 ng/mL cotinine is frequently used for surgery qualification purposes. For smoking cessation programs or compliance testing, the absence of expected drug(s) and/or drug metabolite(s) may indicate non-compliance, inappropriate timing of specimen collection relative to drug administration, poor drug absorption, or limitations of testing. This test cannot distinguish between use of tobacco and purified nicotine products. The concentration value must be greater than or equal to the cutoff to be reported as positive. This test was developed and its performance characteristics determined by [facility]. It has not been cleared or approved by the US Food and Drug Administration. This test was performed in a CLIA certified laboratory and is intended for clinical purposes. Performed By: [facility] [address] [place] [address] Organizational Research Consultant: Ananda Gonzales MD, PhD Cotinine 622 ng/mL 04/02/2022 5:23 PM CORRESPONDENCE TRANSCRIBER [facility] ([facility]) Blood BLOOD SPECIMEN / Unknown Lab Venipuncture / Unknown 03/30/2022 1:14 PM CORRESPONDENCE TRANSCRIBER 03/30/2022 1:53 PM CORRESPONDENCE TRANSCRIBER Henny Dunne MD LAB - CHEMISTRY ALICIA CORRALES [facility] Organization Address City/State/ZIP Co de Phone Number [facility]) [address] [place] [address], [facility] * XR CHEST PA AND LATERAL (12/29/2021 10:54 AM CDT) Anatomical Region Laterality Modality Chest Radiographic Joann ging 12/29/2021 11:1 2 AM CDT Impressions 12/29/2021 11:31 AM CDT IMPRESSION: No acute cardiopulmonary process. Report dictated by Alberto Torres MD (resident care spec). I, Stas Shipley MD have personally reviewed and interpreted this examination/study. > Interpreting Provider: Stas Shipley MD on 12/29/2021 11:31 AM Narrative 12/29/2021 11:31 AM CDT PROCEDURE: XR CHEST 2VW, DATE/TIME OF EXAM: 12/29/2021 10:54 AM, LOCATION [facility] INDICATION: Z01.818: Encounter for pre-transplant evaluation for liver transplant B18.2: Chronic hepatitis C without hepatic coma (CMS/HCC) K74.69: Other cirrhosis of liver (CMS/HCC) C22.0: HCC (hepatocellular carcinoma) (CMS/HCC) J44.9: Chronic obstructive pulmonary disease, unspecified COPD type (CMS/HCC) COMPARISON: No recent comparison studies. FINDINGS: The lungs are clear of consolidation. No pleural effusion or pneumothorax. Heart size and mediastinal contours are normal. No acute osseous abnormality. Suture anchors are noted in the left humeral head. Procedure Note Stas Shipley MD - 12/29/2021 PROCEDURE: XR CHEST 2VW, DATE/TIME OF EXAM: 12/29/2021 10:54 AM, LOCATION [facility] INDICATION: Z01.818: Encounter for pre-transplant evaluation for liver transplant B18.2: Chronic hepatitis C without hepatic coma (CMS/HCC) K74.69: Other cirrhosis of liver (CMS/HCC) C22.0: HCC (hepatocellular carcinoma) (CMS/HCC) J44.9: Chronic obstructive pulmonary disease, unspecified COPD type (CMS/HCC) COMPARISON: No recent comparison studies. FINDINGS: The lungs are clear of consolidation. No pleural effusion orpneumothorax. Heart size and mediastinal contours are normal. No acute osseous abnormality. Suture anchors are noted in the left humeral head. IMPRESSION: No acute cardiopulmonary process. Report dictated by Alberto Torres MD (resident care spec). I, Stas Shipley MD have personally reviewed and interpreted this examination/study. > Interpreting Provider: Stas Shipley MD on 12/29/2021 11:31 AM Henny Dunne MD DIAGNOSTIC IMAGING O RDERABLES * XR PANOREX (12/29/2021 10:54 AM CDT) Anatomical Region Laterality Modality Head Radiographic Joann ging 12/29/2021 11:1 3 AM CDT Impressions 12/29/2021 11:27 AM CDT IMPRESSION: No evidence of periapical abscess. Report dictated by Alberto Torres MD (resident care spec). Stas Peralta MD have personally reviewed and interpreted this examination/study. > Interpreting Provider: Stas Shipley MD on 12/29/2021 11:27 AM Narrative 12/29/2021 11:27 AM CDT PROCEDURE: XR PANOREX, DATE/TIME OF EXAM: 12/29/2021 10:54 AM, LOCATION [facility] INDICATION: Z01.818: Encounter for pre-transplant evaluation for liver transplant B18.2: Chronic hepatitis C without hepatic coma (CMS/HCC) K74.69: Other cirrhosis of liver (CMS/HCC) C22.0: HCC (hepatocellular carcinoma) (CMS/HCC) J44.9: Chronic obstructive pulmonary disease, unspecified COPD type (CMS/HCC) COMPARISON: None. FINDINGS: Patient is edentulous. No acute mandibular fracture is identified. Both temporomandibular joints are intact. No periapical abscess is present. Procedure Note Stas Shipley MD - 12/29/2021 PROCEDURE: XR PANOREX, DATE/TIME OF EXAM: 12/29/2021 10:54 AM, LOCATION [facility] INDICATION: Z01.818: Encounter for pre-transplant evaluation for liver transplant B18.2: Chronic hepatitis C without hepatic coma (CMS/HCC) K74.69: Other cirrhosis of liver (CMS/HCC) C22.0: HCC (hepatocellular carcinoma) (CMS/HCC) J44.9: Chronic obstructive pulmonary disease, unspecified COPD type (CMS/HCC) COMPARISON: None. FINDINGS: Patient is edentulous. No acute mandibular fracture is identified. Both temporomandibular joints are intact. No periapical abscess is present. IMPRESSION: No evidence of periapical abscess. Report dictated by Alberto Torres MD (resident care spec). Stas Peralta MD have personally reviewed and interpreted this examination/study. > Interpreting Provider: Stas Shipley MD on 12/29/2021 11:27 AM Henny Dunne MD DIAGNOSTIC IMAGING O RDERABLES * (ABNORMAL) URINALYSIS COMPLETE W MICROSCOPIC (11/02/2021 1:18 PM T) Color UA Yellow Straw, Yellow 11/02/2021 1:46 PM [facility] Clarity UA Clear Clear 11/02/2021 1:46 PM [facility] Specific [place]lette UA 1.013 1.005 - 1.030 11/02/2021 1:46 PM [facility] pH UA 6.0 5.0 - 8.0 pH 11/02/2021 1:46 PM [facility] Protein UA Negative Negative 11/02/2021 1:46 PM [facility] Glucose UA Negative Negative 11/02/2021 1:46 PM [facility] Ketone UA Negative Negative 11/02/2021 1:46 PM [facility] Bilirubin UA Negative Negative 11/02/2021 1:46 PM [facility] Blood UA 2+(A) Negative 11/02/2021 1:46 PM [facility] Nitrite UA Negative Negative 11/02/2021 1:46 PM [facility] Leukocyte Esterase Negative Negative 11/02/2021 1:46 PM [facility] Urobilinogen UA 2.0(A) Negative mg/dL 11/02/2021 1:46 PM [facility] RBC UA 21-50(A) None Seen, 0-2, 3-5 /HPF 11/02/2021 1:46 PM [facility] WBC UA 0-5 None Seen, 0-5 /HPF 11/02/2021 1:46 PM [facility] Squamous Epithelial Cells UA 0-2 None Seen, 0-2, 3-5 /HPF 11/02/2021 1:46 PM [facility] Mucus UA 3+ /LPF 11/02/2021 1:46 PM [facility] Urine URINE SPECIMEN OBTAINED BY CLEAN CATCH PROCEDURE / Unknown Collection / Unknown 11/02/2021 1:18 PM CDT 11/02/2021 1:23 PM [facility] - 11/02/2021 1:46 PM CDT Henny Dunne MD LAB - URINALYSIS ORD ERABLES [facility] [address] [place] [address], [facility] [phone] * BLOOD TYPE ABO+ RH PANEL (11/02/2021 1:18 PM CDT) ABO Rh A POS 11/02/2021 2:1 5 PM CDT [facility] Blood BLOOD SPECIMEN / Unknown Lab Venipuncture / Unknown 11/02/2021 1:18 PM CDT 11/02/2021 1:25 PM CDT Henny Dunne MD LAB - BLOOD BANK ORD ERABLES Performing Organization Address City/[facility]/ZIP Co de Phone Number [facility] LAB [address] [place] [address], [facility] [phone] * HEPATITIS C QUANTITATIVE REFLX GENOTYPE (11/02/2021 1:13 PM CDT) Pathologist [facility] Hepatitis C RNA PCR, Interp Not detected Not detected 11/05/2021 10:00 AM CDT [facility] MICROBIOLOGY Blood BLOOD SPECIMEN / Unknown Lab Venipuncture / Unknown 11/02/2021 1:13 PM CDT 11/02/2021 1:24 PM CDT Narrative [facility] MICRO[facility]OLOGY - 11/05/2021 10:00 AM CDT The Hepatitis C viral (HCV) RNA analysis utilized a serum sample, real-time reverse unix systems administrator PCR, and is reported as Not Detected, Detected (<12 IU/mL), Quantity (IU/mL) or >30,000,000 IU/mL. The limit of quantitation of the assay is 12 IU/mL (100% of samples with this HCV RNA level were detected). The linear range is from 12 IU/mL to 30,000,000 IU/mL. Values less than 12 IU/mL are reported as Detected (<12 IU/mL). Values greater than 30,000,000 IU/mL are reported as >30,000,000 IU/mL. The detection/quantitation of HCV RNA in serum is based on the isolation of HCV RNA with reverse unix systems administrator of genomic HCV RNA followed by real-time PCR in the presence of an unrelated RNA internal control. The internal control ensures that RNA is isolated, and that no general significant inhibitors of the RT-PCR process are present. The analysis was performed using a U.S. FDA approved test methodology. Henny Dunne MD LAB - MICROBIOLOGY O RDERABLES [facility] MICRO[facility] [address] [place] [address], [facility] [phone] * SYPHILIS ANTIBODY CASCADING REFLEX (11/02/2021 1:13 PM CDT) [facility] Treponema pallidum Antibody Non-react ita Non-react ita 11/02/2021 2:40 PM CDT [facility] Comment: No Laboratory evidence of syphilis infection. Note: Circulating antibodies may be low or undetectable in early infection. If recent exposure is suspected, re-draw sample in 2-4 weeks and repeat testing. Blood BLOOD SPECIMEN / Unknown Lab Venipuncture / Unknown 11/02/2021 1:13 PM CDT 11/02/2021 1:24 PM CDT Henny Dunne MD LAB - SEROLOGY ORDER LIZZIE Performing Organization Address City/[facility] Co de Phone Number [facility] [address] [place] [address], [place] [phone] * (ABNORMAL) QUANTIFERON-TB GOLD PLUS 4-TUBE (11/02/2021 1:13 PM CDT) [facility] QuantiFERON NIL 0.11 IU/mL 2 4:34 PM CDT [facility] ([facility]) Comment: Performed By: [facility] [address] [place] [id number] Organizational Research Consultant: Ananda Gonzales MD, PhD QuantiFERON TB Gold Plus Positive (A) Negative 11/06/2021 4:34 PM CDT [facility] [facility] ([facility]) Comment: Interpretive Data: Quantiferon TB Gold Plus Interferon gamma release is measured for specimens from each of the four collection tubes. A qualitative result (Negative, Positive, or Indeterminate) is based on interpretation of the four values, NIL, MITOGEN minus NIL (MITOGEN-NIL), TB1 minus NIL (TB1-NIL), and TB2 minus NIL (TB2-NIL). The NIL value represents nonspecific reactivity produced by the patient specimen. The MITOGEN-NIL value serves as the positive control for the patient specimen, demonstrating successful lymphocyte activity. The TB1-NIL tube specifically detects CD4+ lymphocyte reactivity, specifically stimulated by the TB1 antigens. The TB2-NIL tube detects both CD4+ and CD8+ lymphocyte reactivity, stimulated by TB2 antigens. An overall Negative result does not completely rule out TB infection. A false-positive result in the absence of other clinical evidence of TB infection is not uncommon. Refer to: Updated Guidelines for Using Interferon Gamma Release Assays to Detect Mycobacterium tuberculosis Infection --- [place], 2010 (http://www.cdc.gov/mmwr/preview/mmwrhtml/iu0219y7.htm), for more information concerning test performance in low-prevalence populations and use in occupational screening. QuantiFERON Plus TB1 Minus NIL 0.74(H) 0.00 - 0.34 IU/mL 11/06/2021 4:34 PM CDT [facility] ([facility]) QuantiFERON Plus TB2 Minus NIL 0.41(H) 0.00 - 0.34 IU/mL 11/06/2021 4:34 PM CDT [facility]) QuantiFERON Mitogen Minus NIL >10.00 IU/mL 11/06/2021 4:34 PM CDT [facility]end[facility]) Blood BLOOD SPECIMEN / Unknown Lab Venipuncture / Unknown 11/02/2021 1:13 PM CDT 11/02/2021 1:23 PM CDT Henny Dunne MD LAB - CHEMISTRY ALICIA CORRALES [facility] Organization Address City/State/ZIP Co de Phone Number [facility]) [address] * PTH INTACT ([facility]) (11/02/2021 1:13 PM CDT) [facility] PTH Intact 40.1 8.0 - 77.0 pg/mL 11/02/2021 1:55 PM CDT [facility] Blood BLOOD SPECIMEN / Unknown Lab Venipuncture / Unknown 11/02/2021 1:13 PM CDT 11/02/2021 1:25 PM CDT Henny Dunne MD LAB - CHEMISTRY ORDE SAVANNA Performing Organization Address City/[facility]/ZIP Co de Phone Number [address] [address] [phone] * (ABNORMAL) STRONGYLOIDES ANTIBODY IGG (11/02/2021 1:13 PM CDT) Pathologist [facility] Strongyloides Antibody IgG 1.2(H) <=0.9 IV 11/04/2021 2:41 AM CDT [facility] ([facility]) Comment: INTERPRETIVE INFORMATION: Strongyloides Ab, IgG by RAFAELA 0.9 IV or less....... Negative - No significant level of Strongyloides IgG antibody detected. 1.0 IV................Equivocal - The Strongyloides IgG antibody result is borderline and therefore inconclusive. Recommend retesting the patient in 2-4 weeks, if clinically indicated. 1.1 IV or greater ... Positive - IgG antibodies to Strongyloides detected, which may suggest current or past infection. False-positive results may occur with prior exposure to other helminth infections. Testing low-prevalence populations may also result in false-positive results. Performed By: [facility] [address] [place] [address] Organizational Research Consultant: Ananda Gonzales MD, PhD Blood BLOOD SPECIMEN / Unknown Lab Venipuncture / Unknown 11/02/2021 1:13 PM CDT 11/02/2021 1:24 PM CDT Henny Dunne MD LAB - SEROLOGY ORDER LIZZIE Performing Organization Address City/[facility]/ZIP Co de Phone Number [facility]) [address] * CYTOMEGALOVIRUS ANTIBODY IGG BLOOD (11/02/2021 1:13 PM CDT) Cytomegalovirus Antibody IgG 6.80 U/mL 11/04/2021 12:48 AM CDT [facility] ([facility]) Comment: INTERPRETIVE INFORMATION: Cytomegalovirus Antibody, IgG 0.59 U/mL or less......... Not Detected 0.6 - 0.69 U/mL........... Indeterminate-Repeat testing in 10-14 days may be helpful. 0.70 U/mL or greater...... Detected In immunocompromised patients, CMV serology (IgG or IgM antibody titers) may not be reliable and may be misleading in the diagnosis of acute or reactivation CMV disease. The preferred method for diagnosis is culture of virus and/or demonstration of viral antigen in peripheral white cells (buffy coat), bronchoalveolar lavage (BAL) cells, or tissue biopsies. This test should not be used for blood donor screening, associated re-entry protocols, or for screening Human Cell, Tissues and Cellular and Tissue-Based Products (HCT/P). The best evidence for current infection is a significant change on two appropriately timed specimens, where both tests are done in the same laboratory at the same time. Performed By: [facility] [address] [place] [address] Organizational Research Consultant: Ananda Gonzales MD, PhD Blood BLOOD SPECIMEN / Unknown Lab Venipuncture / Unknown 11/02/2021 1:13 PM CDT 11/02/2021 1:24 PM CDT Henny Dunne MD LAB - CHEMISTRY ALICIA CORRALES [facility]) [address] * RUBELLA ANTIBODY IGG TITER (11/02/2021 1:13 PM CDT) Rubella Antibody IgG 280.0 IU/mL 11/04/2021 12:49 AM CDT [facility] ([facility]) Comment: INTERPRETIVE INFORMATION: Rubella Antibody, IgG Less than 9 IU/mL ........ Not Detected 9 - 9.9 IU/mL ............ Indeterminate-Repeat testing in 10-14 days may be helpful. 10 IU/mL or Greater ...... Detected The best evidence for current infection is a significant change on two appropriately timed specimens, where both tests are done in the same laboratory at the same time. The magnitude of the measured result is not indicative of the amount of antibody present. Performed By: [facility] [address] [place] [address] Organizational Research Consultant: Ananda Gonzales MD, PhD Blood BLOOD SPECIMEN / Unknown Lab Venipuncture / Unknown 11/02/2021 1:13 PM CDT 11/02/2021 1:24 PM CDT Henny Dunne MD LAB - SEROLOGY ORDER LIZZIE [facility]) [address] [place] [address], [facility] * RUBEOLA ANTIBODY IGG (11/02/2021 1:13 PM CDT) [facility] Measles (Rubeola) Antibody IgG >300.0 AU/mL 11/04/2021 12:49 AM CDT [facility] ([facility]) Comment: INTERPRETIVE INFORMATION: Measles (Rubeola) Antibody, IgG 13.4 AU/mL or less........ Negative - No significant level of detectable measles (rubeola) IgG antibody. 13.5-16.4 AU/mL .......... Equivocal - Repeat testing in 10-14 days may be helpful. 16.5 AU/mL or greater .... Positive - IgG antibody to measles (rubeola) detected which may indicate a current or past exposure/immunization to measles (rubeola). The best evidence for current infection is a significant change on two appropriately timed specimens, where both tests are done in the same laboratory at the same time. Performed By: [facility] [address] [place] [address] Organizational Research Consultant: Ananda Gonzales MD, PhD Blood BLOOD SPECIMEN / Unknown Lab Venipuncture / Unknown 11/02/2021 1:13 PM CDT 11/02/2021 1:24 PM CDT Henny Dunne MD LAB - CHEMISTRY ALICIA CORRALES Performing Organization Address [facility] Co de Phone Number [facility] [address] * MUMPS ANTIBODY IGG (11/02/2021 1:13 PM CDT) Mumps Virus Antibody IgG >300.0 AU/mL 11/04/2021 12:49 AM CDT [facility] ([facility]) Comment: INTERPRETIVE INFORMATION: Mumps Ab, IgG by NICCI 8.9 AU/mL or less .... Negative - No significant level of detectable IgG mumps virus antibody 9.0-10.9 AU/mL ....... Equivocal - Repeat testing in 10-14 days may be helpful 11.0 AU/mL or greater: Positive - IgG antibody to mumps virus detected, which may indicate a current or past exposure/ immunization to mumps virus. The best evidence for current infection is a significant change on two appropriately timed specimens, where both tests are done in the same laboratory at the same time. Performed By: [facility] [address] [place] [address] Organizational Research Consultant: Ananda Gonzales MD, PhD Blood BLOOD SPECIMEN / Unknown Lab Venipuncture / Unknown 11/02/2021 1:13 PM CDT 11/02/2021 1:24 PM CDT Henny Dunne MD LAB - CHEMISTRY ALICIA CORRALES Performing Organization Address [facility] Co de Phone Number [facility] ([facility]) [address] * VARICELLA ZOSTER ANTIBODY IGG (11/02/2021 1:13 PM CDT) Varicella zoster Virus Antibody IgG 3726.0 IV 11/04/2021 12:49 AM CDT [facility] ([facility]) Comment: INTERPRETIVE INFORMATION: VZV Ab, IgG 134.9 IV or less ....... Negative - No significant level of detectable IgG varicella-zoster antibody. 135.0 - 164.9 IV ....... Equivocal - Repeat testing in 10-14 days may be helpful. 165.0 IV or greater .... Positive - IgG antibody to varicella-zoster detected, which may indicate a current or past varicella-zoster infection. The best evidence for current infection is a significant change on two appropriately timed specimens, where both tests are done in the same laboratory at the same time. Performed By: [place] [address] Organizational Research Consultant: Ananda Gonzales MD, PhD Blood BLOOD SPECIMEN / Unknown Lab Venipuncture / Unknown 11/02/2021 1:13 PM CDT 11/02/2021 1:24 PM CDT Henny Dunne MD LAB - CHEMISTRY ORDNathanael CORRALES [facility]) [address] [place] [address] * TRANSFERRIN (11/02/2021 1:13 PM CDT) Pathologist [facility] Transferrin 193 174 - 382 mg/dL 11/02/2021 2:21 PM CDT [facility] Blood BLOOD SPECIMEN / Unknown Lab Venipuncture / Unknown 11/02/2021 1:13 PM CDT 11/02/2021 1:24 PM CDT Henny Dunne MD LAB - CHEMISTRY ALICIA CORRALES [address] [address], [facility] [phone] * TOXOPLASMA GONDII ANTIBODY IGG (11/02/2021 1:13 PM CDT) Pathologist [facility] Toxoplasma Antibody IgG <3.0 IU/mL 11/03/2021 1:46 PM CDT [facility] ([facility]) Comment: INTERPRETIVE INFORMATION: Toxoplasma Ab, IgG 7.1 IU/mL or less....... Not Detected 7.2-8.7 IU/mL .......... Indeterminate-Repeat testing in 10-14 days may be helpful. 8.8 IU/mL or greater ... Detected The best evidence for current infection is a significant change on two appropriately timed specimens, where both tests are done in the same laboratory at the same time. This test should not be used for blood donor screening, associated re-entry protocols, or for screening Human Cell, Tissues and Cellular and Tissue-Based Products (HCT/P). The magnitude of the measured result is not indicative of the amount of antibody present. Performed By: [facility] [address] [place] [address] Organizational Research Consultant: Ananda Gonzales MD, PhD Blood BLOOD SPECIMEN / Unknown Lab Venipuncture / Unknown 11/02/2021 1:13 PM CDT 11/02/2021 1:24 PM CDT Henny Dunne MD LAB - CHEMISTRY ORDNathanael CORRALES Performing Organization Address City/[facility]/ZIP Co de Phone Number [facility]) [address] [place] [address] * (ABNORMAL) TERESITA-ARIAS VIRUS ANTIBODY TO VCA IGG (11/02/2021 1:13 PM CDT) [facility] Teresita-Arias Virus Antibody IgG Viral Capsid Antigen 36.8(H) 0.0 - 21.9 U/mL 11/04/2021 12:50 AM CDT [facility] ([facility]) Comment: INTERPRETIVE INFORMATION: Teresita-Arias Virus Antibody to Viral Capsid Antigen, IgG 17.9 U/mL or less.......Not Detected 18.0-21.9 U/mL..........Indeterminate - Repeat testing in 10-14 days may be helpful. 22.0 U/mL or greater....Detected Performed By: [facility] [address] [place] [address] Organizational Research Consultant: Ananda Gonzales MD, PhD Blood BLOOD SPECIMEN / Unknown Lab Venipuncture / Unknown 11/02/2021 1:13 PM CDT 11/02/2021 1:24 PM CDT Henny Dunne MD LAB - CHEMISTRY ALICIA CORRALES Performing Organization Address City/[facility]/ZIP Co de Phone Number [facility] ([facility]) [address] * HEMOGLOBIN A1C (11/02/2021 1:13 PM CDT) Pathologist [facility] Hemoglobin A1c 4.3 <=5.6 % 11/02/2021 4:08 PM CDT [facility] Estimated Average Glucose 77 mg/dL 11/02/2021 4:08 PM CDT [facility] Comment: HbA1c Interpretation: Normal : < 5.7% Pre-diabetes: 5.7-6.4% Diabetes: Equal to or greater than 6.5% Test results diagnostic of diabetes should be repeated for confirmation. Treatment target values recommended by ADA and other clinical organizations should be used to evaluate metabolic control in patients. Reference: [place] [employer], Standards of Care in Diabetes -2020 In patients 70 years and older consider HbA1c target range of 7.0-7.5% (Reference: Bryson Overton et al. JAMDA. 2012) The Sebia assay for the measurement of HbA1c is a National Glycohemoglobin Standardization Program (NGSP) certified method. Blood BLOOD SPECIMEN / Unknown Lab Venipuncture / Unknown 11/02/2021 1:13 PM CDT 11/02/2021 1:25 PM CDT Henny Dunne MD LAB - CHEMISTRY ORDE SAVANNA [facility] [address] [place] [address], [facility] [phone] * TYPE + SCREEN PANEL (11/02/2021 1:13 PM CDT) Only the most recent of3 resultswithin the time period is included. Pathologist [facility] Antibody Screen NEG 2:15 PM CDT [facility] ABO Rh A POS 11/02/2021 2:15 PM CDT [facility] Blood Bank BLOOD SPECIMEN / Unknown Lab Venipuncture / Unknown 11/02/2021 1:13 PM CDT 11/02/2021 1:25 PM CDT Henny Dunne MD LAB - BLOOD BANK ORD ERABLES [facility] [address] [place] [address], [place] [phone] * PROSTATE SPECIFIC ANTIGEN SCREEN (11/02/2021 1:13 PM CDT) PSA Total 0.3 0.0 - 4.0 ng/mL 11/02/2021 2:10 PM CDT [facility] Blood BLOOD SPECIMEN / Unknown Lab Venipuncture / Unknown 11/02/2021 1:13 PM CDT 11/02/2021 1:25 PM CDT Henny Dunne MD LAB - CHEMISTRY ORDNathanael CORRALES Performing Organization Address [facility]/ZIP Co de Phone Number [facility] [address] [address], [facility] [phone] * PHOSPHORUS BLOOD (11/02/2021 1:13 PM CDT) Phosphorus 3.2 2.8 - 5.1 mg/dL 11/02/2021 1:49 PM CDT [facility] Blood BLOOD SPECIMEN / Unknown Lab Venipuncture / Unknown 11/02/2021 1:13 PM CDT 11/02/2021 1:25 PM CDT Henny Dunne MD LAB - CHEMISTRY ALICIA CORRALES Performing Organization Address [facility]/ZIP Co de Phone Number [address] [address], [place] [phone] * (ABNORMAL) IRON BLOOD (11/02/2021 1:13 PM CDT) Iron 241(H) 50 - 175 ug/dL 11/02/2021 2:21 PM CDT [facility] Blood BLOOD SPECIMEN / Unknown Lab Venipuncture / Unknown 11/02/2021 1:13 PM CDT 11/02/2021 1:24 PM CDT Henny Dunne MD LAB - CHEMISTRY ALICIA CORRALES [facility] [address] [place] [address], [facility] [phone] * ALCOHOL ETHYL BLOOD (11/02/2021 1:13 PM CDT) [facility] Ethanol (mg/dL) <10 <=10 mg/dL 1:49 PM CDT [facility] Ethanol Calculated (g/dL) <0.010 <0.010 g/dL 11/02/2021 1:49 PM CDT [facility] Blood BLOOD SPECIMEN / Unknown Lab Venipuncture / Unknown 11/02/2021 1:13 PM CDT 11/02/2021 1:25 PM CDT Narrative [facility] - 11/02/2021 1:49 PM CDT Ethanol Interp <10: None Detected. Depression of HOUSE MOTHER: >100 mg/dl Potentially Critical: >250 mg/dl Potentially Fatal >400 mg/dl Ethanol in the patient's blood will contribute to the osmolar gap. Ethanol's contribution to the osmolar gap can be estimated by dividing the concentration of ethanol in mg/dL by 4.6. This test is for clinical use only and does not equal a POONAM for legal purposes. Henny Dunne MD LAB - CHEMISTRY ALICIA CORRALES [facility] [address] [place] [address], [facility] [phone] * (ABNORMAL) HEPATITIS C ANTIBODY (11/02/2021 1:13 PM CDT) [facility] Hepatitis C Antibody Reactive( A) Non-react ita 11/02/2021 2:44 PM CDT [facility] Comment:Hepatitis C Antibody screen is consistent with [...] Dunne MD LAB - CHEMISTRY ALICIA CORRALES [address] [address], [place] [phone] * (ABNORMAL) FERRITIN (11/02/2021 1:13 PM CDT) Only the most recent of2 resultswithin the time period is included. Ferritin 551(H) 22 - 275 ng/mL 11/02/2021 2:40 PM CDT [facility] Blood BLOOD SPECIMEN / Unknown Lab Venipuncture / Unknown 11/02/2021 1:13 PM CDT 11/02/2021 1:24 PM CDT Henny Dunne MD LAB - CHEMISTRY ALICIA CORRALES Performing Organization Address City/[facility]/ZIP Co de Phone Number [address] [address], [place] [phone] * (ABNORMAL) LIPID PROFILE (11/02/2021 1:13 PM CDT) Cholesterol Total 100 <200 mg/dL 11/02/2021 1:49 PM CDT [facility] HDL 28(L) >40 mg/dL 11/02/2021 1:49 PM CDT [facility] Comment: ATP III Classification of HDL Cholesterol: <40 mg/dL: Considered a major risk factor. >60 mg/dL: Considered a negative risk factor. LDL Calculated 59 <100 mg/dL 11/02/2021 1:49 PM CDT [facility] Comment: ATP III Classification of LDL Cholesterol: <100 mg/dL: Optimal 100 - 129 mg/dL: Near Optimal/Above Optimal 130 - 159 mg/dL: Borderline High 160 - 189 mg/dL: High >190 mg/dL: Very High Triglycerides 63 <150 mg/dL 11/02/2021 1:49 PM CDT [facility] Comment: ATP III Classification of Triglycerides: <150 mg/dL: Normal 150 - 199 mg/dL: Borderline High 200 - 400 mg/dL: High >500 mg/dL: Very High Blood BLOOD SPECIMEN / Unknown Lab Venipuncture / Unknown 11/02/2021 1:13 PM CDT 11/02/2021 1:25 PM CDT Henny Dunne MD LAB - CHEMISTRY ORDE RABDUYEN Performing Organization Address City/[facility]/ZIP Co de Phone Number [facility] [address] [place] [address], [facility] [phone] * PREPARE PLATELET PHERESIS UNIT(S), 1 Units (10/08/2021 1:17 AM CDT) Only the most recent of2 resultswithin the time period is included. Unit Description N/A [facility] Blood Bank BLOOD SPECIMEN / Unknown 10/07/2021 9:54 AM CDT Mickey Landaverde MD LAB - BLOOD BANK ORD ERANILO Performing Organization Address [facility]/[place] Co de Phone Number [facility] [address] [place] [address], [place] [phone] * CT MICROWAVE ABLATION (10/07/2021 11:56 AM CDT) Anatomical Region Laterality Modality Computed Tomogra phy 10/07/2021 1:50 PM CDT Impressions 10/14/2021 4:23 PM CDT Impression: Successful ultrasound-guided thermal ablation of a hepatic segment 7 LR 5 observation, as described above. Follow-up: The patient will be contacted by IR to schedule follow-up MRI of the liver in 6-8 weeks and subsequent IR clinic visit after imaging is obtained. I, Dr. Marmolejo was present and performed/supervised the entire procedure. Dictated by Avel Ramos MD (Direct Care Staffer) Dr. DOMENICA Peralta M.D. have personally reviewed and interpreted this examination/study. This report was electronically signed by DOMENICA MARMOLEJO M.D. on 10/14/2021 4:23 PM . Narrative 10/14/2021 4:23 PM CDT History: 60-year-old male with history of hepatitis C cirrhosis with a 2.3 cm LR5 lesion within hepatic segment 7. Operators: 1.Dr. Marmolejo, Attending Physician 2.Dr. Ramos Resident Physician Anesthesia: 1.Local anesthesia - 10 mL of 1% lidocaine 2.General anesthesia per the anesthesiology team Procedure: 1.Limited ultrasound evaluation of the liver. 2.Ultrasound-guided thermal ablation of a hepatic segment 7 LR 5. Procedure in detail: The procedure, risks, and possible complications were explained to the patient in detail, and informed consent was obtained. The patient was placed in a supine position on the CT table. The patient was given general anesthesia and monitored by the anesthesiology team throughout the procedure. Limited ultrasound evaluation was performed and showed a circumscribed, hypoechoic lesion within the right hepatic lobe. A percutaneous entry site was marked on the patient's skin. The marked site and skin around the region of interest was prepped and draped in sterile fashion. Local anesthesia was provided with 1% Lidocaine. A 17-gauge CellCentric VA-15 microwave probe was advanced in stages under ultrasound guidance and deployed across the lesion. After confirming the position of the probe, ablation was performed as per protocol (10 minutes at 65W for an ablation zone of 4.65 x 3.06 cm). An overlapping session was also performed. The probe was retrieved after ablating the tract. Sterile dressing was applied. Procedure Note Domenica Marmolejo MD - 10/14/2021 History: 60-year-old male with history of hepatitis C cirrhosis with a2.3 cm LR5 lesion within hepatic segment 7. Operators: 1.Dr. Marmolejo, Attending Physician 2.Resident Kalin Physician Anesthesia: 1.Local anesthesia - 10 mL of 1% lidocaine 2.General anesthesia per the anesthesiology team Procedure: 1.Limited ultrasound evaluation of the liver. 2.Ultrasound-guided thermal ablation of a hepatic segment 7 LR 5. Procedure in detail: The procedure, risks, and possible complications were explained to the patient in detail, and informed consent was obtained. The patient was placed in a supine position on the CT table. The patient was givengeneral anesthesia and monitored by the anesthesiology team throughout the procedure. Limited ultrasound evaluation was performed and showed a circumscribed, hypoechoic lesion within the right hepatic lobe. A percutaneous entrysite was marked on the patient's skin. The marked site and skin around the region of interest was prepped and draped in sterile fashion. Local anesthesia was provided with 1% Lidocaine. A 17-gauge CellCentric VA-15 microwave probe was advanced instages under ultrasound guidance and deployed across the lesion. Afterconfirming the position of the probe, ablation was performed as per protocol (10 minutes at 65W for an ablation zone of 4.65 x 3.06 cm). An overlapping session was also performed. The probe was retrieved after ablating the tract. Sterile dressing was applied. Impression: Successful ultrasound-guided thermal ablation of a hepatic segment 7 LR 5 observation, as described above. Follow-up: The patient will be contacted by IR to schedule follow-up MRI of the liver in 6-8 weeks and subsequent IR clinic visit after imagingis obtained. IDr. Marmolejo was present and performed/supervised the entireprocedure. Dictated by Avel Ramos MD (Direct Care Staffer) Dr. DOMENICA Peralta M.D. have personally reviewed and interpreted this examination/study. This report was electronically signed by DOMENICA MARMOLEJO M.D. on10/14/2021 4:23 PM . Asa Berman MD CT ORDERABLES * ETT LINE PERFORMABLE (10/07/2021 11:36 AM CDT) Narrative Yulisa Diamond APRN-CRNA - 10/07/2021 11:36 AM CDT Yulisa Diamond APRN-CRNA 10/07/2021 11:39 AM Endotracheal Tube Placement: Patient Location: OR. Intubation Event Date/Time: 10/07/2021 11:27 AM Procedure: intubation ([id number]). Procedure Section: Sedation: under general anesthesia. Indications for Airway Management: anesthesia Procedure pretreatments used? No Induction: standard IV Mask Ventilation: easy. Blade Type: Baker Blade Size: 2 Laryngoscopy View: grade 1 (full cords) Intubation Adjuncts: cricoid pressure and stylet Nasal Airway Size: 8 Tube: endotracheal tube Placement: oral Tube type: cuff - inflated Tube Size (MM): 8 Depth of Insertion (CM): 21 Measured From: lips Cuff volume (mL): 8 Cuff Inflated With: air Number of Attempts: 2. Ventilation between attempts: No. Placement Verified By: direct visualization, bilateral breath sounds, chest auscultation and CO2 monitor Tube secured with: adhesive tape. Dentition unchanged? Yes Difficult Airway? No. Procedure Start Time: 10/07/2021 11:27 AM. Staff Section Anesthesia Provider: Yulisa Diamond APRN-CRNA, Performed the procedure Provider #1: Mickey Landaverde MD. Additional Comments: Anterior airway. Large tongue and epiglottis.. Mickey Landaverde MD GENERAL ANESTHESIA O RDERABLES * IV PLACEMENT PERFORMABLE (10/07/2021 11:31 AM CDT) Narrative Yulisa Diamond APRN-CRNA - 10/07/2021 11:31 AM CDT Yulisa Diamond APRN-CRNA 10/07/2021 11:34 AM Peripheral IV Line Placement: Patient Location: OR Procedure: IV start ([id number]). Procedure Section: Skin Prep: alcohol. Orientation: right Location: forearm Local Anesthetic Used? No Brand Name: Quinones. Catheter Gauge: 18 Catheter Length (in): 1.25 Number of Attempts: 1. Procedure Tolerance: performed while patient under general anesthesia. Procedure Start Time: 10/07/2021 11:28 AM. Procedure End Time: 10/07/2021 11:29 AM. Procedure Total Time: 1 minutes. Staff Section Anesthesia Provider: Mickey Landaverde MD, Performed the procedure Provider #1: Yulisa Diamond APRN-CRNA. Mickey Landaverde MD GENERAL ANESTHESIA O RDERABLES * (ABNORMAL) CBC W/O DIFFERENTIAL (10/07/2021 9:43 AM CDT) Only the most recent of3 resultswithin the time period is included. WBC 2.9(L) 3.5 - 10.5 10 3/uL 10/07/2021 9:58 AM [facility] RBC 2.49(L) 4.30 - 5.70 10 6/uL 10/07/2021 9:58 AM [facility] Hemoglobin 10.7(L) 12.0 - 17.6 g/dL 10/07/2021 9:58 AM [facility] Hematocrit 31.1(L) 35.2 - 51.7 % 10/07/2021 9:58 AM [facility] MCV 124.9(H) 80.7 - 98.3 fL 10/07/2021 9:58 AM CDT [facility] MCH 43.0(H) 26.7 - 34.0 pg 10/07/2021 9:58 AM T [facility] MCHC 34.4 30.8 - 35.9 g/dL 10/07/2021 9:58 AM T [facility] Platelet Count 34(L) 150 - 400 10 3/uL 10/07/2021 9:58 AM [facility] Comment:Checked by periphera l smear. RDW-SD 70.2(H) 36.0 - 50.0 fL 10/07/2021 9:58 AM [facility] RDW-CV 15.2(H) 11.2 - 14.8 % 10/07/2021 9:58 AM [facility] MPV 10.4 9.4 - 12.9 fL 10/07/2021 9:58 AM [facility] nRBC Absolute 0.00 0 10 3/uL 10/07/2021 9:58 AM [facility] nRBC Auto 0.0 0 /100 WBC 10/07/2021 9:58 AM [facility] Blood BLOOD SPECIMEN / Unknown Venipuncture / Unknown 10/07/2021 9:43 AM CDT 10/07/2021 9:51 AM CDT Domenica Marmolejo MD LAB - HEMATOLOGY ORD ERABLES Performing Organization Address City/State/[place] Co de Phone Number [facility] [address] [place] [address] [phone] * (ABNORMAL) CYTOPLASMIC PATTERN (09/02/2021 1:07 PM CDT) Cytoplasmic Pattern Titer 1:80(A) 09/15/2021 6:24 PM CDT [facility] ([facility]) Cytoplasmic Pattern AMA(A) 09/15/2021 6:24 PM CDT [facility] ([facility]) Comment: Performed By: [facility] [address] [place] [id number] Organizational Research Consultant: Paige Wiseman MD Blood BLOOD SPECIMEN / Unknown Lab Venipuncture / Unknown 09/02/2021 1:07 PM CDT 09/02/2021 1:28 PM CDT Henny Dunne MD LAB - CHEMISTRY ALICIA CORRALES Performing Organization Address [facility]/ZIP Co de Phone Number [facility] ([facility]) [address] [place] [address] * (ABNORMAL) LYDIA BLOOD SINGLE PATTERN (09/02/2021 1:07 PM CDT) LYDIA Pattern Speckled( A) 09/15/2021 6:24 PM CDT [facility] ([facility]) LYDIA Titer 1:80(A) 09/15/2021 6:24 PM CDT [facility] ([facility]) Comment: Performed By: [facility] [address] [place] [address] Organizational Research Consultant: Paige Wiseman MD Blood BLOOD SPECIMEN / Unknown Lab Venipuncture / Unknown 09/02/2021 1:07 PM CDT 09/02/2021 1:28 PM CDT Henny Dunne MD LAB - CHEMISTRY ALICIA CORRALES Performing Organization Address [facility]/[place] Co de Phone Number [facility] ([facility]) [address] [place] [address] * (ABNORMAL) LYDIA HEP-2 IGG BY IFA (09/02/2021 1:07 PM CDT) LYDIA HEp-2 IgG Detected (H) <1:80 09/15/2021 6:24 PM CDT [facility] ([facility]) LYDIA Interpretive Comment See Note 09/15/2021 6:24 PM CDT [facility] ([facility]) Comment: Speckled Pattern Clinical associations: SLE, SSc, SjS, DM, PM, MCTD, UCTD. May also be found in healthy individuals Main autoantibodies: Anti-SSA-52 (Ro52), anti-SSA-60 (Ro60), anti-SS-B/LA, anti-Julio-1 (anti-Scl-70), Sandhu, anti-U1-MACHINE II ENGRAVER, anti-U2-MACHINE II ENGRAVER, anti-Mi-2, anti-p155/140 (TIF1g), anti-Ku, anti-RNA polymerase, anti-DFS70/LEDGF-P75 Cytoplasmic reticular/AMA pattern Clinical Associations: PBC, SSc, PBC-SSc overlap syndrome, and PBC-SjS overlap syndrome Main autoantibodies: Anti-mitochondrial antibody List of Abbreviations Antisynthetase syndrome (ARS), chronic active hepatitis (CAH), inflammatory myopathies (IM) [dermatomyositis (DM), polymyositis (PM), necrotizing autoimmune myopathy (NAM)], interstitial lung disease (ILD), juvenile idiopathic arthritis (NARESH), mixed connective tissue disease (MCTD), primary biliary cholangitis (PBC), rheumatoid arthritis (RA), systemic autoimmune rheumatic diseases (SARD), Sjogren syndrome (SjS), systemic lupus erythematosus (SLE), systemic sclerosis (SSc), undifferentiated connective tissue disease (UCTD). INTERPRETIVE INFORMATION: LDYIA Interpretive Comment Presence of antinuclear antibodies (LYDIA) is a hallmark feature of systemic autoimmune rheumatic diseases (SARD). However, LYDIA lacks diagnostic specificity and is associated with a variety of diseases (cancers, autoimmune, infectious, and inflammatory conditions) and may also occur in healthy individuals in varying prevalence. The lack of diagnostic specificity requires confirmation of positive LYDIA by more specific serologic tests. LYDIA (nuclear reactivity) positive patterns reported include centromere, homogeneous, nuclear dots, nucleolar, or speckled. LYDIA (cytoplasmic reactivity) positive patterns reported include reticular/AMA, discrete/GW body-like, polar/golgi-like, cytoplasmic speckled or rods and rings. All positive patterns are reported to endpoint titers (1:2560). Reported patterns may help guide differential diagnosis, although they may not be specific for individual antibodies or diseases. Mitotic staining patterns not reported. Negative results do not necessarily rule out SARD. Performed By: [facility] [address] [place] [address] Organizational Research Consultant: Paige Wiseman MD Blood BLOOD SPECIMEN / Unknown Lab Venipuncture / Unknown 09/02/2021 1:07 PM CDT 09/02/2021 1:28 PM CDT Henny Dunne MD LAB - SEROLOGY ORDER [facility]) [address] * (ABNORMAL) SMOOTH MUSCLE ANTIBODY W REFLEX TITER (09/02/2021 1:07 PM CDT) F-Actin Antibody IgG 26(H) 0 - 19 Units 09/04/2021 12:05 AM CDT [facility] ([facility]) Comment: REFERENCE INTERVAL: F-Actin (Smooth Muscle) Antibody, IgG by RAFAELA 19 Units or less ....... Negative 20 - 30 Units .......... Weak Positive-Suggest repeat testing in two to three weeks with fresh specimen. 31 Units or greater..... Positive-Suggestive of autoimmune hepatitis type 1 or chronic active hepatitis. F-actin IgG antibodies have been shown to have increased sensitivity for autoimmune hepatitis (AIH) but lower specificity than smooth muscle antibodies (SMA). F-actin IgG antibodies can also be seen in SMA-negative disease controls (non-AIH), especially in patients with primary biliary cirrhosis and chronic hepatitis C infections. Some patients with AIH may be SMA-positive but negative for F-actin IgG. Consider testing for SMA by IFA if suspicion for AIH is strong. Performed By: [facility] [address] [place] [address] Organizational Research Consultant: Paige Wiseman MD Blood BLOOD SPECIMEN / Unknown Lab Venipuncture / Unknown 09/02/2021 1:07 PM CDT 09/02/2021 1:28 PM CDT Henny Dunne MD LAB - SEROLOGY ORDER LI[facility]IE [facility]) [address] * (ABNORMAL) MITOCHONDRIAL ANTIBODY SCREEN (09/02/2021 1:07 PM CDT) Only the most recent of2 resultswithin the time period is included. Mitochondrial M2 Antibody 46.8(H) 0.0 - 24.9 Units 09/04/2021 12:05 AM CDT [facility] ([facility]) Comment: REFERENCE INTERVAL: Mitochondrial (M2) Antibody, IgG 20.0 Units or less ......... Negative 20.1 - 24.9 Units........... Equivocal 25.0 Units or greater....... Positive Anti-mitochondrial antibodies (AMA) are thought to be present in 90-95% of patients with primary biliary cholangitis (PBC). However, the frequency of detected antibodies may be cohort or assay dependent, as lower sensitivities have been reported. Not all PBC patients are positive for AMA; some patients may be positive for SP100 and/or GP210 antibodies. A negative result does not rule out PBC. Performed By: [facility] [address] [place] [address] Organizational Research Consultant: Paige Wiseman MD Blood BLOOD SPECIMEN / Unknown Lab Venipuncture / Unknown 09/02/2021 1:07 PM CDT 09/02/2021 1:28 PM CDT Henny Dunne MD LAB - CHEMISTRY ORDNathanael CORRALES Performing Organization Address [facility]/[place] Co de Phone Number [facility]) [address] [place] [address] * (ABNORMAL) SMOOTH MUSCLE ANTIBODY TITER (09/02/2021 1:07 PM CDT) Smooth Muscle Antibody IgG Titer 1:160(H) <1:20 09/04/2021 9:02 PM CDT [facility] ([facility]) Comment: INTERPRETIVE INFORMATION: Smooth Muscle Ab, IgG Titer Less than 1:20 ........ Negative - No antibody detected. 1:20 - 1:80 .......... Weak Positive - Suggest repeat in two to three weeks with fresh specimen. 1:160 or greater ...... Positive - Suggestive of autoimmune hepatitis or chronic active hepatitis. Performed By: [facility] [address] [place] [address] Organizational Research Consultant: Paige Wiseman MD Blood BLOOD SPECIMEN / Unknown Lab Venipuncture / Unknown 09/02/2021 1:07 PM CDT 09/02/2021 1:28 PM CDT Henny Dunne MD LAB - CHEMISTRY ORDNathanael CORRALES Performing Organization Address [facility]/[place] Co de Phone Number [facility] ([facility]) [address] [place] [address], [facility] * HEPATITIS C GENOTYPE (09/02/2021 1:07 PM CDT) Only the most recent of2 resultswithin the time period is included. Hepatitis C Genotype Indeterminate 09/05/2021 1:39 PM CDT [facility] ([facility]) Comment: INTERPRETIVE INFORMATION: Hepatitis C Genotyping Hepatitis C Viral RNA is tested using reverse unix systems administrator polymerase chain reaction (RT-PCR) to amplify a specific portion of the 5' untranslated region (5' UTR) of the viral genome. The amplified nucleic acid is sequenced bi-directionally using dye-terminator chemistry ([employer]). Sequencing data is compared to a database of characterized sequences. Isolates of hepatitis C virus are grouped into six major genotypes (1-6). These genotypes are subtyped according to sequence characteristics. Due to high conservation of the 5' un-translated region of the HCV genome, this test has limitations in differentiating subtype 1a from 1b. Therefore, these subtypes will be reported as 1a or 1b. In rare instances, Type 6 virus may be misclassified as Type 1. This test was developed and its performance characteristics determined by [facility]. It has not been cleared or approved by the [place] Food and Drug Administration. This test was performed in a CLIA certified laboratory and is intended for clinical purposes. Hepatitis C GENOTYPING IS INDETERMINATE. This test may be unsuccessful if the HCV RNA viral load is less than log 3.6 or 4000 IU per mL. Repeat testing may be appropriate if and when the viral load becomes greater than log 3.6 or 4000 IU/mL. In addition to low viral load, other conditions, such as PCR inhibitors, viral genetic variation, etc., may cause RT-PCR failure resulting in an indeterminate result. Performed By: [facility] [address] [place] [address] Organizational Research Consultant: Paige Wiseman MD Blood BLOOD SPECIMEN / Unknown Lab Venipuncture / Unknown 09/02/2021 1:07 PM CDT 09/02/2021 1:28 PM CDT Henny Dunne MD LAB - CHEMISTRY ALICIA CORRALES [facility] ([facility]) [address] [place] [address], [facility] * HEPATITIS C RNA QUANTITATIVE (09/02/2021 1:07 PM CDT) Only the most recent of2 resultswithin the time period is included. [facility] Hepatitis C RNA PCR, Interp Not detected Not detected 09/03/2021 1:20 PM CDT [facility] Blood BLOOD SPECIMEN / Unknown Lab Venipuncture / Unknown 09/02/2021 1:07 PM CDT 09/02/2021 1:28 PM CDT Narrative [facility] MICRO[facility]OLOGY - 09/03/2021 1:20 PM CDT The Hepatitis C viral (HCV) RNA analysis utilized a serum sample, real-time reverse unix systems administrator PCR, and is reported as Not Detected, Detected (<12 IU/mL), Quantity (IU/mL) or >30,000,000 IU/mL. The limit of quantitation of the assay is 12 IU/mL (100% of samples with this HCV RNA level were detected). The linear range is from 12 IU/mL to 30,000,000 IU/mL. Values less than 12 IU/mL are reported as Detected (<12 IU/mL). Values greater than 30,000,000 IU/mL are reported as >30,000,000 IU/mL. The detection/quantitation of HCV RNA in serum is based on the isolation of HCV RNA with reverse unix systems administrator of genomic HCV RNA followed by real-time PCR in the presence of an unrelated RNA internal control. The internal control ensures that RNA is isolated, and that no general significant inhibitors of the RT-PCR process are present. The analysis was performed using a U.S. FDA approved test methodology ([employer] Real Time HCV). Henny Dunne MD LAB - CHEMISTRY ALICIA CORRALES [facility] MICROBIOLOGY [address] [place], [place] [address], [facility] [phone] * (ABNORMAL) LYDIA BLOOD SCREEN W/REFLEX TITER (09/02/2021 1:07 PM CDT) Only the most recent of2 resultswithin the time period is included. [facility] LYDIA IgG Detected (A) None Detected 09/04/2021 12:23 AM CDT [facility] ([facility]) Comment: Antibodies to Anti-Nuclear Antibodies (LYDIA) detected. Additional testing to follow. INTERPRETIVE INFORMATION: Anti-Nuclear Antibodies (LYDIA), IgG by RAFAELA Antinuclear Antibodies (LYDIA), IgG by RAFAELA: LYDIA specimens are screened using enzyme-linked immunosorbent assay (RAFAELA) methodology. All RAFAELA results reported as Detected are further tested by indirect fluorescent assay (IFA) using HEp-2 substrate with an IgG-specific conjugate. The LYDIA RAFAELA screen is designed to detect antibodies against dsDNA, histones, SS-A (Ro), SS-B (La), Sandhu, Sandhu/MACHINE II ENGRAVER, Scl-70, Calista-1, centromeric proteins, other antigens extracted from the HEp-2 cell nucleus. LYDIA RAFAELA assays have been reported to have lower sensitivities than LYDIA IFA for systemic autoimmune rheumatic diseases (SARD). Negative results do not necessarily rule out SARD. Performed By: [facility] [address] [place] [address] Organizational Research Consultant: Paige Wiseman MD Blood BLOOD SPECIMEN / Unknown Lab Venipuncture / Unknown 09/02/2021 1:07 PM CDT 09/02/2021 1:28 PM CDT Henny Dunne MD LAB - CHEMISTRY ALICIA CORRALES [facility]) [address] [place] [address], [facility] * HEPATITIS B SURFACE ANTIBODY (09/02/2021 1:07 PM CDT) Only the most recent of2 resultswithin the time period is included. [facility] Hepatitis B Virus Surface Antibody Non-react ita Non-react ita 09/02/2021 2:12 PM CDT [facility] Comment: < 8 mIU/mL Hepatitis B surface Antibody (HBsAb). Nonreactive for HBsAb - individual is considered not immune to Hepatitis B Virus infection. Hepatitis B Surface Antibody Quantitative 0.0 <8.0 mIU/mL 09/02/2021 2:12 PM CDT [facility] Comment: Hepatitis B Surface Antibody Numeric Result Interpretation: Nonreactive: <8.0 mIU/mL Indeterminate: 8.0 - 12.0 mIU/mL Reactive: >12.0 mIU/mL Blood BLOOD SPECIMEN / Unknown Lab Venipuncture / Unknown 09/02/2021 1:07 PM CDT 09/02/2021 1:28 PM CDT Henny Dunne MD LAB - CHEMISTRY ALICIA CORRALES Performing Organization Address City/[facility]/ZIP Co de Phone Number [address] [address], [place] [phone] * HEPATITIS B CORE ANTIBODY (09/02/2021 1:07 PM CDT) Only the most recent of2 resultswithin the time period is included. HBc Antibody Total Non-reacti ve Non-reacti ve 09/02/2021 2:12 PM CDT [facility] Blood BLOOD SPECIMEN / Unknown Lab Venipuncture / Unknown 09/02/2021 1:07 PM CDT 09/02/2021 1:28 PM CDT Henny Dunne MD LAB - CHEMISTRY ALICIA CORRALES Performing Organization Address City/[facility]/ZIP Co de Phone Number [address] [address], [place] [phone] * HEPATITIS B SURFACE ANTIGEN W RFLX CONFIRMATION (09/02/2021 1:07 PM CDT) Only the most recent of2 resultswithin the time period is included. Hepatitis B Virus Surface Antigen Non-reacti ve Non-reacti ve 09/02/2021 2:12 PM CDT [facility] Blood BLOOD SPECIMEN / Unknown Lab Venipuncture / Unknown 09/02/2021 1:07 PM CDT 09/02/2021 1:28 PM CDT Henny Dunne MD LAB - CHEMISTRY ALICIA CORRALES [address] [address], [place] [phone] * (ABNORMAL) IGG BLOOD (09/02/2021 1:07 PM CDT) Pathologist [facility] IgG 2,674(H) 767 - 1,590 mg/dL 09/02/2021 3:19 PM CDT [facility] Blood BLOOD SPECIMEN / Unknown Lab Venipuncture / Unknown 09/02/2021 1:07 PM CDT 09/02/2021 1:28 PM CDT Henny Dunne MD LAB - CHEMISTRY ORDNathanael CORRALES [facility] [address] [place] [address], [facility] [phone] * (ABNORMAL) HEPATITIS A ANTIBODY (09/02/2021 1:07 PM CDT) Only the most recent of2 resultswithin the time period is included. [facility] Hepatitis A Virus Antibody Total Positive( A) Negative 09/03/2021 5:24 PM CDT [employer] ([facility]) Comment: The positive anti-HAV is consistent with recent or remote Hepatitis A infection or antibody response to HAV vaccination. False positive anti-HAV can occur. Performed by [facility], [address] [place], [place] [id number] [email or web address], Paige Wiseman MD, Lab. Director Blood BLOOD SPECIMEN / Unknown Lab Venipuncture / Unknown 09/02/2021 1:07 PM CDT 09/02/2021 1:28 PM CDT Henny Dunne MD LAB - CHEMISTRY ALICIA CORRALES [employer] [facility] ([facility]) [address] [place] [address], [facility] * CREATININE BLOOD - POCT (IP) [facility] (10/17/2015) Pathologist [facility] Creatinine POCT 1.00 0.3 - 1.3 mg/dL [facility] eGFR POCT 60 60 ml/min [facility] 10/17/2015 Acosta Vieyra MD LAB - POINT OF CARE ORDERABLES [facility] * HEPATITIS C GENOTYPE 1 NS5A DRUG RESISTANCE (09/04/2015 11:04 AM CDT) [facility] Hepatitis C Virus NS5A Resistance Assay PDF . [facility] Hepatitis C Virus NS5A Drug Resistance Comment [facility] ([facility]) Comment: HCV GenoSure(TM) NS5A Comments: NS5A RAVs at position(s) 28, 30, 31 or 93 NOT DETECTED. If considering an NS5A inhibitor-containing regimen, please refer to the prescribing information, or current guidelines, to determine the appropriate treatment regimen and duration. HCV Genotype: 1a Drug Brand/ Genotypic Generic Name Regimen Assessment Comments -------- NS5AI Daclatasvir Daklinza None/Undetermined NS5A RAVs*: None Elbasvir Zepatier None/Undetermined NS5A RAVs*: None Ledipasvir Harvoni None/Undetermined NS5A RAVs*: None Ombitasvir Viekira Lorne None/Undetermined NS5A RAVs*: None *RAVs = Resistance Associated Variants detected Summary of All Variants Observed: NS5A R78R/K, S85G, R123Q, S131T, I144V, M226E, V296I, A310T, R311P, V315I, L368V, T395A, P399A, A400T, P401S, S402P, V410A, T442A/G Important Definitions Resistance Possible - Resistance Associated Variants (RAVs) detected that (a) represent naturally-occurring polymorphisms or treatment-emergent variants associated with reductions in sustained virologic response (SVR) rates, (b) emerge during direct-acting antiviral (DAA)-treatment or relapse, and/or (c) may confer reductions in susceptibility based on in vitro data. Refer to prescribing information for specific details regarding the impact of these variants on treatment response in defined patient populations and when administered in combination with other antiviral agents. None/Undetermined - None; no RAVs detected. Undetermined; variants detected that have a subtle or uncertain impact on DAA-treatment responses. All mutations are reported relative to the HCV genotype/subtype specific reference H77. Assessment of drug susceptibility is based on detected mutations and is interpreted using a rules-based algorithm (version 4). Naturally-occurring polymorphisms may impact the emergence of resistance, leading to failure of DAA combination therapy Naturally-occurring DAA resistance-associated polymorphisms identified at baseline may impact SVR if the treatment regimen, or adherence, is suboptimal. The impact of these polymorphisms may vary in treatment-naive and treatment-experienced patients and with varying disease states (e.g. non-cirrhotic vs cirrhotic) Reduced susceptibility to any one component of a DAA-containing regimen may be overcome by the activity of the other components of the regimen and/or longer treatment duration Treatment emergent RAVs may persist for prolonged periods of time and may impact subsequent treatment regimens Hepatitis C Virus NS5A Resist Assay Interp Comment [facility] [employer] [facility]) Comment: For more information on interpreting this report, please call [employer] [facility] at [phone] between the hours of 6:30am to 5:00pm [place] Time Tuesday through Tuesday. This assay is performed using a next-generation sequencing platform that analyzes the specified non-structural coding regions of HCV. Variants are reported at a sensitivity that has been demonstrated to be equivalent to that of [place]/population sequencing. Genotype assignment is determined from the sequence of the specified regions that are derived using subtype specific methodology, and should not be used to establish or confirm the HCV genotype. HCV genotype determination should only be done with an assay intended for that purpose. This assay meets the standards for performance characteristics and all other quality control inspector and assurance requirements established by the Clinical Laboratory Improvement Amendments. This assay was validated by testing samples with viral loads equal to or above 500 IU/mL and should be interpreted only on such specimens. The results should not be used as the sole criteria for patient management. The results have been disclosed to you from confidential records protected by law and are not to be disclosed to unauthorized persons. Further disclosure of these results is prohibited without specific consent of the persons to whom it pertains, or as permitted by law. 09/04/2015 11:0 4 AM CDT 09/04/2015 11:41 AM CDT Narrative [facility] ([place]) - 09/27/2015 5:07 PM CDT Performed at: - [facility] [address] [place] [id number] Suspect Artist Supervisor: Dawson Simmons MD, Phone: [phone] Acosta Vieyra MD LAB - CHEMISTRY ALICIA CORRALES [facility] ([facility]) * (ABNORMAL) LYDIA BLOOD SCREEN (09/04/2015 11:04 AM CDT) LYDIA Positive(A ) None Detected [facility] Venous blood specimen (specimen) 09/04/2015 11:04 AM CDT 09/04/2015 11:41 AM CDT Acosta Vieyra MD LAB - CHEMISTRY ALICIA CORRALES Performing Organization Address City/[facility] Co de Phone Number [address] [phone] * [id number] BLOOD PHENOTYPING PANEL (09/04/2015 11:04 AM CDT) [id number] n 166 90 - 200 mg/dL [facility] ([facility]) Phenotype (PI) MM [facility] ([facility]) Comment: Phenotype Population A-1-AT Concentration Incidence % Reference Interval MM 86.5% 96 - 189 MS 8.0% 83 - 161 MZ 3.9% 60 - 111 FM 0.4% 93 - 191 SZ 0.3% 42 - 75 SS 0.1% 62 - 119 ZZ 0.05% 16 - 38 FS 0.05% 70 - 128 FZ Unknown 44 - 88 FF Unknown Unknown Blood specimen (specimen) BLOOD SPECIMEN / Unknown 09/04/2015 11:04 AM CDT 09/04/2015 11:41 AM CDT Narrative [facility] ([place]) - 09/08/2015 3:13 PM CDT Performed at: [address] [id number] [employer] Supervisor: Tobias Beatty PhD, Phone: [phone] Performed at: 02 - [facility] [address] [id number] [employer] Artist Supervisor: Derek Molina MD, Phone: [phone] Acosta Vieyra MD LAB - CHEMISTRY ALICIA CORRALES [facility] ([place]) * CERULOPLASMIN (09/04/2015 11:04 AM CDT) Ceruloplasmin 30 20 - 60 mg/dL [facility] Blood specimen (specimen) BLOOD SPECIMEN / Unknown 09/04/2015 11:04 AM CDT 09/04/2015 11:41 AM CDT Acosta Vieyra MD LAB - CHEMISTRY ALICIA CORRALES Performing Organization Address [facility]/[place] Co de Phone Number [address] [phone] * [id number] BLOOD (09/04/2015 11:04 AM CDT) [id number]-9-Nzrlzo ypsin 172 90 - 200 mg/dL [facility] Blood specimen (specimen) BLOOD SPECIMEN / Unknown 09/04/2015 11:04 AM CDT 09/04/2015 11:41 AM CDT Acosta Vieyra MD LAB - CHEMISTRY ALICIA CORRALES Performing Organization Address [facility] Co de Phone Number [address] [phone] * SMOOTH MUSCLE ANTIBODY (09/04/2015 11:04 AM CDT) F-Actin Antibody IgG 15.0 0.0 - 19.9 Units [facility] Comment: F-Actin Antibody Numeric Result Interpretation: <20.0 Units: Negative 20.0 - 30.0 Units: Weak Positive >30.0 Units: Moderate to Strong Positive Blood specimen (specimen) BLOOD SPECIMEN / Unknown 09/04/2015 11:04 AM CDT 09/04/2015 11:42 AM CDT Acosta Vieyra MD LAB - SEROLOGY ORDER LIZZIE [address] [phone] Care Teams Fiberglass Tube Molder Relationship Specialty Start Date End Date Bayron Mg MD [address] [place] [address] PCP - General 09/30/15
--- OUTSIDE RECORDS SUMMARY | 2024-05-04 16:17 | XMS_ITS | Clinical Summary ---
Author Organization [facility] Address [address] [address] Care Team Providers Care Beverage Steward Name Role Phone Bayron Mg MD Primary Care Provider [phone] Allergies Active Allergy Reactions Criticality Noted Date Comments Penicillins Hives,Nausea and Vomiting High 9 Medications albuterol sulfate 90 mcg/Actuation inhaler 01/21/2021 Active risperiDONE (RisperDAL) 3 mg tablet 01/14/2021 Active traZODone (DESYREL) 50 mg tablet 01/14/2021 Active citalopram (CeleXA) 20 mg tablet 01/14/2021 Active fluticasone propion-salmeteroL 232-14 mcg/actuation Aerosol Powdr Breath Activated 03/04/2021 Ac tive Active Problems Problem Noted Date Diagnosed Date Pancytopenia 02/16/2021 Family History Medical History Relation Name Comments Diabetes Brother Cancer Father Heart Disease Father Diabetes Mother Heart Disease Mother Diabetes Sister 1 Heart Disease Sister 1 Diabetes Sister 2 Diabetes Sister 3 Relation Name Status Comments Brother Alive Daughter 1 Alive Daughter 2 Alive Father Mother Sister 1 Alive Sister 2 Alive Sister 3 Alive Son Alive Social History Tobacco Use Types Packs/Day Years Used Date Smoking Tobacco: Every Day Smokeless Tobacco: Never Alcohol Use Standard Drinks/Week Comments Yes 0 (1 standard drink = 0.6 oz pur e alcohol) Sex and Gender Information Value Date Recorded Sex Assigned at Not on file Legal Sex Male 3:23 PM CDT Gender Identity Not on file Sexual Orientation Not on file Last Filed Vital Signs Vital Sign Reading Time Taken Comments Blood Pressure 137/81 07/10/2021 1:11 PM CDT Pulse 117 07/10/2021 1:11 PM CDT Temperature 36.7 C (98 F) 07/10/2021 1:11 PM CDT Respiratory Rate - - Oxygen Saturation 97% 07/10/2021 1:11 PM CDT Inhaled Oxygen Concentration - - Weight 81.2 kg (179 lb) 07/10/2021 1:11 PM CDT Height 180.3 cm (5' 11 ) 07/10/2021 1:11 PM CDT Body Mass Index 24.97 07/10/2021 1:11 PM CDT Plan of Treatment Health Maintenance Due Date Last Done Comments DTAP/TDAP/TD VACCINES (1 - Tdap) 1980 COLORECTAL SCREENING 2006 Colorectal Cancer Screening 2006 FIT-DNA Q 3 years 2006 FIT/FOBT Q 1 year 2006 Flex Sig/CT Colonography Q 5 years 2006 ZOSTER VACCINE (1 of 2) 11/28/2011 RSV VACCINE (60+ or ) (1 - Risk 60-74 years 1-dose series) 2021 INFLUENZA VACCINE (#1) 2023 Insurance Care Teams Beverage Steward Relationship Specialty Start Date End Date Bayron Mg MD [address] [place] [id number] PCP - General Family Practice 02/16/21
--- OUTSIDE RECORDS SUMMARY | 2024-05-04 16:17 | XMS_ITS | Clinical Summary ---
Author Organization [facility] Address [address] [place] [address] Phone Care Team Providers Care Quotation Clerk Name Role Phone Bayron Mg MD Primary Care Provider Allergies Active Allergy Reactions Criticality Noted Date Comments Ampicillin Hives,Nausea 04/17/2018 Penicillins Hives,Nausea Medications Multiple Vitamin (MULTI-VITAMIN) Tablet Take by mouth 2 times daily. Active Vitamin B-1 (THIAMINE) 100 MG Tablet Take 100 mg by mouth daily. Active levoFLOXacin (LEVAQUIN) 500 MG Tablet Take 500 mg by mouth daily. Active folic acid (FOLVITE) 1 MG Tablet 8 Active meclizine (ANTIVERT) 12.5 MG Tablet Take 12.5 mg by mouth every 8 hours as needed. 8 Active FLUZONE QUADRIVALENT 0.5 ML Suspension Prefilled Syringe 8 Active PROAIR HFA 108 (90 Base) MCG/ACT Aerosol Solution take 2 Puffs by inhalation every 6 hours as needed. 9 Active raNITIdine (ZANTAC) 150 MG Tablet Take 1 Tab by mouth 2 times daily. 180 Tab 9 Active Lidocaine, Anorectal, 5 % Gel 1 Applicator by Apply externally route 2 times daily. 2 Tube 9 Active Lidocaine, Anorectal, (ANECREAM5) 5 % Cream 1 Applicator by Apply externally route 2 times daily. 3 Tube 9 Active citalopram (CELEXA) 20 MG Tablet Take 20 mg by mouth daily. Active metroNIDAZOLE (FLAGYL) 500 MG Tablet Take 1 Tab by mouth 3 times daily. 30 Tab 9 Active Additional Information Patient not taking.Reported on 02/19/2019 Magnesium 400 MG Capsule Take 400 mg by mouth daily. 30 Cap 2 9 Active Additional Information Patient not taking.Reported on 02/19/2019 Active Problems Problem Noted Date Diagnosed Date Hepatitis Family History Medical History Relation Name Comments Colon Cancer Brother 1 Crohn's Disease Brother 1 Heart Attack Brother 1 Heart Attack Brother 2 Cancer Brother 3 liver Diabetes Father Diabetes Mother Relation Name Status Comments Brother 1 Brother 2 Brother 3 Father Mother Social History Tobacco Use Types Packs/Day Years Used Date Smoking Tobacco: Every Day Cigarettes 2 48.1 Started: 04/14/1976 Smokeless Tobacco: Never Tobacco Cessation:Ready to Q uit: No; Counseling Given: Yes Alcohol Use Standard Drinks/Week Comments Not Currently 42 (1 standard drink = 0.6 oz pure alcohol) Been drink about 6 beers a night everyday Sexually Active Control Partners Comments Never Sex and Gender Information Value Date Recorded Sex Assigned at Not on file Legal Sex Male 7:33 AM CDT Gender Identity Not on file Sexual Orientation Not on file Last Filed Vital Signs Vital Sign Reading Time Taken Comments Blood Pressure 142/70 02/19/2019 12:54 PM BRICKLAYER APPRENTICE Pulse 94 02/19/2019 12:54 PM BRICKLAYER APPRENTICE Temperature 36.7 C (98.1 F) 02/19/2019 12:54 PM BRICKLAYER APPRENTICE Respiratory Rate 18 02/19/2019 12:54 PM BRICKLAYER APPRENTICE Oxygen Saturation 95% 02/19/2019 12:54 PM BRICKLAYER APPRENTICE Inhaled Oxygen Concentration - - Weight 96.2 kg (212 lb) 02/19/2019 12:54 PM BRICKLAYER APPRENTICE Height 180.3 cm (5' 11 ) 02/19/2019 12:54 PM BRICKLAYER APPRENTICE Body Mass Index 29.57 02/19/2019 12:54 PM BRICKLAYER APPRENTICE Plan of Treatment Health Maintenance Due Date Last Done Comments TdaP Immunization 1961 Cologuard 11/28/2011 Immunochemical Fecal Occult Blood 11/28/2011 Pneumococcal Immunization (50+ years) (1 of 1 - PCV) 11/28/2011 Zoster Immunization (1 of 2) 11/28/2011 Hepatitis B Immunization (2 of 3 - 19+ 3-dose series) 09/16/2015 08/19/2015 PSA Discussion 2016 Colonoscopy 06/06/2019 06/05/2018, 05/14/2014 Colorectal Cancer Screening 06/06/2019 Influenza Immunization (#1) 11/27/202312/27, 02/14/2020, 12/29/2018, Additional history exists SARS-COV-2 Immunization ( season) 2023 07/03/2020 Respiratory Syncytial Virus (RSV) Immunization (Adult) (1 - 1-dose 75+ series) 2036 06/05/2018, 05/14/2014 Meningococcal Immunization (ACWY) Aged Out No longer eligible based on patient's age to complete this topic Pneumococcal Immunization Combined Aged Out No longer eligible based on patient's age to complete this topic Rotavirus Immunization Aged Out No lo nger eligible based on patient's age to complete this topic Procedures Procedure Name Priority Date/Time Associated Diagnosis Comments COLONOSCOPY Routine 05/14/2014 from Last 3 Months or Most Recently Relevant to Health Maintenance Results * COLONOSCOPY (05/14/2014) us Not On File Provider PROCEDURE/MINOR SURGICAL OR DERABLES Final Result from Last 3 Months or Most Recently Relevant to Health Maintenance Additional Health Concerns Infection Onset Date Last Indicated C. difficile 06/05/2018 06/05/2018 Insurance MEDICAID [employer] Care Teams Quotation Clerk Relationship Specialty Start Date End Date Bayron Mg MD [address] [place] [address] PCP - General Pediatrics 01/17/18
--- OUTSIDE RECORDS SUMMARY | 2024-05-04 16:17 | XMS_ITS | Referral Summary ---
Author Organization [facility] Address [address] [place] [address] Care Team Providers Care Turner Machine Name Role Phone Bayron Mg MD Primary Care Provider [phone] [facility],non-owned Affiliates and Associated Physician Practices is amultiple site organization consisting of ambulatory clinics and hospital sitesin [place], [place], [place] and [place]. This disclosure is being madepursuant to the Care Everywhere program and may not contain all information available regarding this patient. Last updated 17.[facility] Encounters Date Type Department Care Team Description 04/18/2024 10:00 AM SLICING MACHINE OPERATOR/TENDER - 04/18/2024 10:29 AM SLICING MACHINE OPERATOR/TENDER Hospital Encounter [facility] LAB OP DRAW STATION [address] [place] [address] Isabel Holliday APRN-CNP Discharge Disposition: Home or Self Care 04/18/2024 11:00 AM SLICING MACHINE OPERATOR/TENDER Office Visit [facility] RAD CSM 3L [address] [facility] [place] [address] Isabel Holliday APRN-CNP HCC (hepatocellular carcinoma) (HCC) (Primary Dx) 04/18/2024 10:30 AM SLICING MACHINE OPERATOR/TENDER - 04/18/2024 11:59 PM SLICING MACHINE OPERATOR/TENDER Hospital Encounter [facility] CAT SCAN [address] [place] [address] Isabel Holliday APRN-CNP Discharge Disposition: Home or Self Care from Last 3 Months Allergies Active Allergy Reactions Criticality Noted Date [...] varices. > Dictated by Ravinder Sandra MD (residential door unit installer). PT 10/09/21 Liver Frailty Score Frailty Index [...] evidence of periapical abscess. Needs: ID consult +strongy Department SW worked to arrange PT through [facility] locally to his home. His per [...] to quit smoking. Leana Okeefe M.D., PhD., [facility] Visit with Dr. Javed 12/29/21 Patient Instructions [...] Comments Blood Pressure 148/85 04/18/2024 11:27 AM SLICING MACHINE OPERATOR/TENDER Pulse 99 04/18/2024 11:27 AM SLICING MACHINE OPERATOR/TENDER Temperature 36.2 C (97.2 F) 04/18/2024 11:27 AM SLICING MACHINE OPERATOR/TENDER Respiratory Rate 14 04/18/2024 11:27 AM SLICING MACHINE OPERATOR/TENDER Oxygen Saturation 95% 04/18/2024 11:27 AM SLICING MACHINE OPERATOR/TENDER Inhaled Oxygen Concentration - - Weight 86.2 kg (190 lb) 04/18/2024 11:27 AM SLICING MACHINE OPERATOR/TENDER Height 180.3 cm (5' 10.98 ) 04/18/2024 11:27 AM SLICING MACHINE OPERATOR/TENDER Body Mass Index 26.51 04/18/2024 11:27 AM SLICING MACHINE OPERATOR/TENDER Functional Status Functional Status Response Date of Assess ment Is person deaf or have serious hearing difficult y? No 10/07/2021 Is person blind or have serious difficulty seein g? No 10/07/2021 Does person have serious dif ficulty walking/climbing stairs? Yes 10/07/2021 Does person have difficulty dressing/bathing? No 10/07/2021 Does person have difficulty doing errands alone? Yes 10/07/2021 Cognitive Status Response Date of Assessm ent Does person have difficulty concentrating/remembering/making decisions? No 10/07/2021 Plan of Treatment Upcoming Encounters Date Type Department Care Team (Late st Contact Info) Description 07/19/2024 11:30 AM CDT Appointment [facility] LAB OP DRAW STATION [address] [place] [address] 07/19/2024 12:30 PM CDT Appointment [facility] MRI [address] [place] [address] Antwon Marmolejo MD [address] [place] [address] 07/25/2024 10:30 AM CDT Office Visit [facility] RAD CSM [address]L [address] [facility] [place] [id number] Isabel Holliday, COUNT ROOM CLERK-TECHNOLOGY APPLICATIONS ENGINEER [address] [facility] FIRST [place] [address] Goals Goal Patient Goal Type Associated Problems Recent Progress Patient-Stated? Author Medication Management General On track( 025 11:32 AM SLICING MACHINE OPERATOR/TENDER) Carlton Herring, RN Note: Expected end date: Interventions: Take all medications as prescribed Let your doctor know right away about any changes in your medications Make sure to request a refill of your medication at least one week prior to your last dose Procedures Procedure Name Priority Date/Time Associated Diagnosis Comments PT-INR SLH Routine 04/18/2024 11:21 AM SLICING MACHINE OPERATOR/TENDER HCC (hepatocellular carcinoma) (HCC) COMPREHENSIVE METABOLIC PANEL Routine 04/18/2024 11:21 AM SLICING MACHINE OPERATOR/TENDER HCC (hepatocellular carcinoma) (HCC) CBC W AUTO DIFFERENTIAL Routine 04/18/2024 11:21 AM SLICING MACHINE OPERATOR/TENDER HCC (hepatocellular carcinoma) (HCC) ALPHA FETOPROTEIN BLOOD TUMOR MARKER Routine 04/18/2024 11:21 AM SLICING MACHINE OPERATOR/TENDER HCC (hepatocellular carcinoma) (HCC) CT ABDOMEN MULTI PHASE W CONT Routine 04/18/2024 11:00 AM SLICING MACHINE OPERATOR/TENDER HCC (hepatocellular carcinoma) (HCC) CREATININE - POCT INTERFACED Routine 04/18/2024 10:38 AM SLICING MACHINE OPERATOR/TENDER LIPID PROFILE Routine 11/02/2021 1:13 PM CDT [...] to Health Maintenance Results * (ABNORMAL) PT-INR SLH (04/18/2024 11:21 AM SLICING MACHINE OPERATOR/TENDER) PT 15.8(H) 12.1 - 14.8 Seconds 04/18/2024 12:06 PM [facility] INR 1.3 See Comment 04/18/2024 12:06 PM [facility] Comment:The suggested therap eutic range for standard coumadin (warfarin) therapy is an INR of 2.0-3.0. For high-risk patients (Mechanical Mitral Valve Prosthesis, etc.), the suggested prophylactic therapeutic range is an INR of 2.5-3.5. Blood BLOOD SPECIMEN / Unknown Lab Venipuncture / Unknown 04/18/2024 11:21 AM SLICING MACHINE OPERATOR/TENDER 04/18/2024 11:40 AM SLICING MACHINE OPERATOR/TENDER [facility] - COAGULAT[facility] N ORDERABLES Performing Organization Address [facility] Co de Phone Number [address] [address], [facility] [phone] * ALPHA FETOPROTEIN BLOOD TUMOR MARKER (04/18/2024 11:21 AM [facility]) Pathologist [facility] Alpha-Fetoprote in Tumor Marker 2.8 <=8.3 ng/mL 04/18/2024 12:31 PM [facility] Comment: AFP values will vary depending on testing procedure used. Results are not comparable across different methods. AFP values obtained by [facility] using an Hernandes Alinity Immunoassay. Blood BLOOD SPECIMEN / Unknown Lab Venipuncture / Unknown 04/18/2024 11:21 AM SLICING MACHINE OPERATOR/TENDER 04/18/2024 11:44 AM SLICING MACHINE OPERATOR/TENDER Isabel Holliday [facility] - CHEMISTRY ORDERABLES Performing Organization Address City/[facility]/ZIP Co de Phone Number [address] [address], [facility] [phone] * (ABNORMAL) CBC WITH DIFFERENTIAL (04/18/2024 11:21 AM SLICING MACHINE OPERATOR/TENDER) Pathologist [facility] WBC 3.1(L) 4.0 - 10.7 x10E9/L 04/18/2024 12:21 PM [facility] RBC Count 3.09(L) 4.30 - 5.80 x10E12/L 04/18/2024 12:21 PM [facility] Hemoglobin 12.7(L) 13.3 - 17.5 g/dL 04/18/2024 12:21 PM [facility] Hematocrit 35.5(L) 38.7 - 51.1 % 04/18/2024 12:21 PM [facility] MCV 114.9(H) 80.0 - 98.0 fL 04/18/2024 12:21 PM [facility] MCH 41.1(H) 26.7 - 33.6 pg 04/18/2024 12:21 PM [facility] MCHC 35.8 31.7 - 36.3 g/dL 04/18/2024 12:21 PM [facility] RDW-CV 14.7 11.3 - 14.8 % 04/18/2024 12:21 PM [facility] Platelet Count 68(L) 150 - 420 x10E9/L 04/18/2024 12:21 PM [facility] MPV 10.9 7.8 - 11.4 fL 04/18/2024 12:21 PM [facility] Neutrophil % 48.5 41.0 - 74.0 % 04/18/2024 12:21 PM [facility] Lymphocyte % 35.7 17.0 - 47.0 % 04/18/2024 12:21 PM [facility] Monocyte % 13.6(H) 3.0 - 11.0 % 04/18/2024 12:21 PM [facility] Eosinophil % 1.6 0.0 - 7.0 % 04/18/2024 12:21 PM [facility] Basophil % 0.3 0.0 - 1.6 % 04/18/2024 12:21 PM [facility] Immature Granulocytes % 0.3 0.0 - 1.0 % 04/18/2024 12:21 PM [facility] Neutrophil Absolute 1.49(L) 1.60 - 7.50 x10E9/L 04/18/2024 12:21 PM [facility] Lymphocyte Absolute 1.10 1.00 - 4.40 x10E9/L 04/18/2024 12:21 PM [facility] Monocyte Absolute 0.42 0.15 - 1.00 x10E9/L 04/18/2024 12:21 PM [facility] Eosinophil Absolute 0.05 0.00 - 0.60 x10E9/L 04/18/2024 12:21 PM [facility] Basophil Absolute 0.01 0.00 - 0.13 x10E9/L 04/18/2024 12:21 PM [facility] Blood BLOOD SPECIMEN / Unknown Lab Venipuncture / Unknown 04/18/2024 11:21 AM SLICING MACHINE OPERATOR/TENDER 04/18/2024 11:44 AM [facility] Isabel Gagelivan COUNT ROOM CLERK-TECHNOLOGY APPLICATIONS ENGINEER LAB - HEMATOLOGY ORDERABLES [facility] [address] [place] [address], [facility] [phone] * (ABNORMAL) COMPREHENSIVE METABOLIC PANEL (04/18/2024 11:21 AM SLICING MACHINE OPERATOR/TENDER) BUN 9 7 - 26 mg/dL 04/18/2024 12:16 PM [facility] Creatinine 0.69(L) 0.71 - 1.16 mg/dL 04/18/2024 12:16 PM [facility] Sodium 134(L) 136 - 145 mmol/L 04/18/2024 12:16 PM [facility] Potassium 3.8 3.5 - 4.5 mmol/L 04/18/2024 12:16 PM [facility] Chloride 100 98 - 107 mmol/L 04/18/2024 12:16 PM [facility] CO2 23 22 - 29 mmol/L 04/18/2024 12:16 PM [facility] Glucose 115(H) 70 - 99 mg/dL 04/18/2024 12:16 PM [facility] Calcium 8.9 8.4 - 10.2 mg/dL 04/18/2024 12:16 PM [facility] Protein Total 7.2 6.0 - 8.3 g/dL 04/18/2024 12:16 PM [facility] Albumin 3.2(L) 3.4 - 5.0 g/dL 04/18/2024 12:16 PM [facility] Bilirubin Total 1.0 0.2 - 1.2 mg/dL 04/18/2024 12:16 PM [facility] Alkaline Phosphatase 190(H) 40 - 150 U/L 04/18/2024 12:16 PM [facility] ALT 16 5 - 55 U/L 04/18/2024 12:16 PM [facility] AST 53(H) 5 - 34 U/L 04/18/2024 12:16 PM [facility] Anion Gap 11 6 - 16 04/18/2024 12:16 PM [facility] BUN/Creatinine Ratio 13 7 - 23 04/18/2024 12:16 PM [facility] Osmolality Calculated 278 275 - 295 mOsm/kg 04/18/2024 12:16 PM [facility] Albumin/Globulin Ratio 0.8(L) 1.1 - 2.3 04/18/2024 12:16 PM [facility] eGFR by CKD-EPI >90 >=90 mL/min/1.7 3 m2 04/18/2024 12:16 PM [facility] Blood BLOOD SPECIMEN / Unknown Lab Venipuncture / Unknown 04/18/2024 11:21 AM SLICING MACHINE OPERATOR/TENDER 04/18/2024 11:44 AM SLICING MACHINE OPERATOR/TENDER Isabel Mg COUNT ROOM CLERK-TECHNOLOGY APPLICATIONS ENGINEER LAB - CHEMISTRY ORDERABLES Performing Organization Address [facility]/State/[facility] Co de Phone Number [address] [address], [facility] [phone] * CT Abdomen Multi Phase W Cont (04/18/2024 11:00 AM SLICING MACHINE OPERATOR/TENDER) Anatomical Region Laterality Modality Abdomen Computed Tomogra phy 04/18/2024 1:57 PM SLICING MACHINE OPERATOR/TENDER Impressions 04/18/2024 2:03 PM SLICING MACHINE OPERATOR/TENDER Impression: 1.Nonviable treatment cavity in segment 6/7 without suspicious features (LR TR nonviable). 2.Hepatic cirrhosis with sequela of portal hypertension. 3.No new suspicious observations. > Interpreting Provider: Stas Shipley MD on 04/18/2024 2:03 PM Narrative 04/18/2024 2:03 PM SLICING MACHINE OPERATOR/TENDER PROCEDURE: CT ABDOMEN MULTI PHASE W CONT [...] MD on 04/18/2024 2:03 PM Isabel Holliday APRN-[facility] CT ORDERABLES * CREATININE - POCT INTERFACED (04/18/2024 10:38 AM SLICING MACHINE OPERATOR/TENDER) [facility] Creatinine POCT 0.91 0.30 - 1.30 mg/dL 04/18/2024 10:44 AM SLICING MACHINE OPERATOR/TENDER [facility] eGFR >90 >=90 mL/min/1.7 3 m2 04/18/2024 10:44 AM [facility] Blood BLOOD SPECIMEN / Unknown 04/18/2024 10:38 AM SLICING MACHINE OPERATOR/TENDER 04/18/2024 10:44 AM [facility] Isabel Holliday APRN-[facility] LAB - POINT OF C ARE ORDERABLES [facility] [address] [place] [address], [facility] [phone] * (ABNORMAL) HEPATITIS C ANTIBODY (11/02/2021 1:13 PM CDT) [facility] Hepatitis C Antibody Reactive( A) Non-react ita 11/02/2021 2:44 PM CDT [facility] Comment:Hepatitis C Antibody screen is consistent [...] Dunne MD LAB - CHEMISTRY ALICIA CORRALES [facility] [address] [place] [address], [facility] [phone] * (ABNORMAL) LIPID PROFILE (11/02/2021 1:13 PM CDT) [facility] Cholesterol Total 100 <200 mg/dL 11/02/2021 1:49 PM CDT [facility] HDL 28(L) >40 mg/dL 11/02/2021 1:49 PM CDT [facility] Comment: ATP III Classification of HDL Cholesterol: <40 mg/dL: Considered a major risk factor. >60 mg/dL: Considered a negative risk factor. LDL Calculated 59 <100 mg/dL 11/02/2021 1:49 PM CDT [facility] Comment: ATP III Classification of LDL Cholesterol: <100 mg/dL: Optimal 100 - 129 mg/dL: Near Optimal/Above Optimal 130 - 159 mg/dL: Borderline High 160 - 189 mg/dL: High >190 mg/dL: Very High Triglycerides 63 <150 mg/dL 11/02/2021 1:49 PM CDT [facility] Comment: ATP III Classification of Triglycerides: <150 mg/dL: Normal 150 - 199 mg/dL: Borderline High 200 - 400 mg/dL: High >500 mg/dL: Very High Blood BLOOD SPECIMEN / Unknown Lab Venipuncture / Unknown 11/02/2021 1:13 PM CDT 11/02/2021 1:25 PM CDT Henny Dunne MD LAB - CHEMISTRY ALICIA CORRALES [facility] [address] [place] [address], [facility] [phone] from Last 3 Months or Most Recently Relevant to Health Maintenance Care Teams Turner Machine Relationship Specialty Start Date End Date Bayron Mg MD [address] [place] [address] PCP - General 09/30/15
--- OUTSIDE RECORDS SUMMARY | 2024-05-04 16:17 | XMS_ITS | Clinical Summary ---
Author Organization [facility] Address [address] [place] [address] Care Team Providers Care Senior Air Director Name Role Phone Bayron Mg MD Primary Care Provider [phone] Allergies Active Allergy Reactions Criticality Noted Date Comments Penicillins Hives,Nausea Only 04/17/2018 Medications Multiple Vitamins-Minera ls (MULTIVITAMIN ADULT OR) Take 1 tablet by mouth daily. Active thiamine 100 MG Tab Take 100 mg by mouth daily. Active neomycin 500 MG tablet Take 1,000 mg by mouth 3 (three) times daily before meals. Active folic acid 1 MG tablet Take 1 mg by mouth daily. Active fluticasone 110 MCG/ACT inhaler Inhale 2 puffs into the lungs 2 (two) times daily. Active albuterol sulfate HFA 108 (90 Base) MCG/ACT inhaler Inhale 2 puffs into the lungs every 6 (six) hours as needed for Shortness of breath. Active meclizine 12.5 MG tablet Take 12.5 mg by mouth every 4 (four) hours as needed for Dizziness. Active spironolactone 50 MG tablet Take 50 mg by mouth daily. 9 Active citalopram 20 MG tablet Take 20 mg by mouth 2 (two) times a day. 0 Active risperiDONE 3 MG tablet Take 1 tablet by mouth daily. 0 Active oxyCODONE-aceta minophen 5-325 MG tabletIndicatio ns:Acute Pain < 7 Day Supply Take 1 tablet by mouth every 4 (four) hours as needed for Pain. 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 Alcoholic cirrhosis of liver without ascites ([facility]) 08/07/2018 COPD (chronic obstructive pu lmonary disease) ([facility]) 08/07/2018 Major depressive disorder 08/07/2018 Cirrhosis of liver ([facility]) 09/04/2015 Viral hepatitis C without hepatic coma 6 Resolved Problems Problem Noted Date Diagnosed Date Resolved Date Angiolipoma of skin 08/25/2018 08/31/19 19 Multiple lipomas 08/08/2018 08/30/2018 Family History Medical History Relation Comments Emphysema Brother 1 Heart Attack Brother 1 Colon Cancer Brother 2 Emphysema Father No Known Problems Maternal Grandfather Diabetes Maternal Grandmother Heart Disease Maternal Grandmother Diabetes Mother Emphysema Mother Heart Disease Mother No Known Problems Paternal Grandfather No Known Problems Paternal Grandmother Diabetes Sister 1 Heart Disease Sister 1 Diabetes Sister 2 Diabetes Sister 3 Relation Status Comments Brother 1 Brother 2 Father Maternal Grandfather Maternal Grandmother Mother Paternal Grandfather Paternal Grandmother Sister 1 Alive Sister 2 Alive Sister 3 Alive Social History Tobacco Use Types Packs/Day Years Used Date Smoking Tobacco: Every Day Cigarettes 3 53.1 Started: 1971 Smokeless Tobacco: Never Tobacco Cessation:Ready to Q uit: No; Counseling Given: No Alcohol Use Standard Drinks/Week Comments Yes 6.7 [...] AM CDT Sexual Orientation Not on file Last Filed Vital Signs Vital Sign Reading Time Taken Comments Blood Pressure 155/98 07/27/2019 3:34 PM CDT Pulse 101 07/27/2019 3:34 PM CDT Temperature 37.2 C (98.9 F) 07/27/2019 3:34 PM CDT Respiratory Rate 20 07/27/2019 3:34 PM CDT Oxygen Saturation 97% 07/27/2019 3:34 PM CDT Inhaled Oxygen Concentration - - Weight 95.7 kg (211 lb) 09/19/2019 2:45 PM CDT Height 180.3 cm (5' 11 ) 09/19/2019 2:45 PM CDT Body Mass Index 29.43 09/19/2019 2:45 PM CDT Plan of Treatment Health Maintenance Due Date Last Done Comments Colorectal Cancer Screening Colonoscopy (10 Years) 1961 Annual Physical 1964 Pneumococcal Vaccine: Pediatrics (0 to 5 Years) and At-Risk Patients (6 to 64 Years) (1 of 2 - PCV) 11/28/1967 DTaP, Tdap and Td Vaccines (1 - Tdap) 1980 Zoster Vaccines (1 of 2) 11/28/2011 RSV Immunization or 60+ Years (1 - Risk 60-74 years 1-dose series) 2021 COVID-19 Vaccine (1 - 2023- season) 2023 Influenza Adult (#1) 2023 Hepatitis C Completed 11/02/2021, 02/26, 02/28/2019, Additional history exists Meningococcal B Vaccine Aged Out No l onger eligible based on patient's age to complete this topic Meningococcal Vaccine Aged Out No domitila erasto eligible based on patient's age to complete this topic RSV Immunizations Under 20 Months Aged Out No longer eligible based on patient's age to complete this topic Medical Devices Implanted Type Area Color Maker Formulator Device Identifier Shelf Expiration Date Model / Serial / Lot Round O Suture Bio-Swivelock C Arthrex White/Black 4.75 X 19.1mm - [id number] Implanted:Qty: 1 on 03/29/2019 by Yogi Kirkpatrick MD at [facility] 09/24/2020 [id number] / / [id number] Round O Suture Bio-Swivelock C Arthrex - [id number] Implanted:Qty: 1 on 03/29/2019 by Yogi Kirkpatrick MD at [facility] 10/25/2020 [id number] / / [id number] Round O Suture Arthrex - [id number] Implanted:Qty: 1 on 03/29/2019 by Yogi Kirkpatrick MD at [facility] 09/24/2020 [id number] / / [id number] Round O Suture Arthrex - [id number] Implanted:Qty: 1 on 03/29/2019 by Yogi Kirkpatrick MD at [facility] 09/24/2020 [id number] / / [id number] Implant System Arthrex Proximal [employer]is - [id number] Implanted:Qty: 1 on 03/29/2019 by Yogi Kirkpatrick MD at [facility] 12/25/2022 [id number] / / [id number] Insurance MEDICAID MEDICAL REIM[employer]MENTS OF [place] Care Teams Senior Air Director Relationship Specialty Start Date End Date Bayron Mg MD [address] [place] [address] PCP - General FAMILY PRACTICE 08/01/18
--- OUTSIDE RECORDS SUMMARY | 2024-05-04 16:17 | XMS_ITS | Data Portability ---
Author Organization [facility], [address] [place] [address] Neurology ([place]) Address [address] [place] [phone] Assessment Encounter Date Assessment Date Assessment LastModified by Organization Details LastModified Time 08/15/2023 08/15/2023 Patient is a 62-year-old male returns for follow-up for idiopathic Parkinson's disease. At this point we discussed increasing his dosing to every 3 hours. I am hopeful with this regimen will have better improved control of tremor in addition to freezing and festination. He is to monitor for orthostasis in addition to nausea and dyskinesia. For now we will see him back in 6 months time. [email or web address] Not available 08/25/2023 15:02:27 Plan of Treatment Reminders Order Date Submit Date Provider Last Modified By Organization Details Last Modified Time Details Appointments None record ed. Lab None record ed. Referral None record ed. Procedures None record ed. Surgeries None record ed. Imaging None record ed. Medication Orders None record ed. Patient TargetsNo targets recorded. Patient InstructionsNo instructions recorded. Reason for Referral None Reported. Problems Name Problem SNOMED Code Status Onset Date Resolution Date Notes Provider Name and Address Organization Details Recorded Time Parkinson 's disease 00760061 Active 024 Arvil Campos MD [address] [place] [address], [phone] , [facility] 08/25/2023 15:01:55 Problem Notes None recorded. Medical Equipment None Reported. Allergies Allergen ID Allergen Name Allergen Category Reaction Reaction Severity Criticality Documentation Date Start Date Code Code System Note Provider Name and Address Organization Details Recorded Time 1756067 Product containin g penicilli n and antibioti c (product) medicatio n Not available Not available Not available 04/27/20232021 31863 05 SNOMED Not Available Not Available Not Available Medications Name Sig Start Date Stop Date Status Note LastModified by Organization Details LastModified Time citalopram 40 mg tablet active Not Available Not Available No t Available trazodone 50 mg tablet active Not Available Not Available No t Available risperidone 4 mg tablet active Not Available Not Available No t Available doxycycline monohydrate 100 mg tablet active Not Available Not Availabl e Not Available quetiapine 100 mg tablet active Not Available Not Available No t Available albuterol sulfate HFA 90 mcg/actuation aerosol inhaler active Not Available Not Available Not Available carbidopa 25 mg-levodopa 100 mg tablet active Not Available Not Availabl e Not Available fluticasone 232 mcg-salmeterol 14 mcg/actuation breath activated powdr active Not Available Not Available Not Available Vitals Date Recorded Body weight Heart rate Respiratory rate Oxygen saturation Oxygen saturation in Arterial blood by Pulse oximetry Systolic blood pressure Diastolic blood pressure Provider Name and Address Organization Details Last Updated DateTime 4 14518.7 9 g 87 /min 18 /min 95 % 95 % 139 mm[Hg] 81 mm[Hg] [facility] 4 16:55:41 Social History None recorded. Functional Status None recorded. Mental Status None recorded. Family History Nothing Reported. Medical History No medical history recorded. Past Encounters Encounter ID Performer Location Encounter Start Date Encounter Closed Date Diagnosis/Indication Diagnosis SNOMED-CT Code Diagnosis ICD10 Code Diagnosis Note [id number] Avril Campos MD [facility] Neurology ([place]) [address] [place] [address] 08/15/2023 16:52:36 08/26/2023 16:41:04 Parkinson's disease 51881377 G20.A1 Health Concerns Section Related Observation LastModified by Organization Detai ls LastModified Time None Recorded Concern Status LastModified by Organization Details LastModified Time None Recorded Advance Directives Directive None Recorded Payers Encounter Date Sequence Insurance Name Policy Number Policy William Covered Member ID William Member ID Guarantor Name 08/15/2023 1 [facility] (MEDICARE REPLACEMENT/A DVANTAGE - PPO) [id number] Notes Date Note Type Note Provider Name and Address Organization Details Recorded Time 08/15/2023 text/html Patient is a 62-year-old male returns for follow-up for Parkinson's disease. Since I last saw him he is doing reasonably well. He still notices breakthrough of symptoms despite a regimen of 50-200 mg tablets at 8 AM 12 PM 4 PM and 8 PM. We have not attempted to increase dosing throughout the day. At this point may be reasonable to consider this since he describes what is more in the clinical history off phenomena. He gets approximately 3 hours of relief with recurrence approximate 1 hour prior to the next dose of the medication. He tolerates medication well at this point without any reports of dyskinesia or nausea. He is not reporting any odd symptoms like hallucinations at this time. Avril Campos MD [address] [facility], [place], [address], [facility] 08/25/2023 15:03:17
[2024-05-04 16:32] LABS: Add Urine Microscopic? YES; Appearance Urine Clear (Clear); Bilirubin Urine 1+ (Negative); Blood Urine 3+ (Negative); Color Urine Yellow (Yellow); Glucose Urine UA Negative (Negative); Ketones Urine Trace (Negative); Leukocyte Esterase Ur 1+ (Negative); Nitrate Urine Positive (Negative); Protein Urine Trace (Negative); Specific Grav Ur <= 1.005 (1.010-1.020)
[2024-05-04 16:34] LABS: Hematocrit 36.1 % (40.0-54.0); Hemoglobin 12.4 g/dL (14.0-18.0); Immature Platelet Fraction Pct 2.9 % (1.0-7.0); Mean Corpuscular HGB Conc 34.3 g/dL (32-36); Mean Corpuscular Hemoglobin 41.3 pg (27.0-31.0); Mean Corpuscular Volume 120.3 fL (78.0-102.0); Mean Platelet Volume 10.3 fl (8.7-11.0); Platelet Count Result 78 K/mm3 (150-420); Red Cell Distribution Width 15.6 % (11.6-14.4); White Blood Count 5.4 K/mm3 (4.8-10.8)
[2024-05-04 16:55] LABS: Alanine Aminotransferase 24 U/L (16-63); Albumin Level 3.2 g/dL (3.4-5.0); Alkaline Phosphatase 199 U/L (46-116); Ammonia 20 umol/L (11-32); Anion Gap 7 mmol/L (4-12); Bilirubin,Total 1.1 mg/dL (0.00-1.00); Blood Urea Nitrogen 5 mg/dL (7-18); Carbon Dioxide 30 mmol/L (21-32); Chloride 98 mmol/L (98-108); Glucose 97 mg/dL (70-99); Osmolality Calculated 277 mOsm/kg (285-295); Potassium 4.1 mmol/L (3.5-5.1); Sodium 135 mmol/L (136-145); Thyroid Stimulating Hormone 2.53 uIU/mL (0.36-3.74); Total Protein 7.9 g/dL (6.4-8.2)
[2024-05-04 17:04] LABS: Band Neutrophils Percent 0 % (0-6); Basophils Percent Manual 0 % (0-1); Eosinophils Absolute Manual 0.05 K/mm3 (0.02-0.50); Eosinophils Percent Manual 1 % (1-6); Lymphocytes Percent Manual 39 % (18-44); Monocytes Percent Manual 2 % (3-9); Neutrophils Absolute Manual 3.13 K/mm3 (1.3-6.7); Neutrophils Percent Manual 58 % (46-73); Platelet Estimate Adequate (Adequate); Total Cells Counted 100
[2024-05-04 17:06] LABS: Aspartate Amino Transferase 41 U/L (15-37); Estimated Glomerular Filt Rate > 60
[2024-05-04 17:38] LABS: Bacteria Urine 2+ /hpf; Squamous Epithelial Cell Urine Few /hpf (Few)
== END 2024-05-04 16:14 | disposition home or self-care (01) ==
PROVIDERS: PCP Family Medicine; Visit Provider Family Medicine
DX: J06.9 Acute upper respiratory infection, unspecified (principal); R31.9 Hematuria, unspecified; R53.83 Other fatigue
CPT/HCPCS: 36415; 80053; 81001; 82140; 84443; 85025; 85055; 87077; 87086; 87088; 87186

== ENCOUNTER 2024-07-06 14:06 | Outpatient (CLI) | payer MEDICARE, MEDICAID, SELFPAY ==
--- NOTE | ~2024-07-06 | US_ITS ---
Procedure: Duplex Doppler examination of the bilateral carotids. Indication: Dizziness and giddiness Technique: Real time, color-flow and pulse wave Doppler examination of the bilateral carotids was performed. Findings: Tee scale ultrasonography of the right neck demonstrated small to moderate plaque at the carotid bif urcation. There was demonstration of normal color-flow and Doppler waveforms within the right common, internal and external carotid arteries. The peak systolic velocities in the right common, internal a nd external carotid arteries were demonstrated to be 109 cm/sec, 97 cm/sec and 101 cm/sec respectivel y. The right ICA/CCA ratio was 0.9.The proximal right internal carotid artery demonstrates 0% stenosi s relative to the normal distal artery lumen diameter. Tee scale sonography of the left neck demonstrated small to moderate plaques at the left carotid bif urcation region. There was demonstration of normal color-flow and wave forms within the left common, internal and external carotid arteries. The peak systolic velocities in the left common, internal and external carotid arteries were demonstrated to be 95cm/sec, 83 cm/sec and 120 cm/sec respectively. T he left ICA/CCA ratio was 0.9. The proximal left internal carotid artery demonstrates 0% stenosis rel ative to the normal distal artery lumen diameter. There was antegrade flow demonstrated in the bilateral vertebral arteries. Impression: No hemodynamically significant stenosis of the bilateral internal carotid arteries. Antegrade flow in the bilateral vertebral arteries. Note: The methodology used is an indirect measurement validated against a direct method (such as the NASCET criteria) that compares diameters at the stenosis to the distal ICA. Reviewed, dictated and finalized at location . Impression: No hemodynamically significant stenosis of the bilateral internal carotid arter ies. Antegrade flow in the bilateral vertebral arteries. Note: The methodology used is an indirect measurement validated against a direct meth od (such as the NASCET criteria) that compares diameters at the stenosis to the distal ICA.
--- OUTSIDE RECORDS SUMMARY | 2024-07-06 14:09 | XMS_ITS | Clinical Summary ---
Author Organization [facility] Address [address] [facility] [address] [place] [address] Phone Care Team Providers Care Source Inspector Name Role Phone Bayron Mg MD Primary [...] Date Smoking Tobacco: Every Day Cigarettes 2 48.2 Started: 04/14/1976 Smokeless Tobacco: Never Tobacco Cessation:Ready [...] Comments Blood Pressure 142/70 02/19/2019 12:54 PM THERMAL ENGINEER Pulse 94 02/19/2019 12:54 PM THERMAL ENGINEER Temperature 36.7 C (98.1 F) 02/19/2019 12:54 PM THERMAL ENGINEER Respiratory Rate 18 02/19/2019 12:54 PM THERMAL ENGINEER Oxygen Saturation 95% 02/19/2019 12:54 PM THERMAL ENGINEER Inhaled Oxygen Concentration - - Weight 96.2 kg (212 lb) 02/19/2019 12:54 PM THERMAL ENGINEER Height 180.3 cm (5' 11 ) 02/19/2019 12:54 PM THERMAL ENGINEER Body Mass Index 29.57 02/19/2019 12:54 PM THERMAL ENGINEER Plan of Treatment Health Maintenance Due Date Last Done Comments TdaP Immunization 1960 Cologuard 11/28/2011 Immunochemical Fecal Occult Blood 11/28/2011 Pneumococcal Immunization (50+ years) (1 of 1 - PCV) 11/28/2011 Zoster Immunization (1 of 2) 11/28/2011 Hepatitis B Immunization (2 of 3 - 19+ 3-dose series) 09/16/2015 08/19/2015 Colonoscopy 06/06/2019 06/05/2018, 05/14/2014 Colorectal Cancer Screening 06/06/2019 Influenza Immunization (#1) 11/27/202312/27, 02/14/2020, 12/29/2018, Additional history exists SARS-COV-2 Immunization (2023- season) 2023 07/03/2020 Respiratory Syncytial Virus (RSV) [...] Insurance MEDICAID [employer] Care Teams Source Inspector Relationship Specialty Start Date End Date Bayron Mg MD [address] [place] [address] PCP - General Pediatrics 01/17/18
--- OUTSIDE RECORDS SUMMARY | 2024-07-06 14:09 | XMS_ITS | Clinical Summary ---
Author Organization [facility] Address [address] [address] Care Team Providers Care Tumblers Supervisor Name Role Phone Bayron Mg MD Primary Care Provider [phone] Allergies Active Allergy Reactions Criticality Noted Date [...] series) 2021 INFLUENZA VACCINE (#1) 2023 Insurance [facility] Address: [address] [address] Care Teams Tumblers Supervisor Relationship Specialty Start Date End Date Bayron Mg MD [address] [place] [phone] PCP - General Family Practice 02/16/21
--- OUTSIDE RECORDS SUMMARY | 2024-07-06 14:09 | XMS_ITS | Clinical Summary ---
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 Alcohol dependence ([facility]) 08/07/2018 Toxic liver disease 08/07/2018 Alcoholic cirrhosis of liver without ascites ([facility]) 08/07/2018 COPD (chronic obstructive pu lmonary disease) ([facility]) 08/07/2018 Major depressive disorder 08/07/2018 Cirrhosis of liver ([facility]) 09/04/2015 Viral hepatitis C without hepatic coma [...] Date Smoking Tobacco: Every Day Cigarettes 3 53.3 Started: 1970 Smokeless Tobacco: Never Tobacco Cessation:Ready [...] COVID-19 Vaccine (1 - 2023- season) 2023 Hepatitis C Completed 11/02/2021, 02/26, 02/28/2019, [...] this topic Medical Devices Implanted Type Area Merchandise Presentation Associate Device Identifier Shelf Expiration Date Model / Serial / Lot [employer]ma S[employer] Bio-Swivelock C Arthrex White/Black 4.75 X 19.1mm - [id number] Implanted:Qty: 1 on 03/29/2019 by Yogi Kirkpatrick MD at [facility] [employer] 09/24/2020 [id number] / / [id number] Al[employer] S[employer] Bio-Swivelock C Arthrex - [id number] Implanted:Qty: 1 on 03/29/2019 by Yogi Kirkpatrick MD at [facility] [employer] 10/25/2020 [id number] / / [id number] [employer] S[employer] Ar[employer]rex - [id number] Implanted:Qty: 1 on 03/29/2019 by Yogi Kirkpatrick MD at [facility] [employer] 09/24/2020 [id number] / / [id number] Alma Suture Ar[employer]rex - [id number] Implanted:Qty: 1 on 03/29/2019 by Yogi Kirkpatrick MD at [facility] [employer] 09/24/2020 [id number] / / [id number] Implant System Arthrex Proximal [employer]is - [id number] Implanted:Qty: 1 on 03/29/2019 by Yogi Kirkpatrick MD at [facility] [employer] 12/25/2022 [id number] / / [id number] Insurance MEDICAID [employer] Care Teams Rural Health Consultant Relationship Specialty Start Date End Date Bayron Mg MD [address] [place] [address] PCP - General FAMILY PRACTICE 08/01/18
--- OUTSIDE RECORDS SUMMARY | 2024-07-06 14:09 | XMS_ITS | Data Portability ---
Author Organization [facility], [address] [place] [address] Neurology ([place]) Address [address] [place] [phone] Assessment Encounter Date Assessment Date Assessment LastModified [...] Organization Details Recorded Time Parkinson 's disease 78432288 Active 024 Avril Campos MD [address] [place] [address], [phone] , [facility] 08/25/2023 15:01:55 Problem Notes None recorded. Medical Equipment None Reported. Allergies Allergen ID Allergen Name Allergen Category Reaction Reaction Severity Criticality Documentation Date Start Date Code Code System Note Provider Name and Address Organization Details Recorded Time 8812020 Product containin g penicilli n (product) medicatio n Not available Not available Not available 04/27/20232021 48531 8001 SNOMED Not Available Not Available Not Available [...] Not Available Not Availabl e Not Available albuterol sulfate HFA 90 mcg/actuation aerosol inhaler active Not Available Not Available Not Available carbidopa 25 mg-levodopa 100 mg tablet TAKE ONE TABLET BY MOUTH AT 8 A.M., AT 11 A.M., AT 2 P.M., 5PM, AND AT 8 P.M. Please make follow up appt for further scripts with dr galo, call [phone] active Not Available Not Available Not Avai lable fluticasone 232 mcg-salmetero l 14 mcg/actuation breath activated powdr active Not Available Not Available Not Available Vitals Date Recorded Body weight Heart rate Respiratory rate Oxygen saturation Oxygen saturation in Arterial blood by Pulse oximetry Systolic blood pressure Diastolic blood pressure Provider Name and Address Organization Details Last Updated DateTime 4 71782.7 9 g 87 /min 18 /min 95 % 95 % 139 mm[Hg] 81 mm[Hg] [facility] 4 16:55:41 Social History None recorded. Functional Status None recorded. Mental Status None recorded. Family History Nothing Reported. Medical History No medical history recorded. Past Encounters Encounter ID Performer Location Encounter Start Date Encounter Closed Date Diagnosis/Indication Diagnosis SNOMED-CT Code Diagnosis ICD10 Code Diagnosis Note [id number] Avril Campos MD [facility] Neurology ([place]) [address] [place] [address] 08/15/2023 16:52:36 08/26/2023 16:41:04 Parkinson's disease 66660506 G20.A1 Health Concerns Section Related Observation LastModified by Organization Detai ls LastModified Time None Recorded Concern Status LastModified by Organization Details LastModified Time None Recorded Advance Directives Directive None Recorded Payers Encounter Date Sequence Insurance Name Policy Number Policy William Covered Member ID William Member ID Guarantor Name 08/15/2023 1 [employer] (MEDICARE REPLACEMENT/A DVANTAGE - PPO) [id number] Notes Date Note Type Note [...] this time. Avril Campos MD [address] [place] [address], [phone], [facility] 08/25/2023 15:03:17
--- OUTSIDE RECORDS SUMMARY | 2024-07-06 14:09 | XMS_ITS | Encounter Summary ---
Author Organization [facility] Address [facility] [place] [address] Care Team Providers Care Press Set Up Person Name Role Phone Bayron Mg MD Primary Care Provider Encounter Details Date Type Department Care Team (Late st Contact Info) Description 09/02/2018 Abstract [facility]FL CONVERSION [address] [place] [address] , Generic Conversion, Social History Tobacco Use Types Packs/Day Years Used Date Smoking Tobacco: Every Day Cigarettes 1.5 53.3 Started: 1970 Smokeless Tobacco: Never Alcohol Use [...] on filedocumented in this encounter Care Teams Press Set Up Person Relationship Specialty Start Date End Date Bayron Mg MD [address] [place] [address] PCP - General FAMILY PRACTICE 08/01/18 documented as of this encounter
--- OUTSIDE RECORDS SUMMARY | 2024-07-06 14:09 | XMS_ITS | Clinical Summary ---
Author Organization [facility] Address [address] [address] Care Team Providers Care Associate Medical Director Name Role Phone Bayron Mg MD Primary Care Provider [phone] Source Comments [facility],non-owned Affiliates and Associated Physician Practices is amultiple site organization consisting of ambulatory clinics and hospital sitesin [place], [place], [place] and [place]. This disclosure is being madepursuant to the Care Everywhere program and may not contain all information available regarding this patient. Last updated 17.[facility] Allergies Active Allergy Reactions Criticality Noted Date [...] varices. > Dictated by Ravinder Sandra MD (presidential support specialist). PT 10/09/21 Liver Frailty Score Frailty Index [...] evidence of periapical abscess. Needs: ID consult +[facility] Department SW worked to arrange PT through [facility] locally to his home. His per [...] to quit smoking. Leana Okeefe M.D., PhD., [facility] Visit with Dr. Javed 12/29/21 Patient Instructions [...] Department Care Team Description 04/18/2024 11:00 AM STOVE BOTTOM WORKER Office Visit [facility] CSM [address]L [address] [address] [facility] [place] [address] Isabel Holliday APRN-CNP HCC (hepatocellular carcinoma) (Primary Dx) 04/18/2024 10:30 AM STOVE BOTTOM WORKER - 04/18/2024 11:59 PM [facility] Hospital Encounter [facility] CAT SCAN [address] [place] [address] Isabel Holliday APRN-CNP Discharge Disposition: Home or Self Care 04/18/2024 10:00 AM STOVE BOTTOM WORKER - 04/18/2024 10:29 AM [facility] Hospital Encounter [facility] OP DRAW STATION [address] [place] [address] Isabel Holliday APRN-CNP Discharge Disposition: Home or [...] Comments Blood Pressure 148/85 04/18/2024 11:27 AM STOVE BOTTOM WORKER Pulse 99 04/18/2024 11:27 AM STOVE BOTTOM WORKER Temperature 36.2 C (97.2 F) 04/18/2024 11:27 AM STOVE BOTTOM WORKER Respiratory Rate 14 04/18/2024 11:27 AM STOVE BOTTOM WORKER Oxygen Saturation 95% 04/18/2024 11:27 AM STOVE BOTTOM WORKER Inhaled Oxygen Concentration - - Weight 86.2 kg (190 lb) 04/18/2024 11:27 AM STOVE BOTTOM WORKER Height 180.3 cm (5' 10.98 ) 04/18/2024 11:27 AM STOVE BOTTOM WORKER Body Mass Index 26.51 04/18/2024 11:27 AM STOVE BOTTOM WORKER Plan of Treatment Upcoming Encounters Date Type Department Care Team (Late st Contact Info) Description 07/19/2024 11:30 AM CDT Appointment [facility] [address] [place] [address] 07/19/2024 12:30 PM CDT Appointment [facility] MRI [address] [place] [id number] Antwon Marmolejo MD [address] [place] [address] 07/25/2024 10:30 AM CDT Office Visit [facility] [address] [facility] [place] [address] Isabel Holliday, PAPER COUNTER-COMMISSION ASSOCIATE [address] [facility] FIRST LEVEL [place] [address] Health Maintenance Due Date Last Done Comments [...] 1-dose series) 2021 COVID-19 VACCINE (1 - season) 2023 DEPRESSION SCREENING 03/28/2024 12/29/2021 MEDICARE AWV CALENDAR YEAR 2024 INFLUENZA VACCINE (Season Ended) 2024 LIPID TESTING 11/02/2026 11/02/2021 SCREENING FOR DIABETES 04/18/2027 , 07/13/2023, 04/06/2023, Additional history exists HEPATITIS C SCREENING Completed 07/08/2022 , 03/30/2022, 01/28/2022, Additional history exists HIB VACCINE Aged Out No longer eligi ble based on patient's age to complete this topic HPV VACCINE Aged Out No longer eligi ble based on patient's age to complete this topic MENINGOCOCCAL (Group B) VACCINE SHARED DECISION-MAKING Aged Out No longer eligible based on patient's age to complete this topic MENINGOCOCCAL GROUPS A/C/Y/W VACCINE Aged Out No longer eligible based on patient's age to complete this topic Goals Goal Patient Goal Type Associated Problems Recent Progress Patient-Stated? Author Medication Management General On track( 025 11:32 AM STOVE BOTTOM WORKER) Carlton Herring, RN Note: Expected end date: Interventions: Take all medications as prescribed Let your doctor know right away about any changes in your medications Make sure to request a refill of your medication at least one week prior to your last dose Procedures Procedure Name Priority Date/Time Associated Diagnosis Comments PT-INR [facility] Routine 04/18/2024 11:21 AM STOVE BOTTOM WORKER HCC (hepatocellular carcinoma) COMPREHENSIVE METABOLIC PANEL Routine 04/18/2024 11:21 AM STOVE BOTTOM WORKER HCC (hepatocellular carcinoma) CBC W AUTO DIFFERENTIAL Routine 04/18/2024 11:21 AM STOVE BOTTOM WORKER HCC (hepatocellular carcinoma) ALPHA FETOPROTEIN BLOOD TUMOR MARKER Routine 04/18/2024 11:21 AM STOVE BOTTOM WORKER HCC (hepatocellular carcinoma) CT ABDOMEN MULTI PHASE W CONT Routine 04/18/2024 11:00 AM STOVE BOTTOM WORKER HCC (hepatocellular carcinoma) CREATININE - POCT INTERFACED Routine 04/18/2024 10:38 AM STOVE BOTTOM WORKER LIPID PROFILE Routine 11/02/2021 1:13 PM CDT Encounter for pre-transplant evaluation for liver transplant Chronic hepatitis C without hepatic coma Other cirrhosis of liver HCC (hepatocellular carcinoma) Chronic obstructive pulmonary disease, unspecified COPD type HEPATITIS C ANTIBODY Routine 11/02/2021 1:13 PM CDT Encounter for pre-transplant evaluation for liver transplant Chronic hepatitis C without hepatic coma Other cirrhosis of liver HCC (hepatocellular carcinoma) Chronic obstructive pulmonary disease, unspecified COPD type from Last 3 Months or Most Recently Relevant to Health Maintenance Results * (ABNORMAL) PT-INR [facility] (04/18/2024 11:21 AM STOVE BOTTOM WORKER) PT 15.8(H) 12.1 - 14.8 Seconds 04/18/2024 12:06 PM [facility] INR 1.3 See Comment 04/18/2024 12:06 PM [facility] Comment:The suggested therap eutic range for standard coumadin (warfarin) therapy is an INR of 2.0-3.0. For high-risk patients (Mechanical Mitral Valve Prosthesis, etc.), the suggested prophylactic therapeutic range is an INR of 2.5-3.5. Blood BLOOD SPECIMEN / Unknown Lab Venipuncture / Unknown 04/18/2024 11:21 AM STOVE BOTTOM WORKER 04/18/2024 11:40 AM STOVE BOTTOM WORKER Isabel Holliday PAPER COUNTER-COMMISSION ASSOCIATE LAB - COAGULATIO N ORDERABLES Performing Organization Address City/[facility]/ZIP Co de Phone Number [facility] [address] [place] [address], [facility] [phone] * ALPHA FETOPROTEIN BLOOD TUMOR MARKER (04/18/2024 11:21 AM STOVE BOTTOM WORKER) [facility] Alpha-Fetoprote in Tumor Marker 2.8 <=8.3 ng/mL 04/18/2024 12:31 PM [facility] Comment: AFP values will vary depending on testing procedure used. Results are not comparable across different methods. AFP values obtained by [facility] using an [employer] Alinity Immunoassay. Blood BLOOD SPECIMEN / Unknown Lab Venipuncture / Unknown 04/18/2024 11:21 AM STOVE BOTTOM WORKER 04/18/2024 11:44 AM [facility] Isabel Mg CHRISTINA-COMMISSION ASSOCIATE LAB - CHEMISTRY ORDERABLES Performing Organization Address [facility]/ZIP Co de Phone Number [facility] [address] [place] [address], [facility] [phone] * (ABNORMAL) CBC WITH DIFFERENTIAL (04/18/2024 11:21 AM STOVE BOTTOM WORKER) [facility] WBC 3.1(L) 4.0 - 10.7 x10E9/L 04/18/2024 12:21 PM [facility] RBC Count 3.09(L) 4.30 - 5.80 x10E12/L 04/18/2024 12:21 PM [facility] Hemoglobin 12.7(L) 13.3 - 17.5 g/dL 04/18/2024 12:21 PM [facility] Hematocrit 35.5(L) 38.7 - 51.1 % 04/18/2024 12:21 PM [facility] MCV 114.9(H) 80.0 - 98.0 fL 04/18/2024 12:21 PM [facility] MCH 41.1(H) 26.7 - 33.6 pg 04/18/2024 12:21 PM [facility] MCHC 35.8 31.7 - 36.3 g/dL 04/18/2024 12:21 PM [facility] RDW-CV 14.7 11.3 - 14.8 % 04/18/2024 12:21 PM [facility] Platelet Count 68(L) 150 - 420 x10E9/L 04/18/2024 12:21 PM [facility] MPV 10.9 7.8 - 11.4 fL 04/18/2024 12:21 PM [facility] Neutrophil % 48.5 41.0 - 74.0 % 04/18/2024 12:21 PM [facility] Lymphocyte % 35.7 17.0 - 47.0 % 04/18/2024 12:21 PM [facility] Monocyte % 13.6(H) 3.0 - 11.0 % 04/18/2024 12:21 PM [facility] Eosinophil % 1.6 0.0 - 7.0 % 04/18/2024 12:21 PM [facility] Basophil % 0.3 0.0 - 1.6 % 04/18/2024 12:21 PM [facility] Immature Granulocytes % 0.3 0.0 - 1.0 % 04/18/2024 12:21 PM [facility] Neutrophil Absolute 1.49(L) 1.60 - 7.50 x10E9/L 04/18/2024 12:21 PM [facility] Lymphocyte Absolute 1.10 1.00 - 4.40 x10E9/L 04/18/2024 12:21 PM [facility] Monocyte Absolute 0.42 0.15 - 1.00 x10E9/L 04/18/2024 12:21 PM [facility] Eosinophil Absolute 0.05 0.00 - 0.60 x10E9/L 04/18/2024 12:21 PM [facility] Basophil Absolute 0.01 0.00 - 0.13 x10E9/L 04/18/2024 12:21 PM [facility] Blood BLOOD SPECIMEN / Unknown Lab Venipuncture / Unknown 04/18/2024 11:21 AM STOVE BOTTOM WORKER 04/18/2024 11:44 AM STOVE BOTTOM WORKER Isabel Holliday PAPER COUNTER-COMMISSION ASSOCIATE LAB - HEMATOLOGY ORDERABLES [facility] [address] [place] [address], [facility] [phone] * (ABNORMAL) COMPREHENSIVE METABOLIC PANEL (04/18/2024 11:21 AM [facility]) BUN 9 7 - 26 mg/dL 04/18/2024 12:16 PM [facility] Creatinine 0.69(L) 0.71 - 1.16 mg/dL 04/18/2024 12:16 PM [facility] Sodium 134(L) 136 - 145 mmol/L 04/18/2024 12:16 PM [facility] Potassium 3.8 3.5 - 4.5 mmol/L 04/18/2024 12:16 PM [facility] Chloride 100 98 - 107 mmol/L 04/18/2024 12:16 PM [facility] CO2 23 22 - 29 mmol/L 04/18/2024 12:16 PM [facility] Glucose 115(H) 70 - 99 mg/dL 04/18/2024 12:16 PM [facility] Calcium 8.9 8.4 - 10.2 mg/dL 04/18/2024 12:16 PM [facility] Protein Total 7.2 6.0 - 8.3 g/dL 04/18/2024 12:16 PM [facility] Albumin 3.2(L) 3.4 - 5.0 g/dL 04/18/2024 12:16 PM [facility] Bilirubin Total 1.0 0.2 - 1.2 mg/dL 04/18/2024 12:16 PM [facility] Alkaline Phosphatase 190(H) 40 - 150 U/L 04/18/2024 12:16 PM [facility] ALT 16 5 - 55 U/L 04/18/2024 12:16 PM [facility] AST 53(H) 5 - 34 U/L 04/18/2024 12:16 PM [facility] Anion Gap 11 6 - 16 04/18/2024 12:16 PM [facility] BUN/Creatinine Ratio 13 7 - 23 04/18/2024 12:16 PM STOVE BOTTOM WORKER [facility] Osmolality Calculated 278 275 - 295 mOsm/kg 04/18/2024 12:16 PM STOVE BOTTOM WORKER [facility] Albumin/Globulin Ratio 0.8(L) 1.1 - 2.3 04/18/2024 12:16 PM STOVE BOTTOM WORKER [facility] eGFR by CKD-EPI >90 >=90 mL/min/1.7 3 m2 04/18/2024 12:16 PM STOVE BOTTOM WORKER [facility] Blood BLOOD SPECIMEN / Unknown Lab Venipuncture / Unknown 04/18/2024 11:21 AM STOVE BOTTOM WORKER 04/18/2024 11:44 AM STOVE BOTTOM WORKER Isabel Holliday PAPER COUNTER-COMMISSION ASSOCIATE LAB - CHEMISTRY ORDERABLES [facility] [address] [place] [address], [facility] [phone] * CT Abdomen Multi Phase W Cont (04/18/2024 11:00 AM STOVE BOTTOM WORKER) Anatomical Region Laterality Modality Abdomen Computed Tomogra phy 04/18/2024 1:57 PM STOVE BOTTOM WORKER Impressions 04/18/2024 2:03 PM STOVE BOTTOM WORKER Impression: 1.Nonviable treatment cavity in segment 6/7 without suspicious features (LR TR nonviable). 2.Hepatic cirrhosis with sequela of portal hypertension. 3.No new suspicious observations. > Interpreting Provider: Stas Shipley MD on 04/18/2024 2:03 PM Narrative 04/18/2024 2:03 PM STOVE BOTTOM WORKER PROCEDURE: CT ABDOMEN MULTI PHASE W CONT [...] the spine. Soft tissues: Normal. Procedure Note Stsa Shipley MD - 04/18/2024 PROCEDURE: CT ABDOMEN [...] MD on 04/18/2024 2:03 PM Isabel Holliday APRN-COMMISSION ASSOCIATE CT ORDERABLES * CREATININE - POCT INTERFACED (04/18/2024 10:38 AM STOVE BOTTOM WORKER) [facility] Creatinine POCT 0.91 0.30 - 1.30 mg/dL 04/18/2024 10:44 AM STOVE BOTTOM WORKER [facility] eGFR >90 >=90 mL/min/1.7 3 m2 04/18/2024 10:44 AM STOVE BOTTOM WORKER [facility] Blood BLOOD SPECIMEN / Unknown 04/18/2024 10:38 AM STOVE BOTTOM WORKER 04/18/2024 10:44 AM STOVE BOTTOM WORKER Isabel Holliday APRN-COMMISSION ASSOCIATE LAB - POINT OF C ARE ORDERABLES Performing Organization Address [facility]/ZIP Co de Phone Number [address] [address], [facility] [phone] * (ABNORMAL) HEPATITIS C ANTIBODY (11/02/2021 1:13 PM CDT) [facility] Hepatitis C Antibody Reactive( A) Non-react ita 11/02/2021 2:44 PM CDT [facility] Comment:Hepatitis C Antibody screen is consistent [...] - CHEMISTRY ALICIA CORRALES Performing Organization Address City/[facility]/ZIP Co de Phone Number [address] [address], [place] [phone] * (ABNORMAL) LIPID PROFILE (11/02/2021 1:13 PM CDT) Cholesterol Total 100 <200 mg/dL 11/02/2021 1:49 PM [facility] HDL 28(L) >40 mg/dL 11/02/2021 1:49 PM [facility] Comment: ATP III Classification of HDL Cholesterol: <40 mg/dL: Considered a major risk factor. >60 mg/dL: Considered a negative risk factor. LDL Calculated 59 <100 mg/dL 11/02/2021 1:49 PM [facility] Comment: ATP III Classification of LDL Cholesterol: <100 mg/dL: Optimal 100 - 129 mg/dL: Near Optimal/Above Optimal 130 - 159 mg/dL: Borderline High 160 - 189 mg/dL: High >190 mg/dL: Very High Triglycerides 63 <150 mg/dL 11/02/2021 1:49 PM [facility] Comment: ATP III Classification of Triglycerides: <150 mg/dL: Normal 150 - 199 mg/dL: Borderline High 200 - 400 mg/dL: High >500 mg/dL: Very High Blood BLOOD SPECIMEN / Unknown Lab Venipuncture / Unknown 11/02/2021 1:13 PM CDT 11/02/2021 1:25 PM CDT Henny Dunne MD LAB - CHEMISTRY ALICIA CORRALES [facility] Organization Address City/State/ZIP Co de Phone Number [facility] [address] [place] [address], [facility] [phone] from Last 3 Months or Most Recently Relevant to Health Maintenance Care Teams Associate Medical Director Relationship Specialty Start Date End Date Bayron Mg MD [address] [place] [address] PCP - General 09/30/15
--- OUTSIDE RECORDS SUMMARY | 2024-07-06 14:09 | XMS_ITS ---
Author Organization [facility] Address [address] [place] [address] Care Team Providers Care Belt Builder Helper Name Role Phone Bayron Mg MD Primary Care Provider [phone] Active Problems Problem Noted Date Diagnosed Date [...] varices. > Dictated by Ravinder Sandra MD (chairman president and chief executive officer). PT 10/09/21 Liver Frailty Score Frailty Index [...] evidence of periapical abscess. Needs: ID consult +[facility] Department SW worked to arrange PT through [facility] locally to his home. His per [...] to quit smoking. Leana Maldonado, M.D., PhD., [facility] Visit with Dr. Javed 12/29/21 Patient Instructions [...] treatments are documented for this patient in [facility]. Treatments may have been administered in another system. Lifetime Dose Tracking * Chemical Lifetime Dose Automatic Entry Manual Entr y Dose Length Product 8,716 mGy-cm 8,716 mGy-cm 0 mGy-cm
== END 2024-07-06 14:07 | disposition home or self-care (01) ==
LOC: CHSIMG 14:07
PROVIDERS: PCP Family Medicine; Visit Provider Family Medicine
DX: R42 Dizziness and giddiness (principal); R06.02 Shortness of breath
CPT/HCPCS: 93880

== ENCOUNTER 2024-07-12 10:47 | Outpatient (CLI) | payer MEDICARE, MEDICAID, SELFPAY ==
--- NOTE | ~2024-07-12 | MR_ITS ---
MRI of the brain Clinical History: Head injury Technique: Axial and sagittal T1-weighted images were acquired. These were followed by axial T2-weigh chandana, diffusion weighted, gradient, and FLAIR images. Following intravenous administration of 15 cc Mu ltiHance gadolinium, T1-weighted fat-sat imaging was performed in the axial and coronal planes. COMPARISON: 06/10/2022 Findings: Stable T1 hyperintense signal in basal ganglia. No acute infarct, internal hemorrhage or ma ss lesion. Ventricles and subarachnoid spaces are unremarkable. Orbits are unremarkable. There is mild left maxi llary sinus disease. Remaining paranasal sinuses and mastoid air cells are clear. Major intracranial flow voids are intact. Sagittal midline structures are intact. No abnormal postcontrast enhancement identified. IMPRESSION: No acute abnormality. Stable T1 hyperintense signal basal ganglia. Diagnostic considerations are unchanged from prior repor t. Reviewed, dictated [place] [facility] [place] IMPRESSION: No acute abnormality. Stable T1 hyperintense signal basal ganglia. Diagnostic considerations are unch anged from prior report.
--- OUTSIDE RECORDS SUMMARY | 2024-07-12 11:43 | XMS_ITS | Data Portability ---
Author Organization [facility] PENDING SALE TO [facility], [address] [place] [address] Neurology ([place]) Address [address] [place] [phone] Assessment Encounter Date Assessment Date Assessment LastModified [...] Organization Details Recorded Time Parkinson 's disease 06928639 Active 024 Avril Campos MD [address] [place] [address], [phone] , [facility] 08/25/2023 15:01:55 Problem Notes None recorded. Medical Equipment None Reported. Allergies Allergen ID Allergen Name Allergen Category Reaction Reaction Severity Criticality Documentation Date Start Date Code Code System Note Provider Name and Address Organization Details Recorded Time 3223842 Product containin g penicilli n (product) medicatio n Not available Not available Not available 04/27/20232021 20745 8001 SNOMED Not Available Not Available Not [...] Address Organization Details Last Updated DateTime 4 30870.7 9 g 87 /min 18 /min 95 % 95 % 139 mm[Hg] 81 mm[Hg] [facility] 4 16:55:41 Social History None recorded. Functional Status None recorded. Mental Status None recorded. Family History Nothing Reported. Medical History No medical history recorded. Past Encounters Encounter ID Performer Location Encounter Start Date Encounter Closed Date Diagnosis/Indication Diagnosis SNOMED-CT Code Diagnosis ICD10 Code Diagnosis Note [id number] Avril Campos MD [facility] Neurology ([place]) [address] [place] [address] 08/15/2023 16:52:36 08/26/2023 16:41:04 Parkinson's disease 13997917 G20.A1 Health Concerns Section Related Observation LastModified by Organization Detai ls LastModified Time None Recorded Concern Status LastModified by Organization Details LastModified Time None Recorded Advance Directives Directive None Recorded Payers Encounter Date Sequence Insurance Name Policy Number Policy William Covered Member ID William Member ID Guarantor Name 08/15/2023 1 [employer] (MEDICARE REPLACEMENT/A DVANTAGE - PPO) [id number] Notes Date Note Type Note [...] this time. Avril Campos MD [address] [place] [address], [phone], [facility] 08/25/2023 15:03:17
--- OUTSIDE RECORDS SUMMARY | 2024-07-12 11:43 | XMS_ITS | Clinical Summary ---
Author Organization [facility], [facility] Address [address] [place] [address] Care Team Providers Care Online Community Manager Name Role Phone Bayron Mg MD Primary Care Provider [phone] Source Comments [facility],non-owned Affiliates and Associated Physician Practices is amultiple site organization consisting of ambulatory clinics and hospital sitesin [place], [place], [place] and [place]. This disclosure is being madepursuant to the Care Everywhere program and may not contain all information available regarding this patient. Last updated 17.[facility] Allergies Active Allergy Reactions Criticality Noted Date Comments Penicillins Urticaria Medium 09/02/2021 Medications * Be aware that medications may not be up to date on this document. Alwaysverify current medications with the patient. QUEtiapine (SEROQUEL) 50 MG tablet Take 1 (one) tablet by mouth 2 times daily Active traZODone (DESYREL) 50 MG tablet Take 1 (one) tablet by mouth at bedtime Active Albuterol Sulfate 108 (90 Base) MCG/ACT Inhale 2 puffs by mouth 4 times daily Active carbidopa-levodo pa (Sinemet) 10-100 MG tablet Take 1 (one) tablet by mouth once daily 2 Active fluticasone hfa 110 (Flovent HFA 110) 110 MCG/ACT inhaler Inhale 2 (two) puffs by mouth 2 times daily Active albuterol HFA (Proventil; Ventolin; Proair) 108 (90 Base) MCG/ACT inhaler Inhale 2 (two) puffs by mouth as needed 1 Active citalopram (CeleXA) 20 MG tablet Take 2 (two) tablets by mouth once daily 1 Active risperiDONE (RisperDAL) 3 MG tablet Take 4 mg by mouth once daily 1 Active nicotine ( Nicotine Transdermal System) 21 MG/24HR patchIndications :Nicotine Dependence Apply 1 patch to daily X 6 weeks, then apply 14 mg patch daily X 2 weeks (#14 patches), then 7 mg patch daily X 2 weeks (#14 patches) Reasons: Nicotine Addiction 42 patch 2 Active Additional Information Patient not taking.Reported on 01/13/2024 lactulose (Chronulac) 10 GM/15ML solution Take 5 cc twice daily and titrate to achieve 2-3 soft bowel movements daily. 946 mL 11 2 Active Active Problems Problem Noted Date Diagnosed [...] varices. > Dictated by Ravinder Sandra MD (cardiac cath lab radiology technologist). PT 10/09/21 Liver Frailty Score Frailty Index Value: 6.04 (07/15/22 1000) Assessment: Olivier comes into the clinic [...] evidence of periapical abscess. Needs: ID consult +[facility] Department SW worked to arrange PT through [facility] locally to his home. His per [...] to quit smoking. Leana Okeefe M.D., PhD., [facility] Visit with Dr. Javed 12/29/21 Patient [...] Department Care Team Description 04/18/2024 11:00 AM NEUROPSYCHOLOGY SERVICE DIRECTOR Office Visit [facility] RAD CSM [address] [place] [address] Isabel Holliday APRN-CNP HCC (hepatocellular carcinoma) (Primary Dx) 04/18/2024 10:30 AM NEUROPSYCHOLOGY SERVICE DIRECTOR - 04/18/2024 11:59 PM [facility] Hospital Encounter [facility] CAT SCAN [address] [place] [address] Isabel Holliday APRN-CNP Discharge Disposition: Home or Self Care 04/18/2024 10:00 AM NEUROPSYCHOLOGY SERVICE DIRECTOR - 04/18/2024 10:29 AM [facility] Hospital Encounter [facility] LAB OP DRAW STATION [address] [place] [address] Isabel Holliday APRN-CNP Discharge Disposition: Home or [...] at Not on file Legal Sex Male 5:47 PM NEUROPSYCHOLOGY SERVICE DIRECTOR Gender Identity Not on file Sexual Orientation Not on file Last Filed Vital Signs Vital Sign Reading Time Taken Comments Blood Pressure 148/85 04/18/2024 11:27 AM NEUROPSYCHOLOGY SERVICE DIRECTOR Pulse 99 04/18/2024 11:27 AM NEUROPSYCHOLOGY SERVICE DIRECTOR Temperature 36.2 C (97.2 F) 04/18/2024 11:27 AM NEUROPSYCHOLOGY SERVICE DIRECTOR Respiratory Rate 14 04/18/2024 11:27 AM NEUROPSYCHOLOGY SERVICE DIRECTOR Oxygen Saturation 95% 04/18/2024 11:27 AM NEUROPSYCHOLOGY SERVICE DIRECTOR Inhaled Oxygen Concentration - - Weight 86.2 kg (190 lb) 04/18/2024 11:27 AM NEUROPSYCHOLOGY SERVICE DIRECTOR Height 180.3 cm (5' 10.98 ) 04/18/2024 11:27 AM NEUROPSYCHOLOGY SERVICE DIRECTOR Body Mass Index 26.51 04/18/2024 11:27 AM NEUROPSYCHOLOGY SERVICE DIRECTOR Plan of Treatment Upcoming Encounters Date Type Department Care Team (Late st Contact Info) Description 07/19/2024 11:30 AM CDT Appointment [facility] LAB OP DRAW STATION [address] [place] [address] 07/19/2024 12:30 PM CDT Appointment [facility] MRI [address] [place] [id number] Antwon Marmolejo MD [address] [place] [address] 07/25/2024 10:30 AM CDT Office Visit [facility] RAD CSM [address] [place] [address] Isabel Holliday, EMERGENCY DEPARTMENT COORDINATOR-TERRITORY SALES EXECUTIVE [address] [facility] [address] [place] [address] Health Maintenance Due Date Last Done Comments [...] 60-74 years 1-dose series) 2021 COVID-19 VACCINE ( - season) 2023 DEPRESSION SCREENING 03/28/2024 12/29/2021 [...] Management General On track( 025 11:32 AM NEUROPSYCHOLOGY SERVICE DIRECTOR) Carlton Herring, RN Note: Expected end date: Interventions: Take all medications as prescribed Let your doctor know right away about any changes in your medications Make sure to request a refill of your medication at least one week prior to your last dose Procedures Procedure Name Priority Date/Time Associated Diagnosis Comments PT-INR [facility] Routine 04/18/2024 11:21 AM NEUROPSYCHOLOGY SERVICE DIRECTOR HCC (hepatocellular carcinoma) COMPREHENSIVE METABOLIC PANEL Routine 04/18/2024 11:21 AM NEUROPSYCHOLOGY SERVICE DIRECTOR HCC (hepatocellular carcinoma) CBC W AUTO DIFFERENTIAL Routine 04/18/2024 11:21 AM NEUROPSYCHOLOGY SERVICE DIRECTOR HCC (hepatocellular carcinoma) ALPHA FETOPROTEIN BLOOD TUMOR MARKER Routine 04/18/2024 11:21 AM NEUROPSYCHOLOGY SERVICE DIRECTOR HCC (hepatocellular carcinoma) CT ABDOMEN MULTI PHASE W CONT Routine 04/18/2024 11:00 AM NEUROPSYCHOLOGY SERVICE DIRECTOR HCC (hepatocellular carcinoma) CREATININE - POCT INTERFACED Routine 04/18/2024 10:38 AM NEUROPSYCHOLOGY SERVICE DIRECTOR LIPID PROFILE Routine 11/02/2021 1:13 PM CDT [...] to Health Maintenance Results * (ABNORMAL) PT-INR [facility] (04/18/2024 11:21 AM NEUROPSYCHOLOGY SERVICE DIRECTOR) PT 15.8(H) 12.1 - 14.8 Seconds 04/18/2024 12:06 PM [facility] INR 1.3 See Comment 04/18/2024 12:06 PM [facility] Comment:The suggested therap eutic range for standard coumadin (warfarin) therapy is an INR of 2.0-3.0. For high-risk patients (Mechanical Mitral Valve Prosthesis, etc.), the suggested prophylactic therapeutic range is an INR of 2.5-3.5. Blood BLOOD SPECIMEN / Unknown Lab Venipuncture / Unknown 04/18/2024 11:21 AM NEUROPSYCHOLOGY SERVICE DIRECTOR 04/18/2024 11:40 AM NEUROPSYCHOLOGY SERVICE DIRECTOR [facility] COAGULATION ORDERA BLES Final Result Performing Organization Address City/[facility]/ZIP Co de Phone Number [address] [address], [facility] [phone] * ALPHA FETOPROTEIN BLOOD TUMOR MARKER (04/18/2024 11:21 AM NEUROPSYCHOLOGY SERVICE DIRECTOR) [facility] Alpha-Fetoprote in Tumor Marker 2.8 <=8.3 ng/mL 04/18/2024 12:31 PM [facility] Comment: AFP values will vary depending on testing procedure used. Results are not comparable across different methods. AFP values obtained by [facility] using an [employer] Immunoassay. Blood BLOOD SPECIMEN / Unknown Lab Venipuncture / Unknown 04/18/2024 11:21 AM NEUROPSYCHOLOGY SERVICE DIRECTOR 04/18/2024 11:44 AM NEUROPSYCHOLOGY SERVICE DIRECTOR Isabel [facility] - CHEMISTRY ORDERABL ES Final Result Performing Organization Address [facility] Co de Phone Number [address] [address], [facility] [phone] * (ABNORMAL) CBC WITH DIFFERENTIAL (04/18/2024 11:21 AM NEUROPSYCHOLOGY SERVICE DIRECTOR) [facility] WBC 3.1(L) 4.0 - 10.7 x10E9/L 04/18/2024 12:21 PM [facility] RBC Count 3.09(L) 4.30 - 5.80 x10E12/L 04/18/2024 12:21 PM [facility] Hemoglobin 12.7(L) 13.3 - 17.5 g/dL 04/18/2024 12:21 PM [facility] Hematocrit 35.5(L) 38.7 - 51.1 % 04/18/2024 12:21 PM [facility] MCV 114.9(H) 80.0 - 98.0 fL 04/18/2024 12:21 PM [facility] MCH 41.1(H) 26.7 - 33.6 pg 04/18/2024 12:21 PM [facility] MCHC 35.8 31.7 - 36.3 g/dL 04/18/2024 12:21 PM [facility] RDW-CV 14.7 11.3 - 14.8 % 04/18/2024 12:21 PM [facility] Platelet Count 68(L) 150 - 420 x10E9/L 04/18/2024 12:21 PM [facility] MPV 10.9 7.8 - 11.4 fL 04/18/2024 12:21 PM [facility] Neutrophil % 48.5 41.0 - 74.0 % 04/18/2024 12:21 PM [facility] Lymphocyte % 35.7 17.0 - 47.0 % 04/18/2024 12:21 PM [facility] Monocyte % 13.6(H) 3.0 - 11.0 % 04/18/2024 12:21 PM [facility] Eosinophil % 1.6 0.0 - 7.0 % 04/18/2024 12:21 PM [facility] Basophil % 0.3 0.0 - 1.6 % 04/18/2024 12:21 PM [facility] Immature Granulocytes % 0.3 0.0 - 1.0 % 04/18/2024 12:21 PM [facility] Neutrophil Absolute 1.49(L) 1.60 - 7.50 x10E9/L 04/18/2024 12:21 PM [facility] Lymphocyte Absolute 1.10 1.00 - 4.40 x10E9/L 04/18/2024 12:21 PM [facility] Monocyte Absolute 0.42 0.15 - 1.00 x10E9/L 04/18/2024 12:21 PM [facility] Eosinophil Absolute 0.05 0.00 - 0.60 x10E9/L 04/18/2024 12:21 PM [facility] Basophil Absolute 0.01 0.00 - 0.13 x10E9/L 04/18/2024 12:21 PM [facility] Blood BLOOD SPECIMEN / Unknown Lab Venipuncture / Unknown 04/18/2024 11:21 AM [facility] 04/18/2024 11:44 AM NEUROPSYCHOLOGY SERVICE DIRECTOR us Isabel Gagelivan EMERGENCY DEPARTMENT COORDINATOR-TERRITORY SALES EXECUTIVE LAB - HEMATOLOGY ORDERAB LES Final Result [facility] [address] [place] [address], [facility] [phone] * (ABNORMAL) COMPREHENSIVE METABOLIC PANEL (04/18/2024 11:21 AM NEUROPSYCHOLOGY SERVICE DIRECTOR) BUN 9 7 - 26 mg/dL 04/18/2024 12:16 PM [facility] Creatinine 0.69(L) 0.71 - 1.16 mg/dL 04/18/2024 12:16 PM [facility] Sodium 134(L) 136 - 145 mmol/L 04/18/2024 12:16 PM [facility] Potassium 3.8 3.5 - 4.5 mmol/L 04/18/2024 12:16 PM [facility] Chloride 100 98 - 107 mmol/L 04/18/2024 12:16 PM [facility] CO2 23 22 - 29 mmol/L 04/18/2024 12:16 PM [facility] Glucose 115(H) 70 - 99 mg/dL 04/18/2024 12:16 PM [facility] Calcium 8.9 8.4 - 10.2 mg/dL 04/18/2024 12:16 PM [facility] Protein Total 7.2 6.0 - 8.3 g/dL 04/18/2024 12:16 PM [facility] Albumin 3.2(L) 3.4 - 5.0 g/dL 04/18/2024 12:16 PM [facility] Bilirubin Total 1.0 0.2 - 1.2 mg/dL 04/18/2024 12:16 PM [facility] Alkaline Phosphatase 190(H) 40 - 150 U/L 04/18/2024 12:16 PM [facility] ALT 16 5 - 55 U/L 04/18/2024 12:16 PM [facility] AST 53(H) 5 - 34 U/L 04/18/2024 12:16 PM [facility] Anion Gap 11 6 - 16 04/18/2024 12:16 PM [facility] BUN/Creatinine Ratio 13 7 - 23 04/18/2024 12:16 PM [facility] Osmolality Calculated 278 275 - 295 mOsm/kg 04/18/2024 12:16 PM [facility] Albumin/Globulin Ratio 0.8(L) 1.1 - 2.3 04/18/2024 12:16 PM [facility] eGFR by CKD-EPI >90 >=90 mL/min/1.7 3 m2 04/18/2024 12:16 PM [facility] Blood BLOOD SPECIMEN / Unknown Lab Venipuncture / Unknown 04/18/2024 11:21 AM NEUROPSYCHOLOGY SERVICE DIRECTOR 04/18/2024 11:44 AM NEUROPSYCHOLOGY SERVICE DIRECTOR us Isabel Holliday EMERGENCY DEPARTMENT COORDINATOR-TERRITORY SALES EXECUTIVE LAB - CHEMISTRY ORDERABL ES Final Result [facility] [address] [place] [address], [facility] [phone] * CT Abdomen Multi Phase W Cont (04/18/2024 11:00 AM NEUROPSYCHOLOGY SERVICE DIRECTOR) Anatomical Region Laterality Modality Abdomen Computed Tomogra phy 04/18/2024 1:57 PM NEUROPSYCHOLOGY SERVICE DIRECTOR Impressions 04/18/2024 2:03 PM NEUROPSYCHOLOGY SERVICE DIRECTOR Impression: 1.Nonviable treatment cavity in segment 6/7 without suspicious features (LR TR nonviable). 2.Hepatic cirrhosis with sequela of portal hypertension. 3.No new suspicious observations. > Interpreting Provider: Stas Shipley MD on 04/18/2024 2:03 PM Narrative 04/18/2024 2:03 PM NEUROPSYCHOLOGY SERVICE DIRECTOR PROCEDURE: CT ABDOMEN MULTI PHASE W CONT [...] MD on 04/18/2024 2:03 PM Isabel Holliday EMERGENCY DEPARTMENT COORDINATOR-TERRITORY SALES EXECUTIVE CT ORDERABLES Final Re sult * CREATININE - POCT INTERFACED (04/18/2024 10:38 AM NEUROPSYCHOLOGY SERVICE DIRECTOR) Pathologist [facility] Creatinine POCT 0.91 0.30 - 1.30 mg/dL 04/18/2024 10:44 AM NEUROPSYCHOLOGY SERVICE DIRECTOR [facility] eGFR >90 >=90 mL/min/1.7 3 m2 04/18/2024 10:44 AM NEUROPSYCHOLOGY SERVICE DIRECTOR [facility] Blood BLOOD SPECIMEN / Unknown 04/18/2024 10:38 AM NEUROPSYCHOLOGY SERVICE DIRECTOR 04/18/2024 10:44 AM NEUROPSYCHOLOGY SERVICE DIRECTOR Isabel Holliday EMERGENCY DEPARTMENT COORDINATOR-TERRITORY SALES EXECUTIVE LAB - POINT OF CARE ORDE RABDUYEN Final Result [place] [phone], [facility] [phone] * (ABNORMAL) HEPATITIS C ANTIBODY (11/02/2021 1:13 PM CDT) Pathologist [facility] Hepatitis C Antibody Reactive( A) Non-react ita 11/02/2021 2:44 PM CDT [facility] Comment:Hepatitis C Antibody screen is consistent with past or current infection with Hepatitis C Virus. Nucleic Acid Test (KAZ) for Hepatitis C Viral RNA should be performed for initial HCV workup, and for differentiating active/chronic infection from resolved infection. Blood BLOOD SPECIMEN / Unknown Lab Venipuncture / Unknown 11/02/2021 1:13 PM CDT 11/02/2021 1:24 PM CDT Henny Dunne MD LAB - CHEMISTRY ORDERABLES Fi nal Result [facility] [address] [place] [address], [facility] [phone] * (ABNORMAL) LIPID PROFILE (11/02/2021 1:13 PM CDT) Cholesterol Total 100 <200 mg/dL 11/02/2021 1:49 PM CDT [facility] HDL 28(L) >40 mg/dL 11/02/2021 1:49 PM T [facility] Comment: ATP III Classification of HDL Cholesterol: <40 mg/dL: Considered a major risk factor. >60 mg/dL: Considered a negative risk factor. LDL Calculated 59 <100 mg/dL 11/02/2021 1:49 PM CDT [facility] Comment: ATP III Classification of LDL Cholesterol: <100 mg/dL: Optimal 100 - 129 mg/dL: Near Optimal/Above Optimal 130 - 159 mg/dL: Borderline High 160 - 189 mg/dL: High >190 mg/dL: Very High Triglycerides 63 <150 mg/dL 11/02/2021 1:49 PM T [facility] Comment: ATP III Classification of Triglycerides: <150 mg/dL: Normal 150 - 199 mg/dL: Borderline High 200 - 400 mg/dL: High >500 mg/dL: Very High Blood BLOOD SPECIMEN / Unknown Lab Venipuncture / Unknown 11/02/2021 1:13 PM CDT 11/02/2021 1:25 PM CDT Henny Dunne MD LAB - CHEMISTRY ORDERABLES Fi nal Result [facility] [address] [place] [address], [facility] [phone] from Last 3 Months or Most Recently Relevant to Health Maintenance Insurance [facility] MANAGED MEDICARE ADV MEDICAID - [place] [facility] MANAGED MEDICARE ADV Care Teams Online Community Manager Relationship Specialty Start Date End Date Bayron Mg MD [address] [place] [phone] PCP - General 09/30/15
--- OUTSIDE RECORDS SUMMARY | 2024-07-12 11:43 | XMS_ITS ---
Author Organization [facility] Address [address] [place] [address] Care Team Providers Care Mate Chief Name Role Phone Bayron Mg MD Primary Care Provider [phone] Active Problems Problem Noted Date Diagnosed Date [...] > Dictated by Ravinder Sandra MD (resident services director). PT 10/09/21 Liver Frailty Score Frailty [...] evidence of periapical abscess. Needs: ID consult +[facility] [place] [facility] SW worked to arrange PT through [facility] locally to his home. His per [...] smoking. Leana Maldonado, M.D., PhD., [facility] Visit with Dr. Javed 12/29/21 Patient [...] coma 6 Cirrhosis of liver 09/04/2015 Current Treatment and Therapy Plans No current plan information found. Past Treatment and Therapy Plans No past plan information found. Lifetime Dose Tracking * Chemical Lifetime Dose Automatic Entry Manual Entr y Dose Length Product 8,716 mGy-cm 8,716 mGy-cm 0 mGy-cm
--- OUTSIDE RECORDS SUMMARY | 2024-07-12 11:43 | XMS_ITS | Clinical Summary ---
Author Organization [facility] Address [address] [place] [address] Phone Care Team Providers Care Infrastructure Developer Name Role Phone Bayron Mg MD Primary [...] Comments Blood Pressure 142/70 02/19/2019 12:54 PM LABOR CONCILIATOR Pulse 94 02/19/2019 12:54 PM LABOR CONCILIATOR Temperature 36.7 C (98.1 F) 02/19/2019 12:54 PM LABOR CONCILIATOR Respiratory Rate 18 02/19/2019 12:54 PM LABOR CONCILIATOR Oxygen Saturation 95% 02/19/2019 12:54 PM LABOR CONCILIATOR Inhaled Oxygen Concentration - - Weight 96.2 kg (212 lb) 02/19/2019 12:54 PM LABOR CONCILIATOR Height 180.3 cm (5' 11 ) 02/19/2019 12:54 PM LABOR CONCILIATOR Body Mass Index 29.57 02/19/2019 12:54 PM LABOR CONCILIATOR Plan of Treatment Health Maintenance Due Date [...] Insurance MEDICAID [employer] Care Teams Infrastructure Developer Relationship Specialty Start Date End Date Bayron Mg MD [address] [place] [address] PCP - General Pediatrics 01/17/18
--- OUTSIDE RECORDS SUMMARY | 2024-07-12 11:43 | XMS_ITS | Clinical Summary ---
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) 08/07/2018 COPD (chronic obstructive pu lmonary disease) ([facility]) 08/07/2018 Major depressive disorder 08/07/2018 Cirrhosis of liver ([facility]) 09/04/2015 Viral hepatitis C without hepatic [...] 5 Years) and At-Risk Patients (6 to 49 Years) (1 of 2 - PCV) 11/28/1966 [...] this topic Medical Devices Implanted Type Area Physical Chemist Device Identifier Shelf Expiration Date Model / Serial / Lot [place] [employer] Bio-Swivelock C Arthrex White/Black 4.75 X 19.1mm - [id number] Implanted:Qty: 1 on 03/29/2019 by Yogi Kirkpatrick MD at [employer] 09/24/2020 [id number] / / [id number] [employer] Bio-Swivelock C Arthrex - [id number] Implanted:Qty: 1 on 03/29/2019 by Yogi Kirkpatrick MD at [employer] 10/25/2020 [id number] / / [id number] [employer] - [id number] Implanted:Qty: 1 on 03/29/2019 by Yogi Kirkpatrick MD at [employer] 09/24/2020 [id number] / / [id number] [employer]rex - [id number] Implanted:Qty: 1 on 03/29/2019 by Yogi Kirkpatrick MD at [employer] 09/24/2020 [id number]-[id number] / / [id number] Implant System Arthrex Proximal [employer] - [id number] Implanted:Qty: 1 on 03/29/2019 by Yogi Kirkpatrick MD at [employer] 12/25/2022 [id number] / / [id number] Insurance MEDICAID [place] [address] Care Teams General Hardware Salesperson Relationship Specialty Start Date End Date Bayron Mg MD [address] [place] [address] PCP - General FAMILY PRACTICE 08/01/18
--- OUTSIDE RECORDS SUMMARY | 2024-07-12 11:43 | XMS_ITS | Clinical Summary ---
Author Organization [facility] Address [address] [place] [address] Care Team Providers Care Linen Attendant Name Role Phone Bayron Mg MD Primary Care Provider [phone] Allergies Active Allergy Reactions Criticality Noted Date [...] INFLUENZA VACCINE (#1) 2023 Insurance Care Teams Linen Attendant Relationship Specialty Start Date End Date Bayron Mg MD [address] [place] [phone] PCP - General Family Practice 02/16/21
--- OUTSIDE RECORDS SUMMARY | 2024-07-12 11:43 | XMS_ITS | Encounter Summary ---
Author Organization [facility] Address [facility] [place] [address] Care Team Providers Care Information Delivery Analyst Name Role Phone Bayron Mg MD Primary Care Provider [phone] Encounter Details Date Type Department Care Team (Late st Contact Info) Description 09/02/2018 Abstract SFL CONVERSION [address] [place] [address] , Generic Conversion, Social History Tobacco Use [...] on filedocumented in this encounter Care Teams Information Delivery Analyst Relationship Specialty Start Date End Date Bayron Mg MD [address] [place] [address] PCP - General FAMILY PRACTICE 08/01/18 documented as of this encounter
== END 2024-07-12 10:48 | disposition home or self-care (01) ==
PROVIDERS: PCP Family Medicine; Visit Provider Family Medicine
DX: S09.90XA Unspecified injury of head, initial encounter (principal)
CPT/HCPCS: 70553; A9577

== ENCOUNTER 2024-07-31 13:58 | Outpatient (CLI) | payer MEDICARE, MEDICAID, SELFPAY ==
--- NOTE | 2024-07-31 14:03 | ECHO_ITS ---
Patient Info Name: Olivier Street Age: 63 years : 1960 Gender: Male Ht: 71 in Wt: 190 lbs BSA: 2.09 m2 HR: 85 bpm BP: 153 / 83 mmHg Heart Rhythm: Sinus Rhythm Technical Quality: Fair Exam Date: 07/31/2024 3:07 PM Exam Location: Echo Lab Patient Status: Outpatient Admit Date: 07/31/2024 Staff Ordering Physician: Bayron Mg MD Mis Specialist: Sanjuanita Galvan RDCS Attending Provider: Bayron Mg MD Referring Physician: Haritha ALVARADO; Exam Type: CA echo doppler color flow Study Info Indications - SOB, Dizziness Complete two-dimensional, color flow and Doppler transthoracic echocardiogram is performed. Summary 1. Complete two-dimensional, color flow and Doppler transthoracic echocardiogram is performed. 2. Left ventricular chamber dimension is normal. 3. Left ventricular systolic function is normal, estimated at 60-65%. 4. The left ventricular diastolic function is grade I diastolic dysfunction. 5. E/e' 5 is not elevated. 6. There is mild aortic valve sclerosis. 7. No pulmonary hypertension, estimated pulmonary arterial systolic pressure is 26 mmHg. Left Ventricle E/e' 5 is not elevated. Left ventricular chamber dimension is normal. Left ventricular systolic function is normal, estimated at 60-65%. The left ventricular diastolic function is grade I diastolic dysfunction. Right Ventricle Right ventricular systolic function is normal and with normal TAPSE 2.8 cm. Right ventricular chamber dimension is normal. Left Atria Left atrial chamber dimension is normal. Right Atria Right atrial chamber dimension is normal. Aortic Valve The aortic valve is trileaflet. There is mild aortic valve sclerosis. There is no aortic valve stenosis. There is no aortic valve regurgitation. Pulmonic Valve There is no pulmonic regurgitation. Mitral Valve There is no mitral valve stenosis. There is no mitral valve regurgitation. Tricuspid Valve There is no tricuspid valve regurgitation. No pulmonary hypertension, estimated pulmonary arterial systolic pressure is 26 mmHg. Pericardium/Pleural There is no pericardial effusion. Inferior Vena Cava Normal inferior vena cava with >50% collapse upon inspiration consistent with normal right atrial pressure, 5 mmHg. Aorta The aortic root size at the sinus of Valsalva is normal. Left Ventricular Outflow Tract Name Value Normal LVOT 2D LVOT Diameter 2.1 cm LVOT Doppler LVOT Peak Velocity 95 cm/s LVOT Peak Gradient 4 mmHg LVOT Mean Gradient 2 mmHg LVOT VTI 17 cm LVOT VTI/AV VTI Ratio 0.8 LVOT Stroke Volume 61 ml LVOT CO 5.4 l/min LVOT CI 2.6 l/min/m2 Pulmonic Valve Name Value Normal RVOT Doppler RVOT Peak Gradient 3 mmHg PV Doppler PV Peak Velocity 125 cm/s PV Peak Gradient 6 mmHg Mitral Valve Name Value Normal MV Doppler MV Decel [place] 326 cm/s2 MV PHT 61 ms MV Area (PHT) 3.6 cm2 4.0-5.0 MV Diastolic Function MV E Peak Velocity 68 cm/s MV A Peak Velocity 83 cm/s MV E/A 0.8 MV Decel Time 209 ms MV Annular TDI MV Septal e' Velocity 12.8 cm/s >=8.0 MV E/e' (Septal) 5.3 <=8.0 MV Lateral e' Velocity 13.3 cm/s >=10.0 MV E/e' (Lateral) 5.1 <=8.0 MV e' Average 13.04 MV E/e' (Average) 5.2 Tricuspid Valve Name Value Normal TV Regurgitation Doppler TR Peak Velocity 228 cm/s TR Peak Gradient 21 mmHg Estimated PAP/RSVP RA Pressure 5 mmHg <=5 PA Systolic Pressure 26 mmHg <36 RV Systolic Pressure 26 mmHg <36 TV Annular TDI TV Lateral Magdalena s' Velocity 15.1 cm/s 9.5-18.7 Aortic Valve Name Value Normal AV Doppler AV Peak Velocity 119 cm/s AV Peak Gradient 6 mmHg AV Mean Gradient 3 mmHg AV VTI 21 cm AV Area (Cont Eq VTI) 2.9 cm2 >=3.0 AV Area (Cont Eq Angel Luis) 2.8 cm2 AV V1/V2 Ratio 0.80 AV Regurgitation 2D LVOT Area 3.5 cm2 Ventricles Name Value Normal LV Dimensions 2D/MM IVS Diastolic Thickness (2D) 1.1 cm 0.6-1.0 LVID Diastole (2D) 4.1 cm 4.2-5.8 LVIW Diastolic Thickness (2D) 1.1 cm 0.6-1.0 LVID Systole (2D) 2.9 cm 2.5-4.0 LVOT Diameter 2.1 cm LV Mass (2D Cubed) 153.30 g 88.00-224.00 LV Mass Index (2D Cubed) 73 g/m2 49-115 Relative Wall Thickness (2D) 0.55 LV Fractional Shortening/Ejection Fraction 2D/MM LV Fractional Shortening (2D) 30 % 25-43 LV EF (2D Teicholz) 58 % 52-72 LV Diastolic Volume (4C MOD) 127 ml LV EF (4C MOD) 57 % LV Diastolic Volume (2C MOD) 107 ml LV EF (2C MOD) 54 % LV Diastolic Volume (BP MOD) 118 ml 62-150 LV Diastolic Volume Index (BP MOD) 56 ml/m2 34-74 LV Systolic Volume (BP MOD) 54 ml 21-61 LV Systolic Volume Index (BP MOD) 26 ml/m2 11-31 LV EF (BP MOD) 54 % 52-72 LV Diastolic Length (4C) 8.0 cm LV Systolic Length (4C) 6.7 cm LV Stroke Volume (4C MOD) 73 ml Atria Name Value Normal LA Dimensions LA Volume (4C A-L) 43 ml LA Volume (BP A-L) 51 ml RA Dimensions RA Area (4C) 13.8 cm2 <=18.0 Report Signatures
--- OUTSIDE RECORDS SUMMARY | 2024-07-31 14:05 | XMS_ITS | Data Portability ---
Author Organization [facility], [address] [place] [address] Neurology ([place]) Address [address] [place] [phone] Assessment Encounter Date Assessment Date Assessment LastModified [...] Organization Details Recorded Time Parkinson 's disease 72930710 Active 024 Avril Campos MD [address] [place] [address], [phone] , [facility] 08/25/2023 15:01:55 Problem Notes None recorded. Medical Equipment None Reported. Allergies Allergen ID Allergen Name Allergen Category Reaction Reaction Severity Criticality Documentation Date Start Date Code Code System Note Provider Name and Address Organization Details Recorded Time 5376691 Product containin g penicilli n (product) medicatio n Not available Not available Not available 04/27/20232021 21771 8001 SNOMED Not Available [facility] 01/31/202 4 04:31:47 Medications Name Sig Start Date Stop Date [...] Address Organization Details Last Updated DateTime 4 19878.7 9 g 87 /min 18 /min 95 % 95 % 139 mm[Hg] 81 mm[Hg] [facility] 4 16:55:41 Social History None recorded. Functional Status None recorded. Mental Status None recorded. Family History Nothing Reported. Medical History No medical history recorded. Past Encounters Encounter ID Performer Location Encounter Start Date Encounter Closed Date Diagnosis/Indication Diagnosis SNOMED-CT Code Diagnosis ICD10 Code Diagnosis Note [id number] Avril Campos MD [facility] ([place]) [address] [place] [address] 08/15/2023 16:52:36 08/26/2023 16:41:04 Parkinson's disease 32961236 G20.A1 Health Concerns Section Related Observation LastModified by Organization Detai ls LastModified Time None Recorded Concern Status LastModified by Organization Details LastModified Time None Recorded Advance Directives Directive None Recorded Payers Encounter Date Sequence Insurance Name Policy Number Policy William Covered Member ID William Member ID Guarantor Name 08/15/2023 1 [facility] (MEDICARE REPLACEMENT/A DVANTAGE - PPO) [id number] Notes Date Note Type Note [...] this time. Avril Campos MD [address] [facility], [place], [address], [facility] 08/25/2023 15:03:17
--- OUTSIDE RECORDS SUMMARY | 2024-07-31 14:05 | XMS_ITS | Clinical Summary ---
Author Organization [facility] Address [address] [place] [address] Care Team Providers Care Legal Investigator Name Role Phone Bayron Mg MD Primary Care Provider [phone] Source Comments [facility],non-owned Affiliates and Associated Physician Practices is amultiple site organization consisting of ambulatory clinics and hospital sitesin [place], [place], [place] and [place]. This disclosure is being madepursuant to the Care Everywhere program and may not contain all information available regarding this patient. Last updated 17.[facility] Allergies Active Allergy Reactions Criticality Noted Date [...] varices. > Dictated by Ravinder Sandra MD (cath lab radiology technician). PT 10/09/21 Liver Frailty Score Frailty Index [...] evidence of periapical abscess. Needs: ID consult +[facility] Department SW worked to arrange PT through [facility] locally to his home. His per [...] to quit smoking. Leana Okeefe M.D., PhD., [facility] Visit with Dr. Javed 12/29/21 Patient [...] hepatic coma 6 Cirrhosis of liver 09/04/2015 Family History Medical History Relation Name Comments [...] on file Legal Sex Male 5:47 PM WOMEN'S HEALTH CARE NURSE PRACTITIONER Gender Identity Not on file Sexual Orientation Not on file Last Filed Vital Signs Vital Sign Reading Time Taken Comments Blood Pressure 148/85 04/18/2024 11:27 AM WOMEN'S HEALTH CARE NURSE PRACTITIONER Pulse 99 04/18/2024 11:27 AM WOMEN'S HEALTH CARE NURSE PRACTITIONER Temperature 36.2 C (97.2 F) 04/18/2024 11:27 AM WOMEN'S HEALTH CARE NURSE PRACTITIONER Respiratory Rate 14 04/18/2024 11:27 AM WOMEN'S HEALTH CARE NURSE PRACTITIONER Oxygen Saturation 95% 04/18/2024 11:27 AM WOMEN'S HEALTH CARE NURSE PRACTITIONER Inhaled Oxygen Concentration - - Weight 86.2 kg (190 lb) 04/18/2024 11:27 AM WOMEN'S HEALTH CARE NURSE PRACTITIONER Height 180.3 cm (5' 10.98 ) 04/18/2024 11:27 AM WOMEN'S HEALTH CARE NURSE PRACTITIONER Body Mass Index 26.51 04/18/2024 11:27 AM WOMEN'S HEALTH CARE NURSE PRACTITIONER Plan of Treatment Upcoming Encounters Date Type Department Care Team (Late st Contact Info) Description 09/05/2024 12:30 PM CDT Office Visit [facility] [address] [facility], [place] [address] Isabel Holliday, HEALTH CARE FACILITY ADMINISTRATOR-FUR OPERATOR [address] [facility] FIRST LEVEL [place] [address] 09/06/2024 4:00 PM CDT Appointment [facility] OP DRAW STATION [address] [place] [id number] 09/06/2024 4:30 PM CDT Appointment [facility] [address] [place] [phone] Antwon Marmolejo MD [address] [place] [address] Health Maintenance Due Date Last Done Comments [...] Management General On track( 025 11:32 AM WOMEN'S HEALTH CARE NURSE PRACTITIONER) Carlton Herring, RN Note: Expected end date: Interventions: Take all medications as prescribed Let your doctor know right away about any changes in your medications Make sure to request a refill of your medication at least one week prior to your last dose Procedures Procedure Name Priority Date/Time Associated Diagnosis Comments COMPREHENSIVE METABOLIC PANEL Routine 04/18/2024 11:21 AM WOMEN'S HEALTH CARE NURSE PRACTITIONER HCC (hepatocellular carcinoma) LIPID PROFILE Routine 11/02/2021 1:13 PM CDT [...] Relevant to Health Maintenance Results * (ABNORMAL) COMPREHENSIVE METABOLIC PANEL (04/18/2024 11:21 AM WOMEN'S HEALTH CARE NURSE PRACTITIONER) BUN 9 7 - 26 mg/dL 04/18/2024 12:16 PM WOMEN'S HEALTH CARE NURSE PRACTITIONER [facility] Creatinine 0.69(L) 0.71 - 1.16 mg/dL 04/18/2024 12:16 PM [facility] Sodium 134(L) 136 - 145 mmol/L 04/18/2024 12:16 PM [facility] Potassium 3.8 3.5 - 4.5 mmol/L 04/18/2024 12:16 PM [facility] Chloride 100 98 - 107 mmol/L 04/18/2024 12:16 PM [facility] CO2 23 22 - 29 mmol/L 04/18/2024 12:16 PM [facility] Glucose 115(H) 70 - 99 mg/dL 04/18/2024 12:16 PM [facility] Calcium 8.9 8.4 - 10.2 mg/dL 04/18/2024 12:16 PM [facility] Protein Total 7.2 6.0 - 8.3 g/dL 04/18/2024 12:16 PM [facility] Albumin 3.2(L) 3.4 - 5.0 g/dL 04/18/2024 12:16 PM [facility] Bilirubin Total 1.0 0.2 - 1.2 mg/dL 04/18/2024 12:16 PM [facility] Alkaline Phosphatase 190(H) 40 - 150 U/L 04/18/2024 12:16 PM [facility] ALT 16 5 - 55 U/L 04/18/2024 12:16 PM [facility] AST 53(H) 5 - 34 U/L 04/18/2024 12:16 PM [facility] Anion Gap 11 6 - 16 04/18/2024 12:16 PM [facility] BUN/Creatinine Ratio 13 7 - 23 04/18/2024 12:16 PM [facility] Osmolality Calculated 278 275 - 295 mOsm/kg 04/18/2024 12:16 PM [facility] Albumin/Globulin Ratio 0.8(L) 1.1 - 2.3 04/18/2024 12:16 PM [facility] eGFR by CKD-EPI >90 >=90 mL/min/1.7 3 m2 04/18/2024 12:16 PM [facility] Blood BLOOD SPECIMEN / Unknown Lab Venipuncture / Unknown 04/18/2024 11:21 AM WOMEN'S HEALTH CARE NURSE PRACTITIONER 04/18/2024 11:44 AM WOMEN'S HEALTH CARE NURSE PRACTITIONER Isabel IBANEZ LAB - CHEMISTRY ORDERABL ES Final Result Performing Organization Address [facility]/ZIP Co de Phone Number [facility] [address] [place] [address], [facility] [phone] * (ABNORMAL) HEPATITIS C ANTIBODY (11/02/2021 1:13 PM CDT) Pathologist [facility] Hepatitis C Antibody Reactive( A) Non-react ita 11/02/2021 2:44 PM CDT [facility] Comment:Hepatitis C Antibody screen is consistent with past or current infection with Hepatitis C Virus. Nucleic Acid Test (KAZ) for Hepatitis C Viral RNA should be performed for initial HCV workup, and for differentiating active/chronic infection from resolved infection. Blood BLOOD SPECIMEN / Unknown Lab Venipuncture / Unknown 11/02/2021 1:13 PM CDT 11/02/2021 1:24 PM CDT us Henny Dunne MD LAB - CHEMISTRY ORDERABLES Fi nal Result Performing Organization Address [facility]/ZIP Co de Phone Number [address] [address], [facility] [phone] * (ABNORMAL) LIPID PROFILE (11/02/2021 1:13 PM CDT) Pathologist [facility] Cholesterol Total 100 <200 mg/dL 11/02/2021 1:49 PM CDT [facility] HDL 28(L) >40 mg/dL 11/02/2021 1:49 PM CDT [facility] Comment: ATP III Classification of HDL Cholesterol: <40 mg/dL: Considered a major risk factor. >60 mg/dL: Considered a negative risk factor. LDL Calculated 59 <100 mg/dL 11/02/2021 1:49 PM CDT [facility] Comment: ATP III Classification of LDL Cholesterol: <100 mg/dL: Optimal 100 - 129 mg/dL: Near Optimal/Above Optimal 130 - 159 mg/dL: Borderline High 160 - 189 mg/dL: High >190 mg/dL: Very High Triglycerides 63 <150 mg/dL 11/02/2021 1:49 PM CDT [facility] Comment: ATP III Classification of Triglycerides: <150 mg/dL: Normal 150 - 199 mg/dL: Borderline High 200 - 400 mg/dL: High >500 mg/dL: Very High Blood BLOOD SPECIMEN / Unknown Lab Venipuncture / Unknown 11/02/2021 1:13 PM CDT 11/02/2021 1:25 PM CDT us Henny Dunne MD LAB - CHEMISTRY ORDERABLES Fi nal Result [facility] [address] [place] [address], [facility] [phone] from Last 3 Months or Most Recently Relevant to Health Maintenance Insurance UHC MANAGED MEDICARE ADV MEDICAID [place] UHC MANAGED MEDICARE ADV Care Teams Legal Investigator Relationship Specialty Start Date End Date Bayron Mg MD [address] [place] [address] PCP - General 09/30/15
--- OUTSIDE RECORDS SUMMARY | 2024-07-31 14:05 | XMS_ITS | Clinical Summary ---
Author Organization [facility] Address [address] [place] [address] Care Team Providers Care Security Installation Sales Technician Name Role Phone Bayron Mg MD Primary Care Provider [phone] Allergies Active Allergy Reactions Criticality Noted Date [...] INFLUENZA VACCINE (#1) 2023 Insurance Care Teams Security Installation Sales Technician Relationship Specialty Start Date End Date Bayron Mg MD [address] [place] [phone] PCP - General Family Practice 02/16/21
--- OUTSIDE RECORDS SUMMARY | 2024-07-31 14:05 | XMS_ITS | Encounter Summary ---
Author Organization [facility] Address Replaced by [facility] [place] [address] Care Team Providers Care State Fire Marshal Name Role Phone Bayron Mg MD Primary Care Provider [phone] Encounter Details Date Type Department Care Team (Late st Contact Info) Description 09/02/2018 Abstract SFL CONVERSION [address] [place] [address] , Generic Conversion, Social History Tobacco Use [...] on filedocumented in this encounter Care Teams State Fire Marshal Relationship Specialty Start Date End Date Bayron Mg MD [address] [place] [address] PCP - General FAMILY PRACTICE 08/01/18 documented as of this encounter
--- OUTSIDE RECORDS SUMMARY | 2024-07-31 14:05 | XMS_ITS | Clinical Summary ---
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 Alcoholic cirrhosis of liver without ascites ([facility]) 08/07/2018 COPD (chronic obstructive pu lmonary disease) ([facility]) 08/07/2018 Major depressive disorder 08/07/2018 Cirrhosis of liver ([facility]) 09/04/2015 Viral hepatitis C without [...] Colonoscopy (10 Years) 1960 Annual Physical 1964 DTaP, Tdap and Td Vaccines (1 - Tdap) 1980 Pneumococcal Vaccine: 50+ Years (1 of 2 - PCV) 1980 Zoster Vaccines (1 of 2) 11/28/2011 [...] this topic Medical Devices Implanted Type Area Feather Edger Device Identifier Shelf Expiration Date Model / Serial / Lot [place] [employer]Sw[employer] C [employer] White/Black 4.75 X 19.1mm - [id number] Implanted:Qty: 1 on 03/29/2019 by Yogi Kirkpatrick MD at [facility] [employer] 09/24/2020 [id number] / / [id number] [place] [employer] C [employer] - [id number] Implanted:Qty: 1 on 03/29/2019 by Yogi Kirkpatrick MD at [facility] [employer] 10/25/2020 [id number] / / [id number] [place] [employer] - [id number] Implanted:Qty: 1 on 03/29/2019 by Yogi Kirkpatrick MD at [facility] [employer] 09/24/2020 [id number] / / [id number] [place] [employer] - [id number] Implanted:Qty: 1 on 03/29/2019 by Yogi Kirkpatrick MD at [facility] [employer] 09/24/2020 [id number] / / [id number] Implant System Arthrex Proximal [employer] - [id number] Implanted:Qty: 1 on 03/29/2019 by Yogi Kirkpatrick MD at [facility] [employer] 12/25/2022 [id number] / / [id number] Insurance MEDICAID MED[employer] [place] Member Subscriber Plan / Payer (Ef fective 2019-Present) Name:Olivier Street Relation to Subscriber:Self Name:Olivier Street Payer ID:Not on file Group ID:Not on file Type:Not on file Address: [address] Care Teams Restaurant Recruiter Relationship Specialty Start Date End Date Bayron Mg MD [address] [place] [id number] PCP - General FAMILY PRACTICE 08/01/18
--- OUTSIDE RECORDS SUMMARY | 2024-07-31 14:05 | XMS_ITS ---
Author Organization [facility] Health Address [address] [place] [address] Care Team Providers Care Straight Truck Driver Name Role Phone Bayron Mg MD Primary Care Provider [phone] Active Problems Problem Noted Date Diagnosed Date [...] > Dictated by Ravinder Sandra MD (residential collections). PT 10/09/21 Liver Frailty Score Frailty Index [...] evidence of periapical abscess. Needs: ID consult +[place] Department SW worked to arrange PT through [facility] locally to his home. His per [...] to quit smoking. Leana Maldonado, M.D., PhD., [facility] Visit with Dr. Javed 12/29/21 Patient Instructions [...]
--- OUTSIDE RECORDS SUMMARY | 2024-07-31 14:05 | XMS_ITS | Clinical Summary ---
Author Organization [facility] Address [address] [facility] [address] [place] [address] Phone Care Team Providers Care Hatchery Helper Name Role Phone Bayron Mg MD [...] Date Smoking Tobacco: Every Day Cigarettes 2 48.3 Started: 04/14/1976 Smokeless Tobacco: Never Tobacco Cessation:Ready [...] Comments Blood Pressure 142/70 02/19/2019 12:54 PM SHOWCASE TRIMMER Pulse 94 02/19/2019 12:54 PM SHOWCASE TRIMMER Temperature 36.7 C (98.1 F) 02/19/2019 12:54 PM SHOWCASE TRIMMER Respiratory Rate 18 02/19/2019 12:54 PM SHOWCASE TRIMMER Oxygen Saturation 95% 02/19/2019 12:54 PM SHOWCASE TRIMMER Inhaled Oxygen Concentration - - Weight 96.2 kg (212 lb) 02/19/2019 12:54 PM SHOWCASE TRIMMER Height 180.3 cm (5' 11 ) 02/19/2019 12:54 PM SHOWCASE TRIMMER Body Mass Index 29.57 02/19/2019 12:54 PM SHOWCASE TRIMMER Plan of Treatment Health Maintenance Due Date [...] Insurance MEDICAID [employer] Care Teams Hatchery Helper Relationship Specialty Start Date End Date Bayron Mg MD [address] [place] [address] PCP - General Pediatrics 01/17/18
== END 2024-07-31 13:59 | disposition home or self-care (01) ==
LOC: CHSLAB 13:59
PROVIDERS: PCP Family Medicine; Visit Provider Family Medicine
DX: R42 Dizziness and giddiness (principal); R06.02 Shortness of breath; I35.8 Other nonrheumatic aortic valve disorders
CPT/HCPCS: 93306

== ENCOUNTER 2024-12-14 16:40 | Outpatient (CLI) | payer MEDICARE, MEDICAID, SELFPAY ==
--- OUTSIDE RECORDS SUMMARY | 2024-12-14 16:46 | XMS_ITS | Clinical Summary ---
Author Organization [facility] Address [address] [place] [address] Care Team Providers Care Wild Life Photographer Name Role Phone Bayron Mg MD Primary Care Provider [phone] Allergies Active Allergy Reactions Criticality Noted Date [...] 1:11 PM CDT Height 180.3 cm (5' 11) 07/10/2021 1:11 PM CDT Body Mass Index [...] years 1-dose series) 2021 INFLUENZA VACCINE (#1) 2024 Insurance Care Teams Wild Life Photographer Relationship Specialty Start Date End Date Bayron Mg MD [address] [place] [phone] PCP - General Family Practice 02/16/21
--- OUTSIDE RECORDS SUMMARY | 2024-12-14 16:46 | XMS_ITS | Clinical Summary ---
Author Organization [facility] Address [address] [place] [address] Care Team Providers Care Corporate Attorney Name Role Phone Bayron Mg MD Primary Care Provider [phone] Source Comments [facility],non-owned Affiliates and Associated Physician Practices is amultiple site organization consisting of ambulatory clinics and hospital sitesin [place], [place], [place] and [place]. This disclosure is being madepursuant to the Care Everywhere program and may not contain all information available regarding this patient. Last updated 17.[facility] Allergies Active Allergy Reactions Criticality Noted Date [...] > Dictated by Ravinder Sandra MD (residential construction instructor). PT 10/09/21 Liver Frailty Score Frailty Index [...] evidence of periapical abscess. Needs: ID consult +[facility] Department SW worked to arrange PT through [facility] locally to his home. His per [...] quit smoking. Leana Okeefe M.D., PhD., [facility] Visit with Dr. Javed 12/29/21 [...] on file Legal Sex Male 5:47 PM CREDIT AND COLLECTIONS REPRESENTATIVE Gender Identity Not on file Sexual Orientation Not on file Last Filed Vital Signs Vital Sign Reading Time Taken Comments Blood Pressure 148/85 04/18/2024 11:27 AM CREDIT AND COLLECTIONS REPRESENTATIVE Pulse 99 04/18/2024 11:27 AM CREDIT AND COLLECTIONS REPRESENTATIVE Temperature 36.2 C (97.2 F) 04/18/2024 11:27 AM CREDIT AND COLLECTIONS REPRESENTATIVE Respiratory Rate 14 04/18/2024 11:27 AM CREDIT AND COLLECTIONS REPRESENTATIVE Oxygen Saturation 95% 04/18/2024 11:27 AM CREDIT AND COLLECTIONS REPRESENTATIVE Inhaled Oxygen Concentration - - Weight 86.2 kg (190 lb) 04/18/2024 11:27 AM CREDIT AND COLLECTIONS REPRESENTATIVE Height 180.3 cm (5' 10.98) 04/18/2024 11:27 AM CREDIT AND COLLECTIONS REPRESENTATIVE Body Mass Index 26.51 04/18/2024 11:27 AM CREDIT AND COLLECTIONS REPRESENTATIVE Plan of Treatment Health Maintenance Due Date [...] - Risk 60-74 years 1-dose series) 2021 DEPRESSION SCREENING 03/28/2024 12/29/2021 MEDICARE AWV CALENDAR YEAR 2024 COVID-19 VACCINE ( season) 2024 INFLUENZA VACCINE (#1) 2024 LIPID TESTING 11/02/2026 11/02/2021 SCREENING FOR [...] Management General On track( 025 11:32 AM CREDIT AND COLLECTIONS REPRESENTATIVE) No Carlton Castellanos, RN Note: Expected end date: Interventions: Take all medications as prescribed Let your doctor know right away about any changes in your medications Make sure to request a refill of your medication at least one week prior to your last dose Procedures Procedure Name Priority Date/Time Associated Diagnosis Comments COMPREHENSIVE METABOLIC PANEL Routine 04/18/2024 11:21 AM CREDIT AND COLLECTIONS REPRESENTATIVE HCC (hepatocellular carcinoma) LIPID PROFILE Routine 11/02/2021 [...] (ABNORMAL) COMPREHENSIVE METABOLIC PANEL (04/18/2024 11:21 AM [facility]) BUN 9 7 - 26 mg/dL 04/18/2024 12:16 PM [facility] Creatinine 0.69(L) 0.71 - 1.16 mg/dL 04/18/2024 12:16 PM [facility] Sodium 134(L) 136 - 145 mmol/L 04/18/2024 12:16 PM [facility] Potassium 3.8 3.5 - 4.5 mmol/L 04/18/2024 12:16 PM [facility] Chloride 100 98 - 107 mmol/L 04/18/2024 12:16 PM [facility] CO2 23 22 - 29 mmol/L 04/18/2024 12:16 PM [facility] Glucose 115(H) 70 - 99 mg/dL 04/18/2024 12:16 PM [facility] Calcium 8.9 8.4 - 10.2 mg/dL 04/18/2024 12:16 PM [facility] Protein Total 7.2 6.0 - 8.3 g/dL 04/18/2024 12:16 PM [facility] Albumin 3.2(L) 3.4 - 5.0 g/dL 04/18/2024 12:16 PM [facility] Bilirubin Total 1.0 0.2 - 1.2 mg/dL 04/18/2024 12:16 PM [facility] Alkaline Phosphatase 190(H) 40 - 150 U/L 04/18/2024 12:16 PM [facility] ALT 16 5 - 55 U/L 04/18/2024 12:16 PM [facility] AST 53(H) 5 - 34 U/L 04/18/2024 12:16 PM [facility] Anion Gap 11 6 - 16 04/18/2024 12:16 PM [facility] BUN/Creatinine Ratio 13 7 - 23 04/18/2024 12:16 PM [facility] Osmolality Calculated 278 275 - 295 mOsm/kg 04/18/2024 12:16 PM [facility] Albumin/Globulin Ratio 0.8(L) 1.1 - 2.3 04/18/2024 12:16 PM [facility] eGFR by CKD-EPI >90 >=90 mL/min/1.7 3 m2 04/18/2024 12:16 PM [facility] Blood BLOOD SPECIMEN / Unknown Lab Venipuncture / Unknown 04/18/2024 11:21 AM CREDIT AND COLLECTIONS REPRESENTATIVE 04/18/2024 11:44 AM [facility] us Isabel Holliday SOCIAL SCIENCES CHAIR-SALES REPRESENTATIVE DOOR TO DOOR LAB - CHEMISTRY ORDERABL ES Final Result [facility] [address] [place] [address], [facility] [phone] * (ABNORMAL) HEPATITIS C ANTIBODY (11/02/2021 1:13 PM CDT) Hepatitis C Antibody Reactive( A) Non-react ita 11/02/2021 2:44 PM CDT [facility] Comment:Hepatitis C Antibody screen is consistent with [...] ORDERABLES Fi nal Result Performing Organization Address [facility]/ZIP Co de Phone Number [facility] [address] [place] [address], [place] [phone] * (ABNORMAL) LIPID PROFILE (11/02/2021 1:13 PM CDT) Cholesterol Total 100 <200 mg/dL 11/02/2021 1:49 PM CDT [facility] HDL 28(L) >40 mg/dL 11/02/2021 1:49 PM T [facility] Comment: ATP III Classification of HDL Cholesterol: <40 mg/dL: Considered a major risk factor. >60 mg/dL: Considered a negative risk factor. LDL Calculated 59 <100 mg/dL 11/02/2021 1:49 PM CDT [facility] Comment: ATP III Classification of LDL Cholesterol: <100 mg/dL: Optimal 100 - 129 mg/dL: Near Optimal/Above Optimal 130 - 159 mg/dL: Borderline High 160 - 189 mg/dL: High >190 mg/dL: Very High Triglycerides 63 <150 mg/dL 11/02/2021 1:49 PM T [facility] Comment: ATP III Classification of Triglycerides: <150 mg/dL: Normal 150 - 199 mg/dL: Borderline High 200 - 400 mg/dL: High >500 mg/dL: Very High Blood BLOOD SPECIMEN / Unknown Lab Venipuncture / Unknown 11/02/2021 1:13 PM CDT 11/02/2021 1:25 PM CDT Henny Dunne MD LAB - CHEMISTRY ORDERABLES Fi nal Result Performing Organization Address City/[facility]/ZIP Co de Phone Number [facility] [address] [place] [address], [place] [phone] from Last 3 Months or Most Recently Relevant to Health Maintenance Insurance [facility] MANAGED MEDICARE [place]V [place] - [place] [facility] MANAGED MEDICARE ADV Care Teams Corporate Attorney Relationship Specialty Start Date End Date Bayron Mg MD [address] [place] [address] PCP - General 09/30/15
--- OUTSIDE RECORDS SUMMARY | 2024-12-14 16:46 | XMS_ITS | Clinical Summary ---
Author Organization [facility] Address [address] [facility] [address] [place] [address] Phone Care Team Providers Care Combustion Analyst Name Role Phone Bayron Mg MD [...] Date Smoking Tobacco: Every Day Cigarettes 2 48.7 Started: 04/14/1976 Smokeless Tobacco: Never Tobacco Cessation:Ready [...] Comments Blood Pressure 142/70 02/19/2019 12:54 PM MINING TEACHER Pulse 94 02/19/2019 12:54 PM MINING TEACHER Temperature 36.7 C (98.1 F) 02/19/2019 12:54 PM MINING TEACHER Respiratory Rate 18 02/19/2019 12:54 PM MINING TEACHER Oxygen Saturation 95% 02/19/2019 12:54 PM MINING TEACHER Inhaled Oxygen Concentration - - Weight 96.2 kg (212 lb) 02/19/2019 12:54 PM MINING TEACHER Height 180.3 cm (5' 11) 02/19/2019 12:54 PM MINING TEACHER Body Mass Index 29.57 02/19/2019 12:54 PM MINING TEACHER Plan of Treatment Health Maintenance Due Date Last Done Comments TdaP Immunization 1960 Cologuard 2006 Immunochemical Fecal Occult Blood 2006 Pneumococcal Immunization (50+ years) (1 of 1 - PCV) 11/28/2011 Zoster Immunization (1 of 2) 11/28/2011 Hepatitis B Immunization (2 of 3 - 19+ 3-dose series) 09/16/2015 08/19/2015 Colonoscopy 06/06/2019 06/05/2018, 05/14/2014 Colorectal Cancer Screening 06/06/2019 Influenza Immunization (#1) 11/26/202412/27, 02/14/2020, 12/29/2018, Additional history exists SARS-COV-2 Immunization ( - 2024- season) 2024 07/03/2020 Respiratory Syncytial Virus (RSV) Immunization (Adult) (1 - 1-dose 75+ series) 2036 Human Papillomavirus (HPV) Immunization Aged Out No longer eligible based on patient's age to complete this topic Meningococcal Immunization (ACWY) Aged Out No longer [...] Insurance MEDICAID [facility] Care Teams Combustion Analyst Relationship Specialty Start Date End Date Bayron Mg MD [address] [id number] PCP - General Pediatrics 01/17/18
--- OUTSIDE RECORDS SUMMARY | 2024-12-14 16:46 | XMS_ITS | Encounter Summary ---
Author Organization [facility] Address [facility] [place] [address] Care Team Providers Care Service Desk Agent Name Role Phone Bayron Mg MD Primary Care Provider [phone] Encounter Details Date Type Department Care Team (Late st Contact Info) Description 09/02/2018 Abstract [facility] CONVERSION [address] [place] [address] , Generic Conversion, Social History Tobacco Use Types Packs/Day Years Used Date Smoking Tobacco: Every Day Cigarettes 1.5 53.7 Started: 1970 Smokeless Tobacco: Never Alcohol Use [...] on filedocumented in this encounter Care Teams Service Desk Agent Relationship Specialty Start Date End Date Bayron Mg MD [address] [place] [address] PCP - General FAMILY PRACTICE 08/01/18 documented as of this encounter
--- OUTSIDE RECORDS SUMMARY | 2024-12-14 16:46 | XMS_ITS ---
Author Organization [facility] Address [address] [place] [address] Care Team Providers Care Biodiesel Division Manager Name Role Phone Bayron Mg MD Primary Care Provider [phone] Active Problems Problem Noted Date Diagnosed Date [...] > Dictated by Ravinder Sandra MD (residential treatment staff). PT 10/09/21 Liver Frailty Score Frailty Index [...] evidence of periapical abscess. Needs: ID consult +[facility] Department SW worked to arrange PT through [facility] locally to his home. His per [...] to quit smoking. Leana Maldonado, M.D., PhD., [facility] Visit with Dr. Javed 12/29/21 Patient [...]
[2024-12-14 17:03] LABS: Hematocrit 39.3 % (40.0-54.0); Hemoglobin 13.5 g/dL (14.0-18.0); Immature Granulocyte Percent A 0.2 % (0.0-0.0); Immature Platelet Fraction Pct 1.7 % (1.0-7.0); Lymphocytes Absolute Auto 2.01 K/mm3 (1.10-4.50); Mean Corpuscular HGB Conc 34.4 g/dL (32-36); Mean Corpuscular Hemoglobin 37.3 pg (27.0-31.0); Mean Corpuscular Volume 108.6 fL (78.0-102.0); Nucleated Red Blood Cells Absolute Auto 0.00 K/mm3 (0.00-0.00); Nucleated Red Blood Cells Perc 0.0 % (0-0.0); Platelet Count Result 106 K/mm3 (150-420); Red Blood Count 3.62 M/mm3 (4.70-6.10); White Blood Count 4.6 K/mm3 (4.8-10.8)
[2024-12-14 17:13] LABS: Ammonia 48 umol/L (9-30)
[2024-12-14 17:16] LABS: INR 1.1; Partial Thromboplastin Time 29.1 Sec (23.9-30.70); Prothrombin Time 11.9 Seconds (9.50-12.1)
[2024-12-14 17:23] LABS: Chloride 101 mmol/L (98-107); Potassium 4.3 mmol/L (3.4-5.0); Sodium 137 mmol/L (137-145)
[2024-12-14 17:24] LABS: Alanine Aminotransferase 9 U/L (6-50); Anion Gap 7 mmol/L (4-12); Aspartate Amino Transferase 46 U/L (17-59); Bilirubin,Total 0.8 mg/dL (0.2-1.3); Blood Urea Nitrogen 17 mg/dL (9-20); Calcium 9.5 mg/dL (8.4-10.2); Carbon Dioxide 29 mmol/L (22-30); Estimated Glomerular Filt Rate > 60; Glucose 125 mg/dL (65-110); Osmolality Calculated 286 mOsm/kg (285-295); Total Protein 9.9 g/dL (6.3-8.2)
[2024-12-14 17:25] LABS: Albumin Level 4.0 g/dL (3.5-5.1); Alkaline Phosphatase 164 U/L (38-126)
[2024-12-15 14:44] LABS: GGT 181.8 U/L (15-73); Prostate Specific Antigen 0.6 ng/mL (< OR = 4.0); Thyroid Stimulating Hormone 2.550 uIU/mL (0.465-4.680); Vitamin B12 431.0 pg/mL (239-931)
[2024-12-16 06:07] LABS: RPR Non Reactive (Non Reactive)
[2024-12-17 11:05] LABS: Iron 183 ug/dL (49-181)
[2024-12-17 11:15] LABS: Percent Iron Saturation 63 % (20-50)
[2024-12-17 11:41] LABS: Ferritin 146.00 ng/mL (11.1-264)
== END 2024-12-14 16:41 | disposition home or self-care (01) ==
LOC: CHSLAB 16:44
PROVIDERS: PCP Family Medicine; Visit Provider Family Medicine
DX: K70.30 Alcoholic cirrhosis of liver without ascites (principal); G31.84 Mild cognitive impairment of uncertain or unknown etiology; Z12.5 Encounter for screening for malignant neoplasm of prostate; D61.818 Other pancytopenia; R53.83 Other fatigue
CPT/HCPCS: 36415; 80053; 82140; 82607; 82728; 82746; 82977; 83540; 83550; 83921; 84153; 84443; 85025; 85055; 85610; 85730; 86592; G0103

== ENCOUNTER 2024-12-16 14:40 | Outpatient (NON) | payer MEDICARE, MEDICAID, SELFPAY ==
--- OUTSIDE RECORDS SUMMARY | 2024-12-16 14:44 | XMS_ITS | Clinical Summary ---
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 Alcoholic cirrhosis of liver without ascites ([facility]) 08/07/2018 COPD (chronic obstructive pu lmonary disease) ([facility]) 08/07/2018 Major depressive disorder 08/07/2018 Cirrhosis of liver ([facility]) 09/04/2015 Viral hepatitis C without [...] Date Smoking Tobacco: Every Day Cigarettes 3 53.7 Started: 1971 Smokeless Tobacco: Never Tobacco Cessation:Ready [...] 2:45 PM CDT Height 180.3 cm (5' 11) 09/19/2019 2:45 PM CDT Body Mass Index [...] 2021 COVID-19 Vaccine (1 - 2023- season) 2024 Hepatitis C Completed 11/02/2021, 02/26, 02/28/2019, Additional [...] this topic Medical Devices Implanted Type Area Ramp Jockey Device Identifier Shelf Expiration Date Model / Serial / Lot [employer] Suture Bio-Swivelock C Arthrex White/Black 4.75 X 19.1mm - [id number] Implanted:Qty: 1 on 03/29/2019 by Yogi Kirkpatrick MD at [facility] [employer] 09/24/2020 [id number] / / [id number] [employer] Suture Bio-Swivelock C Arthrex - [id number] Implanted:Qty: 1 on 03/29/2019 by Yogi Kirkpatrick MD at [facility] [employer] 10/25/2020 [id number] / / [id number] [employer] Suture Arthrex - [id number] Implanted:Qty: 1 on 03/29/2019 by Yogi Kirkpatrick MD at [facility] [employer] 09/24/2020 [id number] / / [id number] [employer] Suture Arthrex - [id number] Implanted:Qty: 1 on 03/29/2019 by Yogi Kirkpatrick MD at [facility] [employer] 09/24/2020 [id number] / / [id number] Implant System Arthrex Proximal Tenodesis - [id number] Implanted:Qty: 1 on 03/29/2019 by Yogi Kirkpatrick MD at [facility] [employer] 12/25/2022 [id number] / / [id number] Insurance MEDICAID [employer] Member Subscriber Plan / Payer (Ef fective 2019-Present) Name:Olivier Street Relation to Subscriber:Self Name:Olivier Street Payer ID:Not on file Group ID:Not on file Type:Not on file Address: [address] Care Teams Molder Machine Relationship Specialty Start Date End Date Bayron Mg MD [address] [id number] PCP - General FAMILY PRACTICE 08/01/18
--- OUTSIDE RECORDS SUMMARY | 2024-12-16 14:44 | XMS_ITS | Encounter Summary ---
Author Organization [facility] Address [facility] [place] [address] Care Team Providers Care Wheelchair Van Driver Name Role Phone Bayron Mg MD Primary Care Provider [phone] Encounter Details Date Type Department Care Team (Late st Contact Info) Description 09/02/2018 Abstract SFL CONVERSION [address] [place] [address] , Generic Conversion, Social History Tobacco Use [...] on filedocumented in this encounter Care Teams Wheelchair Van Driver Relationship Specialty Start Date End Date Bayron Mg MD [address] [place] [address] PCP - General FAMILY PRACTICE 08/01/18 documented as of this encounter
--- OUTSIDE RECORDS SUMMARY | 2024-12-16 14:44 | XMS_ITS | Clinical Summary ---
Author Organization [facility] Address [address] [place] [address] Care Team Providers Care Assistant Store Director Name Role Phone Bayron Mg MD Primary Care Provider [phone] Source Comments [facility],non-owned Affiliates and Associated Physician Practices is amultiple site organization consisting of ambulatory clinics and hospital sitesin [place], [place], [place] and [place]. This disclosure is being madepursuant to the Care Everywhere program and may not contain all information available regarding this patient. Last updated 17.[facility] Allergies Active Allergy Reactions Criticality Noted Date [...] varices. > Dictated by Ravinder Sandra MD (fixed income trading vice president). PT 10/09/21 Liver Frailty Score Frailty Index [...] evidence of periapical abscess. Needs: ID consult +[facility] Department SW worked to arrange PT through [facility] locally to his home. His per [...] to quit smoking. Leana Okeefe M.D., PhD., [facility] Visit with Dr. Javed 12/29/21 [...] on file Legal Sex Male 5:47 PM SANDBLAST OR SHOTBLAST EQUIPMENT TENDER Gender Identity Not on file Sexual Orientation Not on file Last Filed Vital Signs Vital Sign Reading Time Taken Comments Blood Pressure 148/85 04/18/2024 11:27 AM SANDBLAST OR SHOTBLAST EQUIPMENT TENDER Pulse 99 04/18/2024 11:27 AM SANDBLAST OR SHOTBLAST EQUIPMENT TENDER Temperature 36.2 C (97.2 F) 04/18/2024 11:27 AM SANDBLAST OR SHOTBLAST EQUIPMENT TENDER Respiratory Rate 14 04/18/2024 11:27 AM SANDBLAST OR SHOTBLAST EQUIPMENT TENDER Oxygen Saturation 95% 04/18/2024 11:27 AM SANDBLAST OR SHOTBLAST EQUIPMENT TENDER Inhaled Oxygen Concentration - - Weight 86.2 kg (190 lb) 04/18/2024 11:27 AM SANDBLAST OR SHOTBLAST EQUIPMENT TENDER Height 180.3 cm (5' 10.98) 04/18/2024 11:27 AM SANDBLAST OR SHOTBLAST EQUIPMENT TENDER Body Mass Index 26.51 04/18/2024 11:27 AM SANDBLAST OR SHOTBLAST EQUIPMENT TENDER Plan of Treatment Health Maintenance Due Date [...] Management General On track( 025 11:32 AM SANDBLAST OR SHOTBLAST EQUIPMENT TENDER) No Carlton Castellanos, RN Note: Expected end date: Interventions: Take all medications as prescribed Let your doctor know right away about any changes in your medications Make sure to request a refill of your medication at least one week prior to your last dose Procedures Procedure Name Priority Date/Time Associated Diagnosis Comments COMPREHENSIVE METABOLIC PANEL Routine 04/18/2024 11:21 AM SANDBLAST OR SHOTBLAST EQUIPMENT TENDER HCC (hepatocellular carcinoma) LIPID PROFILE Routine 11/02/2021 [...] COMPREHENSIVE METABOLIC PANEL (04/18/2024 11:21 AM [facility]) BUN 9 7 - 26 mg/dL 04/18/2024 12:[address] [facility] Creatinine 0.69(L) 0.71 - 1.16 mg/dL 04/18/2024 12:16 PM [facility] Sodium 134(L) 136 - 145 mmol/L 04/18/2024 12:16 PM [facility] Potassium 3.8 3.5 - 4.5 mmol/L 04/18/2024 12:[address] [facility] Chloride 100 98 - 107 mmol/L 04/18/2024 12:[address] [facility] CO2 23 22 - 29 mmol/L 04/18/2024 12:16 PM [facility] Glucose 115(H) 70 - 99 mg/dL 04/18/2024 12:16 PM [facility] Calcium 8.9 8.4 - 10.2 mg/dL 04/18/2024 12:16 PM [facility] Protein Total 7.2 6.0 - 8.3 g/dL 04/18/2024 12:[address] [facility] Albumin 3.2(L) 3.4 - 5.0 g/dL 04/18/2024 12:16 PM [facility] Bilirubin Total 1.0 0.2 - 1.2 mg/dL 04/18/2024 12:16 PM [facility] Alkaline Phosphatase 190(H) 40 - 150 U/L 04/18/2024 12:16 PM [facility] ALT 16 5 - 55 U/L 04/18/2024 12:16 PM [facility] AST 53(H) 5 - 34 U/L 04/18/2024 12:16 PM [facility] Anion Gap 11 6 - 16 04/18/2024 12:16 PM [facility] BUN/Creatinine Ratio 13 7 - 23 04/18/2024 12:16 PM [facility] Osmolality Calculated 278 275 - 295 mOsm/kg 04/18/2024 12:16 PM [facility] Albumin/Globulin Ratio 0.8(L) 1.1 - 2.3 04/18/2024 12:16 PM [facility] eGFR by CKD-EPI >90 >=90 mL/min/1.7 3 m2 04/18/2024 12:16 PM [facility] Blood BLOOD SPECIMEN / Unknown Lab Venipuncture / Unknown 04/18/2024 11:21 AM SANDBLAST OR SHOTBLAST EQUIPMENT TENDER 04/18/2024 11:44 AM [facility] us Isabel Holliday GRINDER SET UP OPERATOR SURFACE-NAPPING MACHINE OPERATOR LAB - CHEMISTRY ORDERABL ES Final Result [facility] [address] [place] [phone], [facility] [phone] * (ABNORMAL) HEPATITIS C ANTIBODY (11/02/2021 1:13 PM CDT) Hepatitis C Antibody Reactive( A) Non-react ita 11/02/2021 2:44 PM CDT [facility] Comment:Hepatitis C Antibody screen is consistent [...] ORDERABLES Fi nal Result Performing Organization Address [facility]/ZIP Co de Phone Number [facility] [address] [place] [address], [place] [phone] * (ABNORMAL) LIPID PROFILE (11/02/2021 1:13 PM CDT) Cholesterol Total 100 <200 mg/dL 11/02/2021 1:49 PM CDT [facility] HDL 28(L) >40 mg/dL 11/02/2021 1:49 PM T [facility] Comment: ATP III Classification of HDL Cholesterol: <40 mg/dL: Considered a major risk factor. >60 mg/dL: Considered a negative risk factor. LDL Calculated 59 <100 mg/dL 11/02/2021 1:49 PM CDT [facility] Comment: ATP III Classification of LDL Cholesterol: <100 mg/dL: Optimal 100 - 129 mg/dL: Near Optimal/Above Optimal 130 - 159 mg/dL: Borderline High 160 - 189 mg/dL: High >190 mg/dL: Very High Triglycerides 63 <150 mg/dL 11/02/2021 1:49 PM T [facility] Comment: ATP III Classification of Triglycerides: <150 mg/dL: Normal 150 - 199 mg/dL: Borderline High 200 - 400 mg/dL: High >500 mg/dL: Very High Blood BLOOD SPECIMEN / Unknown Lab Venipuncture / Unknown 11/02/2021 1:13 PM CDT 11/02/2021 1:25 PM CDT Henny Dunne MD LAB - CHEMISTRY ORDERABLES Fi nal Result Performing Organization Address City/[facility]/ZIP Co de Phone Number [facility] [address] [place] [address], [place] [phone] from Last 3 Months or Most Recently Relevant to Health Maintenance Insurance [facility] MANAGED MEDICARE AD[place] [facility] MANAGED MEDICARE ADV Care Teams Assistant Store Director Relationship Specialty Start Date End Date Bayron Mg MD [address] [place] [address] PCP - General 09/30/15
--- OUTSIDE RECORDS SUMMARY | 2024-12-16 14:44 | XMS_ITS | Clinical Summary ---
Author Organization [facility] Address [address] [place] [address] Care Team Providers Care Keg Inspector Name Role Phone Bayron Mg MD [...] series) 2021 INFLUENZA VACCINE (#1) 2024 Insurance [facility] Address: [address] [address] Care Teams Keg Inspector Relationship Specialty Start Date End Date Bayron Mg MD [address] [place] [phone] PCP - General Family Practice 02/16/21
--- OUTSIDE RECORDS SUMMARY | 2024-12-16 14:44 | XMS_ITS | Clinical Summary ---
Author Organization [facility] Address [address] [facility] [address] [address] [place] [address] Phone Care Team Providers Care Repairer Typewriter Name Role Phone Bayron Mg MD Primary [...] Comments Blood Pressure 142/70 02/19/2019 12:54 PM MANAGER BUSINESS Pulse 94 02/19/2019 12:54 PM MANAGER BUSINESS Temperature 36.7 C (98.1 F) 02/19/2019 12:54 PM MANAGER BUSINESS Respiratory Rate 18 02/19/2019 12:54 PM MANAGER BUSINESS Oxygen Saturation 95% 02/19/2019 12:54 PM MANAGER BUSINESS Inhaled Oxygen Concentration - - Weight 96.2 kg (212 lb) 02/19/2019 12:54 PM MANAGER BUSINESS Height 180.3 cm (5' 11) 02/19/2019 12:54 PM MANAGER BUSINESS Body Mass Index 29.57 02/19/2019 12:54 PM MANAGER BUSINESS Plan of Treatment Health Maintenance Due Date [...] Insurance MEDICAID [employer] Care Teams Repairer Typewriter Relationship Specialty Start Date End Date Bayron Mg MD [address] [phone] PCP - General Pediatrics 01/17/18
--- OUTSIDE RECORDS SUMMARY | 2024-12-16 14:44 | XMS_ITS ---
Author Organization [facility] Address [address] [place] [address] Care Team Providers Care Tableman Name Role Phone Bayron Mg MD Primary Care Provider [phone] Active Problems Problem Noted Date Diagnosed Date [...] > Dictated by Ravinder Sandra MD (resident physician in radiology). PT 10/09/21 Liver Frailty Score Frailty Index [...] evidence of periapical abscess. Needs: ID consult +[facility] Department SW worked to arrange PT through [facility] locally to his home. His per [...] to quit smoking. Leana Maldonado, M.D., PhD., [facility] Visit with Dr. Javed 12/29/21 Patient Instructions [...]
[2024-12-16 15:11] LABS: Add Urine Microscopic? NO; Appearance Urine Clear (Clear); Glucose Urine UA Negative (Negative); Leukocyte Esterase Ur Negative (Negative); Nitrate Urine Negative (Negative); Specific Grav Ur 1.010 (1.010-1.020)
== END 2024-12-16 14:41 | disposition home or self-care (01) ==
LOC: CHSLAB 14:42
PROVIDERS: PCP Family Medicine; Visit Provider Family Medicine
DX: K70.30 Alcoholic cirrhosis of liver without ascites (principal); G31.84 Mild cognitive impairment of uncertain or unknown etiology; Z12.5 Encounter for screening for malignant neoplasm of prostate
CPT/HCPCS: 81003

== ENCOUNTER 2025-02-27 14:53 | Outpatient (CLI) | payer MEDICARE, MEDICAID, SELFPAY ==
--- NOTE | 2025-02-27 | CONSULT_PTH ---
PATIENT: [address] [facility][id number] AGE/SX: 64/M ROOM: RE02/27/[address]: Osorio Wilkes MD : 1960 BED: DIS: 02/27/2025 SPEC #: [id number] RECD: 02/27/25 15:55 STATUS: CHIP RETrevin #: [id number] DENI: 02/27/25 00:[address]: Osorio Wilkes DEPT: [facility] Consult RECD BY: Rachelle Granger MLT, ([facility]) ENTERED: 02/27/25 15:55 SP TYPE: Consult OTHR DR: Bayron Mg MD Tissues: A - Peripheral Smear Procedures: Hematology Consult
[2025-02-27 15:30] LABS: Hematocrit 40.8 % (40.0-54.0); Hemoglobin 13.8 g/dL (14.0-18.0); Immature Platelet Fraction Pct 2.2 % (1.0-7.0); Mean Corpuscular HGB Conc 33.8 g/dL (32-36); Mean Corpuscular Hemoglobin 36.8 pg (27.0-31.0); Mean Corpuscular Volume 108.8 fL (78.0-102.0); Platelet Count Result 100 K/mm3 (150-420); Red Blood Count 3.75 M/mm3 (4.70-6.10); White Blood Count 3.0 K/mm3 (4.8-10.8)
[2025-02-27 15:40] LABS: Alanine Aminotransferase 12 U/L (6-50); Albumin Level 4.2 g/dL (3.5-5.1); Alkaline Phosphatase 166 U/L (38-126); Anion Gap 10 mmol/L (4-12); Aspartate Amino Transferase 44 U/L (17-59); Bilirubin,Total 0.9 mg/dL (0.2-1.3); Blood Urea Nitrogen 7 mg/dL (9-20); Calcium 9.2 mg/dL (8.4-10.2); Carbon Dioxide 27 mmol/L (22-30); Chloride 103 mmol/L (98-107); Estimated Glomerular Filt Rate > 60; Glucose 103 mg/dL (65-110); Iron 190 ug/dL (49-181); Osmolality Calculated 288 mOsm/kg (285-295); Potassium 4.1 mmol/L (3.4-5.0); Sodium 140 mmol/L (137-145); Total Protein 8.1 g/dL (6.3-8.2)
[2025-02-27 15:48] LABS: Percent Iron Saturation 68 % (20-50)
[2025-02-27 16:12] LABS: Band Neutrophils Percent 2 % (0-6); Lymphocytes Absolute Manual 0.75 K/mm3 (1.1-4.5); Lymphocytes Percent Manual 25 % (18-44)
[2025-02-27 16:13] LABS: Basophils Absolute Manual 0.03 K/mm3 (0-0.1); Basophils Percent Manual 1 % (0-1); Eosinophils Absolute Manual 0.24 K/mm3 (0.02-0.50); Eosinophils Percent Manual 8 % (1-6); Monocytes Absolute Manual 0.33 K/mm3 (0.1-0.90); Monocytes Percent Manual 11 % (3-9)
[2025-02-27 16:14] LABS: Ferritin 141.00 ng/mL (11.1-264)
--- OUTSIDE RECORDS SUMMARY | 2025-02-27 16:26 | XMS_ITS ---
Author Organization [facility] Health Address [address] [place] [address] Care Team Providers Care Women'S Apparel Salesperson Name Role Phone Bayron gM MD Primary Care Provider [phone] Active Problems Problem Noted Date Diagnosed Date [...] varices. > Dictated by Ravinder Sandra MD (vice president of nursing). PT 10/09/21 Liver Frailty Score Frailty Index [...] evidence of periapical abscess. Needs: ID consult +[place] Department SW worked to arrange PT through [facility] locally to his home. His per [...] smoking. Leana Maldonado, M.D., PhD., [facility] Visit with Dr. Javed 12/29/21 [...]
--- OUTSIDE RECORDS SUMMARY | 2025-02-27 16:26 | XMS_ITS | Clinical Summary ---
Author Organization [facility] [employer] Address [address] [place] [address] Care Team Providers Care Model Builder Name Role Phone Bayron Mg MD Primary Care Provider [phone] Source Comments [facility] [employer],non-owned Affiliates and Associated Physician Practices is amultiple site organization consisting of ambulatory clinics and hospital sitesin [place], [place], [place] and [place]. This disclosure is being madepursuant to the Care Everywhere program and may not contain all information available regarding this patient. Last updated 17.[facility] [employer] Allergies Active Allergy Reactions Criticality Noted Date [...] Dictated by Ravinder Sandra MD (vice president underwriting). PT 10/09/21 Liver Frailty Score Frailty Index [...] evidence of periapical abscess. Needs: ID consult +[facility] Department SW worked to arrange PT through [facility] locally to his home. His per [...] to quit smoking. Leana Okeefe M.D., PhD., [facility] Visit with Dr. Javed 12/29/21 Patient Instructions [...] on file Legal Sex Male 5:47 PM CUSTOMER SUPPORT EXECUTIVE Gender Identity Not on file Sexual Orientation Not on file Last Filed Vital Signs Vital Sign Reading Time Taken Comments Blood Pressure 148/85 04/18/2024 11:27 AM CUSTOMER SUPPORT EXECUTIVE Pulse 99 04/18/2024 11:27 AM CUSTOMER SUPPORT EXECUTIVE Temperature 36.2 C (97.2 F) 04/18/2024 11:27 AM CUSTOMER SUPPORT EXECUTIVE Respiratory Rate 14 04/18/2024 11:27 AM CUSTOMER SUPPORT EXECUTIVE Oxygen Saturation 95% 04/18/2024 11:27 AM CUSTOMER SUPPORT EXECUTIVE Inhaled Oxygen Concentration - - Weight 86.2 kg (190 lb) 04/18/2024 11:27 AM CUSTOMER SUPPORT EXECUTIVE Height 180.3 cm (5' 10.98) 04/18/2024 11:27 AM CUSTOMER SUPPORT EXECUTIVE Body Mass Index 26.51 04/18/2024 11:27 AM CUSTOMER SUPPORT EXECUTIVE Plan of Treatment Health Maintenance Due Date [...] - PCV) 1980 LUNG CANCER SCREENING 11/28/2011 Respiratory Syncytial Virus (RSV) Vaccine Pt: or over 60 yrs (1 - Risk 50-74 years 1-dose series) 11/28/2011 ZOSTER VACCINE (1 of 2) 11/28/2011 HEPATITIS B VACCINE (1 of 3 - Risk 3-dose series) 2021 DEPRESSION SCREENING 03/28/2024 12/29/2021 MEDICARE [...] Management General On track( 025 11:32 AM CUSTOMER SUPPORT EXECUTIVE) Carlton Herring, RN Note: Expected end date: Interventions: Take all medications as prescribed Let your doctor know right away about any changes in your medications Make sure to request a refill of your medication at least one week prior to your last dose Procedures Procedure Name Priority Date/Time Associated Diagnosis Comments COMPREHENSIVE METABOLIC PANEL Routine 04/18/2024 11:21 AM CUSTOMER SUPPORT EXECUTIVE HCC (hepatocellular carcinoma) LIPID PROFILE Routine 11/02/2021 [...] (ABNORMAL) COMPREHENSIVE METABOLIC PANEL (04/18/2024 11:21 AM [facility] [[email or web address] BUN 9 7 - 26 mg/dL 04/18/2024 12:16 PM [facility] Creatinine 0.69(L) 0.71 - 1.16 mg/dL 04/18/2024 12:16 PM [facility] Sodium 134(L) 136 - 145 mmol/L 04/18/2024 12:16 PM [facility] Potassium 3.8 3.5 - 4.5 mmol/L 04/18/2024 12:16 PM [facility] Chloride 100 98 - 107 mmol/L 04/18/2024 12:16 PM [facility] CO2 23 22 - 29 mmol/L 04/18/2024 12:16 PM [facility] Glucose 115(H) 70 - 99 mg/dL 04/18/2024 12:16 PM [facility] Calcium 8.9 8.4 - 10.2 mg/dL 04/18/2024 12:16 PM [facility] Protein Total 7.2 6.0 - 8.3 g/dL 04/18/2024 12:16 PM [facility] Albumin 3.2(L) 3.4 - 5.0 g/dL 04/18/2024 12:16 PM [facility] Bilirubin Total 1.0 0.2 - 1.2 mg/dL 04/18/2024 12:16 PM [facility] Alkaline Phosphatase 190(H) 40 - 150 U/L 04/18/2024 12:16 PM [facility] ALT 16 5 - 55 U/L 04/18/2024 12:16 PM [facility] AST 53(H) 5 - 34 U/L 04/18/2024 12:16 PM [facility] Anion Gap 11 6 - 16 04/18/2024 12:16 PM [facility] BUN/Creatinine Ratio 13 7 - 23 04/18/2024 12:16 PM [facility] Osmolality Calculated 278 275 - 295 mOsm/kg 04/18/2024 12:16 PM [facility] Albumin/Globulin Ratio 0.8(L) 1.1 - 2.3 04/18/2024 12:16 PM [facility] eGFR by CKD-EPI >90 >=90 mL/min/1.7 3 m2 04/18/2024 12:16 PM [facility] Blood BLOOD SPECIMEN / Unknown Lab Venipuncture / Unknown 04/18/2024 11:21 AM CUSTOMER SUPPORT EXECUTIVE 04/18/2024 11:44 AM [facility] [[email or web address]] us Isabel Holliday [employer] DESIGNER-GRAB DRIVER LAB - CHEMISTRY ORDERABL ES Final Result [facility] [address] [place] [address], [facility] [phone] * (ABNORMAL) HEPATITIS C ANTIBODY (11/02/2021 1:13 PM CDT) Hepatitis C Antibody Reactive( A) Non-react ita 11/02/2021 2:44 PM CDT [facility] Comment:Hepatitis C Antibody screen is consistent [...] ORDERABLES Fi nal Result Performing Organization Address [facility] [place] [facility] Co de Phone Number [facility] [address] [place] [address], [place] [phone] * (ABNORMAL) LIPID PROFILE (11/02/2021 1:13 PM CDT) Cholesterol Total 100 <200 mg/dL 11/02/2021 1:49 PM CDT [facility] HDL 28(L) >40 mg/dL 11/02/2021 1:49 PM CDT [facility] Comment: ATP III Classification of HDL Cholesterol: <40 mg/dL: Considered a major risk factor. >60 mg/dL: Considered a negative risk factor. LDL Calculated 59 <100 mg/dL 11/02/2021 1:49 PM CDT [facility] Comment: ATP III Classification of LDL Cholesterol: <100 mg/dL: Optimal 100 - 129 mg/dL: Near Optimal/Above Optimal 130 - 159 mg/dL: Borderline High 160 - 189 mg/dL: High >190 mg/dL: Very High Triglycerides 63 <150 mg/dL 11/02/2021 1:49 PM CDT [facility] Comment: ATP III Classification of Triglycerides: <150 mg/dL: Normal 150 - 199 mg/dL: Borderline High 200 - 400 mg/dL: High >500 mg/dL: Very High Blood BLOOD SPECIMEN / Unknown Lab Venipuncture / Unknown 11/02/2021 1:13 PM CDT 11/02/2021 1:25 PM CDT Henny Dunne MD LAB - CHEMISTRY ORDERABLES Fi nal Result Performing Organization Address City/[facility] [place] [facility]/ZIP Co de Phone Number [facility] [address] [place] [address], [place] [phone] from Last 3 Months or Most Recently Relevant to Health Maintenance Insurance [facility] MANAGED MEDICARE ADV MEDICAID - [place] [facility] MANAGED MEDICARE ADV Care Teams Model Builder Relationship Specialty Start Date End Date Bayron Mg MD [address] [place] [address] PCP - General 09/30/15
--- OUTSIDE RECORDS SUMMARY | 2025-02-27 16:26 | XMS_ITS | Clinical Summary ---
Author Organization [facility] Jyotsna blackman [facility] Address [address] [place] [address] Care Team Providers Care Supervisor Plastering Name Role Phone Bayron Mg MD Primary Care Provider [phone] Allergies Active Allergy Reactions Criticality Noted Date [...] Flex Sig/CT Colonography Q 5 years 2006 RSV VACCINE (60+ or ) (1 - Risk 50-74 years 1-dose series) 11/28/2011 ZOSTER VACCINE (1 of 2) 11/28/2011 INFLUENZA VACCINE (#1) 2024 Insurance [facility] [id number] Care Teams Supervisor Plastering Relationship Specialty Start Date End Date Bayron Mg MD [address] [place] [address] PCP - General Family Practice 02/16/21
--- OUTSIDE RECORDS SUMMARY | 2025-02-27 16:26 | XMS_ITS | Data Portability ---
Author Organization [facility], [address] [place] [address] [place]rology ([place]) Address [address] [address] Assessment Encounter Date Assessment Date Assessment LastModified [...] Organization Details Recorded Time Parkinson 's disease 15337670 Active 024 Avril Campos MD [address] [place] [address], [id number] , [facility] 08/25/2023 15:01:55 Problem Notes None recorded. Medical Equipment None Reported. Allergies Allergen ID Allergen Name Allergen Category Reaction Reaction Severity Criticality Documentation Date Start Date Code Code System Note Provider Name and Address Organization Details Recorded Time 6658501 Product containin g penicilli n (product) medicatio n Not available Not available Not available 04/27/20232021 91429 8001 SNOMED Not Available [facility] 4 04:31:47 Medications Name Sig Start Date Stop Date Status Note LastModified by Organization Details LastModified Time citalopram 40 mg tablet active Not Available Not Available Not Available trazodone 50 mg tablet active Not Available Not Available No t Available risperidone 4 mg tablet active Not Available Not Available Not Available doxycycline monohydrate 100 mg tablet active Not Available Not Available Not Available quetiapine 100 mg tablet active Not Available Not Available Not Available albuterol sulfate HFA 90 mcg/actuatio n aerosol inhaler active Not Available Not Available Not Available carbidopa 25 mg-levodopa 100 mg tablet TAKE ONE TABLET BY MOUTH AT 8 A.M., AT 11 A.M., AT 2 P.M., 5PM, AND AT 8 P.M. PLEASE MAKE FOLLOW UP -- NEEDS APPOINTMENT FOR FURTHER REFILLS -- LAST REFILL CALL [phone] 2024 active Not Available Not Available Not Avai lable fluticasone 232 mcg-salmeter ol 14 mcg/actuatio n breath activated powdr active Not Available Not Available Not Available Vitals Date Recorded Body weight Heart rate Respiratory rate Oxygen saturation Systolic And Diastolic Provider Name and Address Organization Details Last Updated DateTime 4 80605.7 9 g 87 /min 18 /min 95 % 139/81 mm[Hg] [facility] 4 16:55:41 Social History None recorded. Functional Status None recorded. Mental Status None recorded. Family History Nothing Reported. Medical History No medical history recorded. Past Encounters Encounter ID Performer Location Encounter Start Date Encounter Closed Date Diagnosis/Indication Diagnosis SNOMED-CT Code Diagnosis ICD10 Code Diagnosis IMO Codes Diagnosis Note [id number] Avril Campos MD [facility] Neurology ([place]) [address] [place] [address] 08/15/2023 16:52:36 08/26/2023 16:41:04 Parkinson's disease 13856369 G20.A1 Health Concerns Section Related Observation LastModified by Organization Detai ls LastModified Time None Recorded Concern Status LastModified by Organization Details LastModified Time None Recorded Advance Directives Directive None Recorded Payers Insurance Date Sequence Insurance Name Policy Number Policy William Covered Member ID William Member ID Guarantor Name 10/01/2024 1 [facility] (MEDICARE REPLACEMENT/A DVANTAGE - PPO) [id number] 10/01/2024 2 [place] [employer] Olivier Jbmilagros [id number] Olivier Jbmilagros Notes Date Note Type Note Provider Name [...] this time. Avril Campos MD [address] [address] [facility], [place], [address], [facility] 08/25/2023 15:03:17
--- OUTSIDE RECORDS SUMMARY | 2025-02-27 16:26 | XMS_ITS | Clinical Summary ---
Author Organization [facility] Address [address] [facility] [address] [place] [address] Phone Care Team Providers Care Tower Equipment Repairer Name Role Phone Bayron Mg MD Primary [...] Date Smoking Tobacco: Every Day Cigarettes 2 48.9 Started: 04/14/1976 Smokeless Tobacco: Never Tobacco Cessation:Ready [...] Comments Blood Pressure 142/70 02/19/2019 12:54 PM MOBILE MARKETING MANAGER Pulse 94 02/19/2019 12:54 PM MOBILE MARKETING MANAGER Temperature 36.7 C (98.1 F) 02/19/2019 12:54 PM MOBILE MARKETING MANAGER Respiratory Rate 18 02/19/2019 12:54 PM MOBILE MARKETING MANAGER Oxygen Saturation 95% 02/19/2019 12:54 PM MOBILE MARKETING MANAGER Inhaled Oxygen Concentration - - Weight 96.2 kg (212 lb) 02/19/2019 12:54 PM MOBILE MARKETING MANAGER Height 180.3 cm (5' 11) 02/19/2019 12:54 PM MOBILE MARKETING MANAGER Body Mass Index 29.57 02/19/2019 12:54 PM MOBILE MARKETING MANAGER Plan of Treatment Health Maintenance Due Date [...] Insurance MEDICAID [employer] Care Teams Tower Equipment Repairer Relationship Specialty Start Date End Date Bayrno Mg MD [address] [place] [id number] PCP - General Pediatrics 01/17/18
[2025-02-27 16:46] LABS: Vitamin B12 818.0 pg/mL (239-931)
== END 2025-02-27 14:54 | disposition home or self-care (01) ==
LOC: CHSLAB 14:58
PROVIDERS: PCP Family Medicine; Visit Provider Internal Medicine Hematology
DX: C22.9 Malignant neoplasm of liver, not specified as primary or secondary (principal)
CPT/HCPCS: 36415; 80053; 82105; 82607; 82728; 82746; 83540; 83550; 85025; 85055